=== PATIENT | female | born 1985 | race Caucasian/White ===

== ENCOUNTER 2017-08-20 09:46 | Inpatient (IN) ==
[2017-08-20] MEDS ORDERED: Vancomycin Inj 1,000 MG in Sodium Chlor 0.9% Inj 250 ML IV.SIG STA (10:19)
[2017-08-20] MEDS ORDERED: Piperacil/Tazo 4.5 GM Premix 4.5 GM/100 ML BAG IV.SIG STA (10:19)
--- NOTE | 2017-08-20 10:28 | ED ---
HPI General Chief complaint: Skin/Abscess/Foreign Body Stated complaint: Medical Time Seen by Provider: 08/20/17 10:11 Source: patient and old records reviewed Mode of arrival: ambulatory Limitations: no limitations History of Present Illness HPI narrative: 32-year-old female presents to the emergency department for evaluation of infection to her left upper chest wall as well as increasing pain and infection to her right great toe. Patient has IV drug user. She states she currently uses IV heroin. Patient was here recently and left AGAINST MEDICAL ADVICE on July 27 after being admitted for osteomyelitis of the right great toe and sepsis. She had surgery on the right great toe. Patient has not been seen or evaluated since he left AMA. She reports increasing swelling, pain , erythema to the right great toe. She reports fevers up to 102 in the past few days. She is afebrile at this time. She reports no chronic medical problems and takes no prescribed medications. She rates her pain 10/10. Moderate severity. complaint: other (Cellulitis) Onset (ago): week(s) Location: chest and R foot Severity: moderate Severity scale (1-10): 10 Quality: aching Pain Consistency: constant Relieving factors: none Exacerbating factors: none Context: none Associated symptoms: denies other symptoms Treatments prior to arrival: other (Previous admission, but left AMA) Related Data Home Medications Medication Instructions Recorded Confirmed No Known Home Medications 08/20/17 08/20/17 Allergies Allergy/AdvReac Type Severity Reaction Status Date / Time *MDRO Multi-Drug Resistant AdvReac Unknown NONE Uncoded 08/20/17 10:09 Organism Review of Systems Except as stated in HPI: all other systems reviewed are negative [facility] Social History Social History Substance History: Active Abuse Second Hand Smoke Exposure: Yes Smoking Status: Current every day smoker Tobacco Type: Cigarettes How Often Do You Have a Drink Containing Alcohol: Monthly or less Recent Travel in [facility] within the Last 8 Weeks: No Recent Out of Country Travel within the Last 8 Weeks: No Substance Abuse Detail Crack/Cocaine: Substance Use Status: Active Heroin: Substance Use Status: Active Route Used Substance Abuse: Intravenously Course Initial Documented Vital Signs Temperature 98.1 F 08/20/17 10:01 Pulse Rate 106 H 08/20/17 10:01 Respiratory Rate 18 08/20/17 10:01 Blood Pressure 111/74 08/20/17 10:01 Pulse Oximetry 100 08/20/17 10:01 Last Documented Vital Signs Temperature 98.1 F 08/20/17 10:05 Pulse Rate 78 08/20/17 14:00 Respiratory Rate 17 08/20/17 14:00 Blood Pressure 119/76 08/20/17 10:15 Pulse Oximetry 100 08/20/17 14:00 Medical Decision Making MDM Narrative Medical decision making narrative: 32-year-old female presents to the emergency department for evaluation of infection to her left upper chest wall and worsening infection to her right great toe. She underwent surgery recently for osteomyelitis in the left AMA. IV access established. CBC, CMP, lactic acid, PTT, PT/INR, ESR, CRP, blood cultures 2 are ordered and pending. Patient is given normal saline 30 mL/kg. Urine test is ordered and pending. Chest x-ray, x-ray of the right foot are ordered and pending. Patient is given vancomycin 1 g IV, Zosyn 4.5 g IV. CBC shows WBC of 9.3, neut % 83.6. ESR is pending. CMP shows no acute abnormality. CRP is 7.87. Lactic acid is 0.7. Chest x-ray shows no evidence of acute cardiopulmonary disease. X-ray of the right foot shows osteomyelitis proximal phalanx great toe progressed in the interval. Patient will be admitted for cellulitis of chest wall, osteomyelitis of the right great toe. Differential Diagnosis Differential Diagnosis: Sepsis versus osteomyelitis versus cellulitis versus abscess Medical Records Medical records reviewed: Yes I reviewed the patient's medical records. Lab Data Result diagrams: 08/20/17 12:00 08/20/17 12:00 Lab Results 08/20/17 08/20/17 08/20/17 Range/Units 12:00 12:00 12:00 WBC 9.3 (4.0-11.0) th/mm3 RBC 4.05 (4.00-5.30) mil/mm3 Hgb 11.0 L (11.6-15.3) gm/dL Hct 33.3 L (35.0-46.0) % MCV 82.2 (80.0-100.0) fL MCH 27.2 (27.0-34.0) pg MCHC 33.0 (32.0-36.0) % RDW 14.9 (11.6-17.2) % Plt Count 670 H (150-450) th/mm3 MPV 6.8 L (7.0-11.0) fL Neut % (Auto) 83.6 H (16.0-70.0) % Lymph % (Auto) 11.4 (9.0-44.0) % [place] % (Auto) 4.4 (0.0-8.0) % Eos % (Auto) 0.4 (0.0-4.0) % Baso % (Auto) 0.2 (0.0-2.0) % Neut # (Auto) 7.8 H (1.8-7.7) th/mm3 Lymph # (Auto) 1.1 (1.0-4.8) th/mm3 [place] # (Auto) 0.4 (0.0-0.9) th/mm3 Eos # (Auto) 0.0 (0.0-0.4) th/mm3 Baso # (Auto) 0.0 (0.0-0.2) th/mm3 WBC Differential . Differential Comment Auto diff final ESR (0-20) mm/hr PT 11.1 (9.8-11.6) sec INR 1.1 Ratio APTT 30.8 H (24.3-30.1) sec Sodium 141 (136-145) meq/L Potassium 3.8 (3.5-5.1) meq/L Chloride 105 (98-107) meq/L Carbon Dioxide 26.4 (21.0-32.0) meq/L Anion Gap 10 (5-15) meq/L BUN 10 (7-18) mg/dL Creatinine 0.35 L (0.50-1.00) mg/dL Estimated GFR Greater than 89 (>89) mL/min Random Glucose 82 (74-106) mg/dL Lactic Acid (0.4-2.0) mmol/L Calcium 8.6 (8.5-10.1) mg/dL Total Bilirubin 0.3 (0.2-1.0) mg/dL AST 7 L (15-37) U/L ALT 12 (10-53) U/L Alkaline Phosphatase 93 (45-117) U/L C-Reactive Protein (0.00-0.30) mg/dL Total Protein 7.2 (6.4-8.2) g/dL Albumin 2.7 L (3.4-5.0) g/dL 08/20/17 08/20/17 08/20/17 Range/Units 12:00 12:00 12:00 WBC (4.0-11.0) th/mm3 RBC (4.00-5.30) mil/mm3 Hgb (11.6-15.3) gm/dL Hct (35.0-46.0) % MCV (80.0-100.0) fL MCH (27.0-34.0) pg MCHC (32.0-36.0) % RDW (11.6-17.2) % Plt Count (150-450) th/mm3 MPV (7.0-11.0) fL Neut % (Auto) (16.0-70.0) % Lymph % (Auto) (9.0-44.0) % [place] % (Auto) (0.0-8.0) % Eos % (Auto) (0.0-4.0) % Baso % (Auto) (0.0-2.0) % Neut # (Auto) (1.8-7.7) th/mm3 Lymph # (Auto) (1.0-4.8) th/mm3 [place] # (Auto) (0.0-0.9) th/mm3 Eos # (Auto) (0.0-0.4) th/mm3 Baso # (Auto) (0.0-0.2) th/mm3 WBC Differential Differential Comment ESR 73 H (0-20) mm/hr PT (9.8-11.6) sec INR Ratio APTT (24.3-30.1) sec Sodium (136-145) meq/L Potassium (3.5-5.1) meq/L Chloride (98-107) meq/L Carbon Dioxide (21.0-32.0) meq/L Anion Gap (5-15) meq/L BUN (7-18) mg/dL Creatinine (0.50-1.00) mg/dL Estimated GFR (>89) mL/min Random Glucose (74-106) mg/dL Lactic Acid 0.7 (0.4-2.0) mmol/L Calcium (8.5-10.1) mg/dL Total Bilirubin (0.2-1.0) mg/dL AST (15-37) U/L ALT (10-53) U/L Alkaline Phosphatase (45-117) U/L C-Reactive Protein 7.87 H (0.00-0.30) mg/dL Total Protein (6.4-8.2) g/dL Albumin (3.4-5.0) g/dL Imaging Data Radiologist's impression: ITS Impressions Chest X-Ray 08/20/17 10:19 CONCLUSION: 1. Resolution of mild bilateral airspace disease 2. No evidence of acute cardiopulmonary process. Foot X-Ray 08/20/17 10:23 CONCLUSION: Osteomyelitis proximal phalanx great toe progressed in the interval. Discharge Plan Discharge Disposition Patient Disposition: 30 Still Patient Discharge Details Diagnosis: Acute osteomyelitis of toe, Cellulitis, IVDU (intravenous drug user) Physicians Team ED Provider: Moris Liang ED Midlevel Provider: Erika Gonzáles Primary Care Provider: Primary Care Niki Alejandro Attending Provider: Kenn Chapman Status ED Status: Admitted Patient ED Sepsis Event Note Evaluation Current stage of sepsis: ruled out Reason for ruling out sepsis: no elevated WBC count, lactic not elevated Focused Exam Vital Signs Temp Pulse Resp BP Pulse Ox 08/20/17 14:00 78 17 100 08/20/17 10:30 100 08/20/17 10:15 94 H 17 119/76 08/20/17 10:05 98.1 F 114 H 16 111/74 98 08/20/17 10:01 98.1 F 106 H 18 111/74 100
--- NOTE | 2017-08-20 10:46 | XR ---
EXAM DATE: 08/20/2017 10:41 AM EDT AGE/SEX: 32 years / Female INDICATIONS: Abscess on midline upper chest. CLINICAL DATA: This is the patient's initial encounter. Patient reports that signs and symptoms have been present for 1 day and indicates a pain score of 0/10. MEDICAL/SURGICAL HISTORY: . Smoking. None. COMPARISON: [facility] – [place], CHEST SINGLE AP, 07/24/2017. . FINDINGS: Bilateral midlung airspace disease described previously has resolved. Lungs are well-expanded and clear. Heart and mediastinal structures appear normal. CONCLUSION: 1. Resolution of mild bilateral airspace disease 2. No evidence of acute cardiopulmonary process. Electronically signed by: Tien Díaz MD 08/20/2017 10:44 AM EDT
--- NOTE | 2017-08-20 10:49 | XR ---
EXAM DATE: 08/20/2017 10:46 AM EDT AGE/SEX: 32 years / Female INDICATIONS: Pain in right first digit post surgery on June 17, redness and swelling. CLINICAL DATA: This is the patient's initial encounter. Patient reports that signs and symptoms have been present for 2 months and indicates a pain score of 10/10. MEDICAL/SURGICAL HISTORY: None. . Bone shaving, right first digit. COMPARISON: [facility] [place], FOOT RIGHT COMPLETE ([id number]), 07/24/2017. . FINDINGS: Osteomyelitis involving the proximal phalanx of the great toe progressed in the interval. No other bony destruction is evident. CONCLUSION: Osteomyelitis proximal phalanx great toe progressed in the interval. Electronically signed by: Gordo Coley MD 08/20/2017 10:48 AM EDT
[2017-08-20] MEDS ORDERED: Ketorolac Inj 30 MG/ML (IVP) Vial IV.PUSH ONE (12:14)
[2017-08-20 12:32] LABS: Baso % (Auto) 0.2 % (0.0-2.0); Eos % (Auto) 0.4 % (0.0-4.0); Hematocrit 33.3 % (35.0-46.0); Lymph # (Auto) 1.1 th/mm3 (1.0-4.8); Lymph % (Auto) 11.4 % (9.0-44.0); Mean Corpuscular Hemoglobin 27.2 pg (27.0-34.0); Mean Corpuscular Volume 82.2 fL (80.0-100.0); Mean Platelet Volume 6.8 fL (7.0-11.0); Mono # (Auto) 0.4 th/mm3 (0.0-0.9); Mono % (Auto) 4.4 % (0.0-8.0); Neut # (Auto) 7.8 th/mm3 (1.8-7.7); Neut % (Auto) 83.6 % (16.0-70.0); Platelet Count 670 th/mm3 (150-450); Red Blood Count 4.05 mil/mm3 (4.00-5.30); Red Cell Distribution Width 14.9 % (11.6-17.2); White Blood Count 9.3 th/mm3 (4.0-11.0)
[2017-08-20 12:40] LABS: Activated Partial Thrombo Time 30.8 sec (24.3-30.1); INR 1.1 Ratio; Prothrombin Time 11.1 sec (9.8-11.6)
[2017-08-20 12:52] LABS: Alanine Aminotransferase 12 U/L (10-53); Albumin 2.7 g/dL (3.4-5.0); Anion Gap 10 meq/L (5-15); Aspartate Aminotransferase 7 U/L (15-37); Blood Urea Nitrogen 10 mg/dL (7-18); Calcium 8.6 mg/dL (8.5-10.1); Carbon Dioxide 26.4 meq/L (21.0-32.0); Chloride 105 meq/L (98-107); Glomerular Filtration Rate Greater Than 89 mL/min (>89); Glucose,Random 82 mg/dL (74-106); Potassium 3.8 meq/L (3.5-5.1); Sodium 141 meq/L (136-145)
[2017-08-20 12:54] LABS: Alkaline Phosphatase 93 U/L (45-117); Total Protein 7.2 g/dL (6.4-8.2)
[2017-08-20] MEDS ORDERED: Acetaminophen 325 MG Tablet PO PRN (14:27)
[2017-08-20] MEDS ORDERED: Bisacodyl 10 MG Supp RECTAL PRN (14:27)
[2017-08-20] MEDS ORDERED: Naloxone Inj 0.4 MG/ML Vial IV.PUSH PRN (15:14)
--- NOTE | 2017-08-20 15:27 | P.HP ---
History of Present Illness Primary Care Physician: No Primary Care Physician Chief Complaint: Right great toe pain and multiple skin abscesses History of Present Illness: 32-year-old female with history of IVDU, right great toe osteomyelitis and previously admitted to [place] on July 25, 2017, seen by podiatry and underwent incision and drainage along with debridement of right great toe osteomyelitis July 27, 2017, as well as infectious disease specialist will have patient on vancomycin and cefepime for bacteremia, skin abscesses and osteomyelitis however patient signed AMA then, came to the ED today for evaluation of painful right great toe and multiple abscesses. Patient has not had any follow-up after signing AMA last month. She now complaining of anterior left chest abscess and significant right great toe pain rated over 10 in intensity. Patient reports subjective fever. She continue use of IVDU. - Diagnosis (1) Abscess of skin and subcutaneous tissue (2) Acute osteomyelitis of toe (3) Cellulitis (4) IVDU (intravenous drug user) Inpatient Certification: I certify that the inpatient services were ordered in accordance with Medicare regulations governing the order. This includes certification that hospital inpatient services are reasonable and necessary and in the case of services not specified as inpatient-only under 42 CFR 419.22(n), that they are appropriately provided as inpatient services in accordance to with the 2-midnight benchmark under 43 CFR 412.3(e) Estimated Total Length of Stay (Days): 2 Plans for Post Hospital Care: Not yet determined Review of Systems All other systems reviewed negative except as stated in HPI PMFSH - History History Provided By: Patient - Tobacco History Second Hand Smoke Exposure: Yes Tobacco Use In Past 30 Days: Yes Smoking Status: Current every day smoker Tobacco Type: Cigarettes - Alcohol History How Often Do You Have a Drink Containing Alcohol: Monthly or less - Substance Use History Substance History: Active Abuse - Substance Use Type Crack/Cocaine Status: Active Heroin Status: Active Route Used: Intravenously - Travel History Recent Travel in the [place] Within the Last 8 Weeks: No Recent Travel Out of the Country Within the Last 8 Weeks: No - Immunization History Tetanus Immunization: <5 Years Medications and Allergies Active Medications: Active Medications Acetaminophen (Tylenol) 650 mg PO Q4H PRN PRN Reason: Temp > 100.4 Hydrocodone Bitart/Acetaminophen ([place] 10/325) 1 tab PO Q4H PRN PRN Reason: PAIN SCALE 6 TO 10 Al Hydroxide/Mg Hydroxide (Milk Of Magnesia Liq) 30 ml PO Q12H PRN PRN Reason: Mild Constipation Bisacodyl (Dulcolax Supp) 10 mg RECTAL DAILY PRN PRN Reason: SEVERE CONSITIPATION Lactated Ringer's (Lr 1000 Ml Inj) 1,000 mls @ 70 mls/hr IV.CONT .[id number] AMBIKA Cefepime HCl 2,000 mg/ Sodium (Chloride) 100 mls @ 200 mls/hr IV.SIG Q12H [facility] Pharmacy Profile Note (Vancomycin Consult Pharmacy) 0 mls @ 0 mls/hr OTHER UNSCH AMBIKA Vancomycin HCl 1,250 mg/ (Sodium Chloride) 262.5 mls @ 250 mls/hr IV.SIG Q24H [facility] Lactobacillus Acidophilus (Lactinex) 1 tab PO BID [facility] Lactulose (Lactulose Liq) 30 ml PO DAILY PRN PRN Reason: SEVERE CONSITIPATION Naloxone HCl (Narcan Inj) 0.4 mg IV.PUSH UNSCH PRN PRN Reason: SEE LABEL COMMENTS Ondansetron HCl (Zofran Inj) 4 mg IV.PUSH Q6H PRN PRN Reason: NAUSEA OR VOMITING Oxycodone HCl (Roxicodone) 5 mg PO Q4H PRN PRN Reason: PAIN SCALE 3 TO 5 Senna/Docusate Sodium (Lori-Colace) 1 tab PO BID [facility] Sennosides (Senokot) 17.2 mg PO Q12H PRN PRN Reason: Moderate Constipation Temazepam (Restoril) 15 mg PO HS PRN PRN Reason: INSOMNIA Allergies Allergy/AdvReac Type Severity Reaction Status Date / Time *MDRO Multi-Drug Resistant AdvReac Unknown NONE Uncoded 08/20/17 10:09 Organism Home Medications Medication Instructions Recorded Confirmed Type No Known Home Medications 08/20/17 08/20/17 History Exam Vital signs: Vital Signs 08/20/17 10:01 08/20/17 10:05 08/20/17 10:15 Temperature 98.1 F 98.1 F Pulse Rate 106 H 114 H 94 H Respiratory Rate 18 16 17 Blood Pressure 111/74 111/74 119/76 Pulse Oximetry 100 98 08/20/17 10:30 08/20/17 14:00 Temperature Pulse Rate 78 Respiratory Rate 17 Blood Pressure Pulse Oximetry 100 100 Intake & Output 08/19/17 08/20/17 08/20/17 18:59 06:59 18:59 Weight 49.895 kg Narrative: GENERAL: mild distress SKIN: Warm and dry. Multiple skin abscesses HEAD: Atraumatic. Normocephalic. EYES: Pupils equal and round. No scleral icterus. No injection or drainage. ENT: No nasal bleeding or discharge. Mucous membranes pink and moist. NECK: Trachea midline. No JVD. CARDIOVASCULAR: Regular rate and rhythm. RESPIRATORY: No accessory muscle use. Clear to auscultation. Breath sounds equal bilaterally. GASTROINTESTINAL: Abdomen soft, non-tender, nondistended. Hepatic and splenic margins not palpable. MUSCULOSKELETAL: Extremities without clubbing, cyanosis, or edema. No obvious deformities. Right great toe ulceration with surrounding cellulitis and erythema NEUROLOGICAL: Awake and alert. No obvious cranial nerve deficits. Motor grossly within normal limits. Five out of 5 muscle strength in the arms and legs. Normal speech. PSYCHIATRIC: Appropriate mood and affect; insight and judgment normal. Results - Labs CBC & Chem 7: 08/20/17 12:00 08/20/17 12:00 Labs: Laboratory Results - last 24 hr 08/20/17 08/20/17 08/20/17 12:00 12:00 12:00 WBC 9.3 RBC 4.05 Hgb 11.0 L Hct 33.3 L MCV 82.2 MCH 27.2 MCHC 33.0 RDW 14.9 Plt Count 670 H MPV 6.8 L Neut % (Auto) 83.6 H Lymph % (Auto) 11.4 [place] % (Auto) 4.4 Eos % (Auto) 0.4 Baso % (Auto) 0.2 Neut # (Auto) 7.8 H Lymph # (Auto) 1.1 [place] # (Auto) 0.4 Eos # (Auto) 0.0 Baso # (Auto) 0.0 WBC Differential . Differential Comment Auto diff final ESR PT 11.1 INR 1.1 APTT 30.8 H Sodium 141 Potassium 3.8 Chloride 105 Carbon Dioxide 26.4 Anion Gap 10 BUN 10 Creatinine 0.35 L Estimated GFR Greater than 89 Random Glucose 82 Lactic Acid Calcium 8.6 Total Bilirubin 0.3 AST 7 L ALT 12 Alkaline Phosphatase 93 C-Reactive Protein Total Protein 7.2 Albumin 2.7 L 08/20/17 08/20/17 08/20/17 12:00 12:00 12:00 WBC RBC Hgb Hct MCV MCH MCHC RDW Plt Count MPV Neut % (Auto) Lymph % (Auto) [place] % (Auto) Eos % (Auto) Baso % (Auto) Neut # (Auto) Lymph # (Auto) [place] # (Auto) Eos # (Auto) Baso # (Auto) WBC Differential Differential Comment ESR 73 H PT INR APTT Sodium Potassium Chloride Carbon Dioxide Anion Gap BUN Creatinine Estimated GFR Random Glucose Lactic Acid 0.7 Calcium Total Bilirubin AST ALT Alkaline Phosphatase C-Reactive Protein 7.87 H Total Protein Albumin - Imaging Impressions Chest X-Ray 08/20/17 10:19 CONCLUSION: 1. Resolution of mild bilateral airspace disease 2. No evidence of acute cardiopulmonary process. Foot X-Ray 08/20/17 10:23 CONCLUSION: Osteomyelitis proximal phalanx great toe progressed in the interval. Caprini VTE Risk Assessment Caprini VTE Risk Assessment: No/Low Risk (score <= 1) Caprini Risk Assessment Model: Point Value = 1 Point Value = 2 Point Value = 3 Point Value = 5 Age 41-60 Minor surgery BMI > 25 kg/m2 Swollen legs Varicose veins or History of unexplained or recurrent spontaneous Oral contraceptives or hormone replacement Sepsis (< 1 month) Serious lung disease, including pneumonia (< 1 month) Abnormal pulmonary function Acute myocardial infarction Congestive heart failure (< 1 month) History of inflammatory bowel disease Medical patient at bed rest Age 61-74 Arthroscopic surgery Major open surgery (> 45 min) Laparoscopic surgery (> 45 min) Malignancy Confined to bed (> 72 hours) Immobilizing plaster cast Central venous access Age >= 75 History of VTE Family history of VTE Factor V Leiden Prothrombin [id number] Lupus anticoagulant Anticardiolipin antibodies Elevated serum homocysteine Heparin-induced thrombocytopenia Other congenital or acquired thrombophilia Stroke (< 1 month) Elective arthroplasty Hip, pelvis, or leg fracture Acute spinal cord injury (< 1 month) Prophylaxis Regimen: Total Risk Factor Score Risk Level Prophylaxis Regimen 0-1 Low Early ambulation 2 Moderate Order ONE of the following: *Sequential Compression Device (SCD) *Heparin 5000 units SQ BID 3-4 Higher Order ONE of the following medications: *Heparin 5000 units SQ TID *Enoxaparin/Lovenox 40 mg SQ daily (WT < 150 kg, CrCl > 30 mL/min) *Enoxaparin/Lovenox 30 mg SQ daily (WT < 150 kg, CrCl > 10-29 mL/min) *Enoxaparin/Lovenox 30 mg SQ BID (WT < 150 kg, CrCl > 30 mL/min) AND/OR *Sequential Compression Device (SCD) 5 or more Highest Order ONE of the following medications: *Heparin 5000 units SQ TID (Preferred with Epidurals) *Enoxaparin/Lovenox 40 mg SQ daily (WT < 150 kg, CrCl > 30 mL/min) *Enoxaparin/Lovenox 30 mg SQ daily (WT < 150 kg, CrCl > 10-29 mL/min) *Enoxaparin/Lovenox 30 mg SQ BID (WT < 150 kg, CrCl > 30 mL/min) AND *Sequential Compression Device (SCD) Assessment and Plan - Assessment (1) Abscess of skin and subcutaneous tissue Code(s): L02.91 - Cutaneous abscess, unspecified Status: Acute (2) Acute osteomyelitis of toe Code(s): M86.179 - Other acute osteomyelitis, unspecified ankle and foot Status: Acute (3) Cellulitis Code(s): L03.90 - Cellulitis, unspecified Status: Acute (4) IVDU (intravenous drug user) Code(s): F19.90 - Other psychoactive substance use, unspecified, uncomplicated Status: Acute - Plan 32-year-old female with Right great toe osteomyelitis Status post vancomycin and Zosyn in ED 1, will continue vancomycin and start cefepime IV Consult podiatry for evaluation for possible incision and drainage along with debridement versus amputation Consult infectious disease specialist Skin abscesses Cellulitis Due to MRSA Will treat with vancomycin and cefepime Monitor culture report IVDU Strongly counseled against Consider 2D echo to rule out endocarditis Check HIV Tobacco abuse Tobacco counseling cessation provided Start nicotine patch (2) Acute osteomyelitis of toe Qualifiers: Laterality: right Qualified Code(s): M86.171 - Other acute osteomyelitis, right ankle and foot (3) Cellulitis Qualifiers: Site of cellulitis: trunk Site of cellulitis of trunk: chest wall Qualified Code(s): L03.313 - Cellulitis of chest wall
[2017-08-20] MEDS ORDERED: Vancomycin Consult Pharmacy 1 EACH OTHER SCH (16:00)
[2017-08-20] MEDS: Vancomycin Inj 1,000 MG in Sodium Chlor 0.9% Inj 250 ML IV.SIG SCH (17:46)
--- NOTE | 2017-08-20 18:52 | MB ---
cc: Too Piña DPM, Dennis B DPM DATE: 08/20/2017 REASON FOR CONSULTATION: Right hallux ulcer, osteomyelitis. HISTORY OF PRESENT ILLNESS: This is a 32-year-old female who has a history of right proximal phalanx incision, drainage, debridement that was performed by the undersigned. The patient left AMA. She now has returned to the hospital requesting treatments. She does admit to drug use while she left the hospital. She is not in significant discomfort. PAST MEDICAL HISTORY: Osteomyelitis, cellulitis. The patient has a history of IV drug abuse, smoker. History of crack cocaine. SOCIAL HISTORY: She admits that she is homeless. She has a history of MRSA. ALLERGIES: NO KNOWN DRUG ALLERGIES LISTED MEDICATIONS: She is currently on cefepime and vancomycin. Please see complete med list in chart, also on Zosyn. PHYSICAL EXAMINATION: VITAL SIGNS: Temperature 97.6, pulse rate 89, respiratory rate 20, blood pressure 118/71. She is sating 100% on room air. GENERAL: This is an alert and oriented female seen bedside exhibiting nonlabored respiration. EXTREMITIES: Right lower extremity is examined. There is noted to be a necrotic purulent incision of the dorsal aspect of right hallux IPJ with crepitus and instability. Moderate edema and erythema noted. Pedal pulse is palpable. Sensation intact. LABORATORY DATA: White blood cell 9.3, hemoglobin and hematocrit, 11/33, platelet count 670. ESR 73. Coagulation profile: PT 11.1, INR 1.1. Chem-7: Sodium 141, potassium 3.8, chloride 105, CO2 of 26.4, BUN 10, creatinine 0.35. C-reactive protein 7.87, albumin 2.7. IMAGING STUDIES: Osteomyelitis of the proximal phalanx great toe with positive progression worsening. ASSESSMENT AND PLAN: Right hallux osteomyelitis, poor patient compliance. We attempted to salvage the digit. The patient needed long-term IV antibiotics; however, she left AMA. I do feel at this time she is best served with a hallux amputation to eradicate the bone infection; however, there is a high chance that she will leave the hospital shortly after having the hallux amputation. If not compliant; this will progress to a first metatarsal infection and furthermore to a mid foot infection, furthermore to hindfoot infection, likely resulting in loss of limb if not worse. I educated the patient in great details of further progression if she continues to be noncompliant. She understood. She vowed to be compliant. I am hoping the patient can eat, get hydrated and prepare the soft tissue envelope with 2-3 days of IV antibiotics in anticipation for hallux amputation sometime early in the week. Thank you for this consultation. NANCY Cardenas/ , 06:25 PM , 06:50 PM ERIC
--- NOTE | 2017-08-20 19:38 | MB ---
cc: Jesse Tello MD, Franklyn F MD DATE: 08/20/2017 REQUESTING PHYSICIAN: Dr. Chapman REASON FOR CONSULTATION:: A 32-year-old female with IVDU, history of right great toe osteomyelitis and cellulitis, multiple skin abscesses. HISTORY OF PRESENT ILLNESS: This is a 32-year-old white female who is known to me from recent admission. The patient signed out against medical advice while she was being treated for sepsis and osteomyelitis involving the right great toe. She developed multiple skin abscesses and was having severe pain when she presented to the emergency department. Her cultures grew out MRSA from the blood and the right great toe wound. She was evaluated by podiatry and she had surgical intervention, which consisted of incision and drainage and bone debridement. The patient was notified that she would need long-term IV antibiotics. However, she signed out of the hospital against medical advice. She returned to the emergency department, because she was having increasing pain and she developed swelling and redness at the right chest wall at the upper aspect of the sternum and towards the left clavicle. She states that she was having difficulty raising her left arm rather because of pain. She went back to using IV drugs while she was outside of the hospital in the form of IV heroin and crack cocaine. She is afebrile. Blood cultures were repeated today. The patient was seen in the ED earlier today. Foot x-ray reveals osteomyelitis of the proximal phalanx of the great toe, which has progressed since her last admission. Chest x-ray shows resolution of mild bilateral airspace disease. During last hospitalization, echocardiogram revealed trace mitral valve regurgitation and also trace tricuspid valve regurgitation. There is no mention of valve vegetation. PAST MEDICAL HISTORY: IV drug abuse. ALLERGIES: NO KNOWN DRUG ALLERGIES. MEDICATIONS: 1. Cefepime. 2. Vancomycin. 3. Oxycodone 5 mg p.o. q.4 hours p.r.n. 4. Nicotine patch. SOCIAL HISTORY: Positive tobacco use, occasional alcohol. Positive IV drug use. FAMILY HISTORY: Noncontributory. REVIEW OF SYSTEMS: Significant for pain. Otherwise, all systems are reviewed and are negative. PHYSICAL EXAMINATION: GENERAL: This is a slender female who is in no acute distress but appears chronically ill. She is awake and alert. VITAL SIGNS: Includes temperature of 97.6, BP 118/71, respirations 20, heart rate 89. HEENT: The head is atraumatic. Extraocular movements grossly intact. Pupils reactive to light. No icterus. Oropharynx moist mucosa without lesions. NECK: Supple without adenopathy. LUNGS: Clear. Decreased breath sounds bilaterally. HEART: Regular S1 and S2. No murmurs heard. CHEST: There is erythema and swelling over the upper sternum and left clavicle. ABDOMEN: Bowel sounds present. Soft, no tenderness appreciated. No masses palpable. RECTAL: Not performed. EXTREMITIES: Multiple nodular raised skin lesions of the upper extremities, including the antecubital areas and forearms and the right great toe is swollen and there is mild erythema. There is a small amount of maceration at the dorsal aspect of the great toe where the patient had undergone incision and debridement. SKIN: No diffuse rash. NEUROLOGIC: No gross focal findings. PSYCHIATRIC: Patient is calm and cooperative. LABORATORY DATA: WBC 9.3, platelets 670, hemoglobin 11.0. ESR 73, creatinine 0.35, estimated GFR greater than 89. LFTs normal. IMPRESSION: 1. Multiple skin abscesses. 2. Chest wall abscess/cellulitis. 3. Sepsis. The patient is known to have methicillin resistant staph aureus on recent hospitalization prior to signing out against medical advice and not receiving antibiotics on discharge. 4. Intravenous drug use. 5. Osteomyelitis of the right great toe. RECOMMENDATIONS: 1. Continue vancomycin. 2. Continue cefepime. 3. Follow the new blood cultures. 4. Monitor the chest wound. Consider doing a CT scan of the chest to see if she is not developing abscess versus osteomyelitis. 5. Follow clinical response to treatment and antibiotics to be adjusted depending on new findings and cultures. Thank you for this consultation. The patient will be monitored while she remains in the hospital. MD SHILA Ashraf/ , 06:56 PM , 07:36 PM
[2017-08-20] MEDS: Lactobacillus Acidophilus/L. Spores Tablet PO SCH (20:41)
[2017-08-20] MEDS: Senna/Docusate Sodium 8.6/50 MG Tablet PO SCH (20:41)
[2017-08-21] MEDS: Vancomycin Inj 1,000 MG in Sodium Chlor 0.9% Inj 250 ML IV.SIG SCH ×2 (05:03→17:00)
[2017-08-21] MEDS ORDERED: Vancomycin Inj 1,250 MG in Sodium Chlor 0.9% Inj 250 ML IV.SIG SCH (09:00)
[2017-08-21] MEDS: Lactobacillus Acidophilus/L. Spores Tablet PO SCH ×2 (09:10→22:24)
[2017-08-21] MEDS: Senna/Docusate Sodium 8.6/50 MG Tablet PO SCH ×2 (09:10→22:24)
--- NOTE | 2017-08-21 10:57 | P.PN ---
Subjective Interval history: Follow-up right great toe osteomyelitis/skin abscesses and cellulitis August 21, 2017-patient seen and examined, complains of left anterior chest pain at the site of sKIN: There is an indurated area in the. Afebrile. Case discussed with Dr. Lund, podiatry Physical Exam Vital signs: Vital Signs 08/20/17 14:00 08/20/17 14:27 08/20/17 18:04 Temperature 97.6 F Pulse Rate 78 87 89 Respiratory Rate 17 17 20 Blood Pressure 118/71 Pulse Oximetry 100 96 100 08/20/17 20:00 08/21/17 00:00 08/21/17 04:00 Temperature 98.1 F 98.7 F 98 F Pulse Rate 99 H 106 H 101 H Respiratory Rate 18 18 18 Blood Pressure 123/62 117/69 122/63 Pulse Oximetry 98 99 98 08/21/17 08:00 Temperature 98.2 F Pulse Rate 96 H Respiratory Rate 18 Blood Pressure 122/83 Pulse Oximetry 97 Intake & Output 08/20/17 08/21/17 08/21/17 18:59 06:59 18:59 Intake Total 250 / 250 1060 / 1060 1000 / 1000 Output Total 300 / 300 Balance 250 / 250 760 / 760 1000 / 1000 Weight 44.906 kg 44.6 kg Intake: IV 250 / 250 700 / 700 1000 / 1000 LR 1000 mL Inj 1,000 ML @ 70 1000 / 1000 mls/hr IV.CONT .[id number] [facility] Rx# :[id number] Maxipime Inj 2,000 MG In NS Inj 100 / 100 100 ML @ 200 mls/hr IV.SIG Q12H [facility] Rx#:[id number] Zosyn 4.5 GM Premix 4.5 gm In 100 / 100 100 ml @ 200 mls/hr IV.SIG STAT STA Rx#:[id number] Vancomycin Inj 1,000 MG In NS 250 / 250 500 / 500 Inj 250 ML @ 250 mls/hr IV.SIG Q12H [facility] Rx#:[id number] Oral 360 / 360 Output: Urine 300 / 300 Other: # Voids 1 1 # Bowel Movements 1 Weight On Admission 44.906 kg Narrative: GENERAL: NAD, A&O x 3 SKIN: Warm and dry. Multiple skin abscesses anterior left chest, bilateral upper extremities HEAD: Normocephalic. EYES: No scleral icterus. No injection or drainage. NECK: Supple, trachea midline. No JVD or lymphadenopathy. CARDIOVASCULAR: Tachy,regular rate and rhythm without murmurs, gallops, or rubs. RESPIRATORY: Breath sounds equal bilaterally. No accessory muscle use. GASTROINTESTINAL: Abdomen soft, non-tender, nondistended. MUSCULOSKELETAL: No cyanosis, or edema. BACK: Nontender without obvious deformity. No CVA tenderness. Results - Labs CBC & Chem 7: 08/20/17 12:00 08/20/17 12:00 Laboratory Results - last 24 hr 08/20/17 08/20/17 08/20/17 12:00 12:00 12:00 WBC 9.3 RBC 4.05 Hgb 11.0 L Hct 33.3 L MCV 82.2 MCH 27.2 MCHC 33.0 RDW 14.9 Plt Count 670 H MPV 6.8 L Neut % (Auto) 83.6 H Lymph % (Auto) 11.4 [place] % (Auto) 4.4 Eos % (Auto) 0.4 Baso % (Auto) 0.2 Neut # (Auto) 7.8 H Lymph # (Auto) 1.1 [place] # (Auto) 0.4 Eos # (Auto) 0.0 Baso # (Auto) 0.0 WBC Differential . Differential Comment Auto diff final ESR PT 11.1 INR 1.1 APTT 30.8 H Sodium 141 Potassium 3.8 Chloride 105 Carbon Dioxide 26.4 Anion Gap 10 BUN 10 Creatinine 0.35 L Estimated GFR Greater than 89 Random Glucose 82 Lactic Acid Calcium 8.6 Total Bilirubin 0.3 AST 7 L ALT 12 Alkaline Phosphatase 93 C-Reactive Protein Total Protein 7.2 Albumin 2.7 L HIV 1&2 Ab/P24 Ag 4thGn 08/20/17 08/20/17 08/20/17 12:00 12:00 12:00 WBC RBC Hgb Hct MCV MCH MCHC RDW Plt Count MPV Neut % (Auto) Lymph % (Auto) [place] % (Auto) Eos % (Auto) Baso % (Auto) Neut # (Auto) Lymph # (Auto) [place] # (Auto) Eos # (Auto) Baso # (Auto) WBC Differential Differential Comment ESR 73 H PT INR APTT Sodium Potassium Chloride Carbon Dioxide Anion Gap BUN Creatinine Estimated GFR Random Glucose Lactic Acid 0.7 Calcium Total Bilirubin AST ALT Alkaline Phosphatase C-Reactive Protein 7.87 H Total Protein Albumin HIV 1&2 Ab/P24 Ag 4thGn 08/20/17 19:59 WBC RBC Hgb Hct MCV MCH MCHC RDW Plt Count MPV Neut % (Auto) Lymph % (Auto) [place] % (Auto) Eos % (Auto) Baso % (Auto) Neut # (Auto) Lymph # (Auto) [place] # (Auto) Eos # (Auto) Baso # (Auto) WBC Differential Differential Comment ESR PT INR APTT Sodium Potassium Chloride Carbon Dioxide Anion Gap BUN Creatinine Estimated GFR Random Glucose Lactic Acid Calcium Total Bilirubin AST ALT Alkaline Phosphatase C-Reactive Protein Total Protein Albumin HIV 1&2 Ab/P24 Ag 4thGn Nonreactive Assessment and Plan - Assessment (1) Abscess of skin and subcutaneous tissue Code(s): L02.91 - Cutaneous abscess, unspecified Status: Acute (2) Acute osteomyelitis of toe Code(s): M86.179 - Other acute osteomyelitis, unspecified ankle and foot Status: Acute (3) Cellulitis Code(s): L03.90 - Cellulitis, unspecified Status: Acute (4) IVDU (intravenous drug user) Code(s): F19.90 - Other psychoactive substance use, unspecified, uncomplicated Status: Acute - Plan 32-year-old female with Right great toe osteomyelitis Status post vancomycin and Zosyn in ED 1, continue vancomycin and cefepime IV pending report Case discussed with podiatry and appreciate input for evaluation for possible amputation Consult infectious disease specialist Skin abscesses Anterior left chest abscess Cellulitis Check soft tissue ultrasound, and consult general surgery versus CTS pending report Continue treatment with vancomycin and cefepime ID consultation pending Monitor culture report IVDU Strongly counseled against Consider 2D echo to rule out endocarditis HIV negative Tobacco abuse Tobacco counseling cessation provided Continue nicotine patch (2) Acute osteomyelitis of toe Qualifiers: Laterality: right Qualified Code(s): M86.171 - Other acute osteomyelitis, right ankle and foot (3) Cellulitis Qualifiers: Site of cellulitis: trunk Site of cellulitis of trunk: chest wall Qualified Code(s): L03.313 - Cellulitis of chest wall
--- NOTE | 2017-08-21 11:00 | P.PNPOD ---
Subjective Interval history: No events overnight agreeable to amputation of hallux, having pain at the clavicle area Physical Exam Vital signs: Vital Signs 08/20/17 14:00 08/20/17 14:27 08/20/17 18:04 Temperature 97.6 F Pulse Rate 78 87 89 Respiratory Rate 17 17 20 Blood Pressure 118/71 Pulse Oximetry 100 96 100 08/20/17 20:00 08/21/17 00:00 08/21/17 04:00 Temperature 98.1 F 98.7 F 98 F Pulse Rate 99 H 106 H 101 H Respiratory Rate 18 18 18 Blood Pressure 123/62 117/69 122/63 Pulse Oximetry 98 99 98 08/21/17 08:00 Temperature 98.2 F Pulse Rate 96 H Respiratory Rate 18 Blood Pressure 122/83 Pulse Oximetry 97 Intake & Output 08/20/17 08/21/17 08/21/17 18:59 06:59 18:59 Intake Total 250 / 250 1060 / 1060 1000 / 1000 Output Total 300 / 300 Balance 250 / 250 760 / 760 1000 / 1000 Weight 44.906 kg 44.6 kg Intake: IV 250 / 250 700 / 700 1000 / 1000 LR 1000 mL Inj 1,000 ML @ 70 1000 / 1000 mls/hr IV.CONT .[id number] [facility] Rx# :[id number] Maxipime Inj 2,000 MG In NS Inj 100 / 100 100 ML @ 200 mls/hr IV.SIG Q12H [facility] Rx#:[id number] Zosyn 4.5 GM Premix 4.5 gm In 100 / 100 100 ml @ 200 mls/hr IV.SIG STAT STA Rx#:[id number] Vancomycin Inj 1,000 MG In NS 250 / 250 500 / 500 Inj 250 ML @ 250 mls/hr IV.SIG Q12H [facility] Rx#:[id number] Oral 360 / 360 Output: Urine 300 / 300 Other: # Voids 1 1 # Bowel Movements 1 Weight On Admission 44.906 kg Narrative: Right lower extremity examined, pedal pulses palpable sensation intact pain crepitus and instability of right hallux at the level of IPJ purulent fibrotic open draining wound with exposed probing bone Medications and Allergies Active Medications: Active Medications Acetaminophen (Tylenol) 650 mg PO Q4H PRN PRN Reason: Temp > 100.4 Hydrocodone Bitart/Acetaminophen ([place] 10/325) 1 tab PO Q4H PRN PRN Reason: PAIN SCALE 6 TO 10 Last Admin: 08/21/17 09:09 Dose: 1 tab Al Hydroxide/Mg Hydroxide (Milk Of Magnesia Liq) 30 ml PO Q12H PRN PRN Reason: Mild Constipation Bisacodyl (Dulcolax Supp) 10 mg RECTAL DAILY PRN PRN Reason: SEVERE CONSITIPATION Lactated Ringer's (Lr 1000 Ml Inj) 1,000 mls @ 70 mls/hr IV.CONT .[id number] [facility] Last Admin: 08/21/17 08:32 Dose: 70 mls/hr Cefepime HCl 2,000 mg/ Sodium (Chloride) 100 mls @ 200 mls/hr IV.SIG Q12H [facility] Last Admin: 08/21/17 09:10 Dose: 200 mls/hr Pharmacy Profile Note (Vancomycin Consult Pharmacy) 0 mls @ 0 mls/hr OTHER UNSCH [facility] Vancomycin HCl 1,000 mg/ (Sodium Chloride) 250 mls @ 250 mls/hr IV.SIG Q12H [facility] Last Infusion: 08/21/17 06:00 Dose: Infused Lactobacillus Acidophilus (Lactinex) 1 tab PO BID [facility] Last Admin: 08/21/17 09:10 Dose: 1 tab Lactulose (Lactulose Liq) 30 ml PO DAILY PRN PRN Reason: SEVERE CONSITIPATION Miscellaneous Information ([facility] Ordered Lab Info) 0 each OTHER ONCE ONE Stop: 08/22/17 04:46 Naloxone HCl (Narcan Inj) 0.4 mg IV.PUSH UNSCH PRN PRN Reason: SEE LABEL COMMENTS Nicotine (Habitrol 21 Mg Patch.24 Hr) 1 patch T-DERMAL DAILY [facility] Last Admin: 08/21/17 09:10 Dose: 1 patch Ondansetron HCl (Zofran Inj) 4 mg IV.PUSH Q6H PRN PRN Reason: NAUSEA OR VOMITING Oxycodone HCl (Roxicodone) 5 mg PO Q4H PRN PRN Reason: PAIN SCALE 3 TO 5 Last Admin: 08/20/17 22:28 Dose: 5 mg Senna/Docusate Sodium (Lori-Colace) 1 tab PO BID [facility] Last Admin: 08/21/17 09:10 Dose: 1 tab Sennosides (Senokot) 17.2 mg PO Q12H PRN PRN Reason: Moderate Constipation Temazepam (Restoril) 15 mg PO HS PRN PRN Reason: INSOMNIA Allergies Allergy/AdvReac Type Severity Reaction Status Date / Time *MDRO Multi-Drug Resistant AdvReac Unknown NONE Uncoded 08/20/17 10:09 Organism Home Medications Medication Instructions Recorded Confirmed Type No Known Home Medications 08/20/17 08/20/17 History Results - Labs CBC & Chem 7: 08/20/17 12:00 08/20/17 12:00 Laboratory Results - last 24 hr 08/20/17 08/20/17 08/20/17 12:00 12:00 12:00 WBC 9.3 RBC 4.05 Hgb 11.0 L Hct 33.3 L MCV 82.2 MCH 27.2 MCHC 33.0 RDW 14.9 Plt Count 670 H MPV 6.8 L Neut % (Auto) 83.6 H Lymph % (Auto) 11.4 [place] % (Auto) 4.4 Eos % (Auto) 0.4 Baso % (Auto) 0.2 Neut # (Auto) 7.8 H Lymph # (Auto) 1.1 [place] # (Auto) 0.4 Eos # (Auto) 0.0 Baso # (Auto) 0.0 WBC Differential . Differential Comment Auto diff final ESR PT 11.1 INR 1.1 APTT 30.8 H Sodium 141 Potassium 3.8 Chloride 105 Carbon Dioxide 26.4 Anion Gap 10 BUN 10 Creatinine 0.35 L Estimated GFR Greater than 89 Random Glucose 82 Lactic Acid Calcium 8.6 Total Bilirubin 0.3 AST 7 L ALT 12 Alkaline Phosphatase 93 C-Reactive Protein Total Protein 7.2 Albumin 2.7 L HIV 1&2 Ab/P24 Ag 4thGn 08/20/17 08/20/17 08/20/17 12:00 12:00 12:00 WBC RBC Hgb Hct MCV MCH MCHC RDW Plt Count MPV Neut % (Auto) Lymph % (Auto) [place] % (Auto) Eos % (Auto) Baso % (Auto) Neut # (Auto) Lymph # (Auto) [place] # (Auto) Eos # (Auto) Baso # (Auto) WBC Differential Differential Comment ESR 73 H PT INR APTT Sodium Potassium Chloride Carbon Dioxide Anion Gap BUN Creatinine Estimated GFR Random Glucose Lactic Acid 0.7 Calcium Total Bilirubin AST ALT Alkaline Phosphatase C-Reactive Protein 7.87 H Total Protein Albumin HIV 1&2 Ab/P24 Ag 4thGn 08/20/17 19:59 WBC RBC Hgb Hct MCV MCH MCHC RDW Plt Count MPV Neut % (Auto) Lymph % (Auto) [place] % (Auto) Eos % (Auto) Baso % (Auto) Neut # (Auto) Lymph # (Auto) [place] # (Auto) Eos # (Auto) Baso # (Auto) WBC Differential Differential Comment ESR PT INR APTT Sodium Potassium Chloride Carbon Dioxide Anion Gap BUN Creatinine Estimated GFR Random Glucose Lactic Acid Calcium Total Bilirubin AST ALT Alkaline Phosphatase C-Reactive Protein Total Protein Albumin HIV 1&2 Ab/P24 Ag 4thGn Nonreactive Assessment and Plan - Plan Continue IV antibiotics anticipate surgery early next week hallux amputation. The patient is having pain in her clavicle area I will leave this for medicine to evaluate and treat
--- NOTE | 2017-08-21 16:43 | US ---
EXAM DATE: 08/21/2017 4:16 PM EDT AGE/SEX: 32 years / Female INDICATIONS: Left chest wall abscess. CLINICAL DATA: This is the patient's initial encounter. Patient reports that signs and symptoms have been present for 3 days and indicates a pain score of 9/10. MEDICAL/SURGICAL HISTORY: . IVDU. Right Great Toe Osteomyelitis. None. COMPARISON: [facility] [place], POC ULTRASOUND VASCULAR ACCESS TEAM, 08/20/2017. . FINDINGS: There are phlegmonous changes involving the left chest wall but no discrete abscess is identified. Th e area of abnormality measures 4.7 x 2.4 cm. CONCLUSION: 1. Thickness changes involving the chest wall without evidence of drainable abscess. Electronically signed by: Gil Sanabria MD 08/21/2017 4:41 PM EDT
[2017-08-22] MEDS ORDERED: Pharmacy Ordered Lab Info OTHER ONE (04:45)
[2017-08-22 05:41] LABS: Baso # (Auto) 0.1 th/mm3 (0.0-0.2); Baso % (Auto) 1.1 % (0.0-2.0); Eos # (Auto) 0.2 th/mm3 (0.0-0.4); Eos % (Auto) 1.6 % (0.0-4.0); Hematocrit 30.4 % (35.0-46.0); Hemoglobin 10.1 gm/dL (11.6-15.3); Lymph # (Auto) 1.5 th/mm3 (1.0-4.8); Lymph % (Auto) 10.8 % (9.0-44.0); Mean Corpuscular HGB Conc 33.2 % (32.0-36.0); Mean Corpuscular Hemoglobin 27.1 pg (27.0-34.0); Mean Corpuscular Volume 81.8 fL (80.0-100.0); Mean Platelet Volume 7.1 fL (7.0-11.0); Mono % (Auto) 7.1 % (0.0-8.0); Neut # (Auto) 10.6 th/mm3 (1.8-7.7); Neut % (Auto) 79.4 % (16.0-70.0); Platelet Count 624 th/mm3 (150-450); Red Blood Count 3.72 mil/mm3 (4.00-5.30); Red Cell Distribution Width 15.4 % (11.6-17.2); White Blood Count 13.4 th/mm3 (4.0-11.0)
[2017-08-22] MEDS: Vancomycin Inj 1,000 MG in Sodium Chlor 0.9% Inj 250 ML IV.SIG SCH (05:44)
[2017-08-22 06:17] LABS: Alanine Aminotransferase 7 U/L (10-53); Alkaline Phosphatase 66 U/L (45-117); Anion Gap 12 meq/L (5-15); Aspartate Aminotransferase 16 U/L (15-37); Blood Urea Nitrogen 25 mg/dL (7-18); Calcium 8.6 mg/dL (8.5-10.1); Carbon Dioxide 22.9 meq/L (21.0-32.0); Chloride 107 meq/L (98-107); Glomerular Filtration Rate 16 mL/min (>89); Glucose,Random 87 mg/dL (74-106); Potassium 4.3 meq/L (3.5-5.1); Sodium 142 meq/L (136-145); Total Protein 5.9 g/dL (6.4-8.2)
[2017-08-22] MEDS: Senna/Docusate Sodium 8.6/50 MG Tablet PO SCH ×2 (08:50→21:45)
[2017-08-22] MEDS: Lactobacillus Acidophilus/L. Spores Tablet PO SCH ×2 (08:50→21:44)
--- NOTE | 2017-08-22 10:36 | P.PN ---
Subjective Interval history: Follow-up right great toe osteomyelitis/skin abscesses and cellulitis August 21, 2017-patient seen and examined, complains of left anterior chest pain at the site of sKIN: There is an indurated area in the. Afebrile. Case discussed with Dr. Lund, podiatry August 22, 2017-patient seen and examined, no change, afebrile, no acute event overnight Physical Exam Vital signs: Vital Signs 08/21/17 12:00 08/21/17 16:00 08/21/17 20:00 Temperature 97.9 F 98.6 F 98.1 F Pulse Rate 96 H 88 95 H Respiratory Rate 18 18 16 Blood Pressure 123/82 126/80 126/76 Pulse Oximetry 99 100 100 08/21/17 22:24 08/22/17 00:00 08/22/17 00:05 Temperature 98.3 F Pulse Rate 81 88 Respiratory Rate 18 16 Blood Pressure 106/63 Pulse Oximetry 100 08/22/17 04:00 08/22/17 05:44 08/22/17 08:00 Temperature 98.2 F 98 F Pulse Rate 82 81 Respiratory Rate 16 16 20 Blood Pressure 128/68 123/79 Pulse Oximetry 100 98 08/22/17 08:40 Temperature Pulse Rate 79 Respiratory Rate Blood Pressure Pulse Oximetry Intake & Output 08/21/17 08/22/17 08/22/17 18:59 06:59 18:59 Intake Total 1580 / 1580 1350 / 1350 1100 / 1100 Balance 1580 / 1580 1350 / 1350 1100 / 1100 Weight 44.2 kg Intake: IV 1100 / 1100 1350 / 1350 1100 / 1100 LR 1000 mL Inj 1,000 ML @ 70 1000 / 1000 1000 / 1000 1000 / 1000 mls/hr IV.CONT .[id number] [facility] Rx# :[id number] Maxipime Inj 2,000 MG In NS Inj 100 / 100 100 / 100 100 / 100 100 ML @ 200 mls/hr IV.SIG Q12H [facility] Rx#:[id number] Vancomycin Inj 1,000 MG In NS 250 / 250 Inj 250 ML @ 250 mls/hr IV.SIG Q12H [facility] Rx#:[id number] Oral 480 / 480 Other: # Voids 1 Date of Last Bowel Movement 08/21/17 08/21/17 08/22/17 # Bowel Movements 2 Narrative: GENERAL: NAD, A&O x 3 SKIN: Warm and dry. Multiple skin abscesses anterior left chest, bilateral upper extremities HEAD: Normocephalic. EYES: No scleral icterus. No injection or drainage. NECK: Supple, trachea midline. No JVD or lymphadenopathy. CARDIOVASCULAR: Tachy,regular rate and rhythm without murmurs, gallops, or rubs. RESPIRATORY: Breath sounds equal bilaterally. No accessory muscle use. GASTROINTESTINAL: Abdomen soft, non-tender, nondistended. MUSCULOSKELETAL: No cyanosis, or edema. BACK: Nontender without obvious deformity. No CVA tenderness. Results - Labs CBC & Chem 7: 08/22/17 05:15 08/22/17 05:15 Laboratory Results - last 24 hr 08/22/17 08/22/17 08/22/17 05:15 05:15 05:15 WBC 13.4 H RBC 3.72 L Hgb 10.1 L Hct 30.4 L MCV 81.8 MCH 27.1 MCHC 33.2 RDW 15.4 Plt Count 624 H MPV 7.1 Neut % (Auto) 79.4 H Lymph % (Auto) 10.8 [place] % (Auto) 7.1 Eos % (Auto) 1.6 Baso % (Auto) 1.1 Neut # (Auto) 10.6 H Lymph # (Auto) 1.5 [place] # (Auto) 1.0 H Eos # (Auto) 0.2 Baso # (Auto) 0.1 WBC Differential . Differential Comment Auto diff final Sodium 142 Potassium 4.3 Chloride 107 Carbon Dioxide 22.9 Anion Gap 12 BUN 25 H Creatinine 3.35 H Estimated GFR 16 L Random Glucose 87 Calcium 8.6 Total Bilirubin 0.3 AST 16 ALT 7 L Alkaline Phosphatase 66 Total Protein 5.9 L D Albumin 2.0 L D Vancomycin Trough 43.3 H Microbiology 08/20/17 12:00 Blood - Peripheral Aerobic Blood Culture - Preliminary No growth in 1 day 08/20/17 12:00 Blood - Peripheral Anaerobic Blood Culture - Preliminary No growth in 1 day 08/20/17 12:05 Blood - Peripheral Aerobic Blood Culture - Preliminary No growth in 1 day 08/20/17 12:05 Blood - Peripheral Anaerobic Blood Culture - Preliminary No growth in 1 day - Imaging Impressions Soft Tissue Ultrasound 08/21/17 00:00 CONCLUSION: 1. Thickness changes involving the chest wall without evidence of drainable abscess. Assessment and Plan - Assessment (1) Abscess of skin and subcutaneous tissue Code(s): L02.91 - Cutaneous abscess, unspecified Status: Acute (2) Acute osteomyelitis of toe Code(s): M86.179 - Other acute osteomyelitis, unspecified ankle and foot Status: Acute (3) Cellulitis Code(s): L03.90 - Cellulitis, unspecified Status: Acute (4) IVDU (intravenous drug user) Code(s): F19.90 - Other psychoactive substance use, unspecified, uncomplicated Status: Acute - Plan 32-year-old female with Right great toe osteomyelitis Status post vancomycin and Zosyn in ED 1, continue vancomycin and cefepime IV pending report Case discussed with podiatry 08/21/17 and appreciate input for evaluation for possible amputation infectious disease specialist ff Skin abscesses Anterior left chest abscess Cellulitis Soft tissue ultrasound noted without any evidence of drainable abscess Continue treatment with vancomycin and cefepime ID consultation appreciated Monitor culture report IVDU Strongly counseled against Consider 2D echo to rule out endocarditis HIV negative Tobacco abuse Tobacco counseling cessation provided Continue nicotine patch Acute renal failure Worsening creatinine since admission Increase IV fluid hydration rate Avoid all nephrotoxic drug Nephrology consultation as needed (2) Acute osteomyelitis of toe Qualifiers: Laterality: right Qualified Code(s): M86.171 - Other acute osteomyelitis, right ankle and foot (3) Cellulitis Qualifiers: Site of cellulitis: trunk Site of cellulitis of trunk: chest wall Qualified Code(s): L03.313 - Cellulitis of chest wall
--- NOTE | 2017-08-22 12:08 | P.PNPOD ---
Subjective Interval history: Pain of left upper clavicle and right lower extremity no events overnight Physical Exam Vital signs: Vital Signs 08/21/17 16:00 08/21/17 20:00 08/21/17 22:24 Temperature 98.6 F 98.1 F Pulse Rate 88 95 H Respiratory Rate 18 16 18 Blood Pressure 126/80 126/76 Pulse Oximetry 100 100 08/22/17 00:00 08/22/17 00:05 08/22/17 04:00 Temperature 98.3 F 98.2 F Pulse Rate 81 88 82 Respiratory Rate 16 16 Blood Pressure 106/63 128/68 Pulse Oximetry 100 100 08/22/17 05:44 08/22/17 08:00 08/22/17 08:40 Temperature 98 F Pulse Rate 81 79 Respiratory Rate 16 20 Blood Pressure 123/79 Pulse Oximetry 98 Intake & Output 08/21/17 08/22/17 08/22/17 18:59 06:59 18:59 Intake Total 1580 / 1580 1350 / 1350 1240 / 1240 Balance 1580 / 1580 1350 / 1350 1240 / 1240 Weight 44.2 kg Intake: IV 1100 / 1100 1350 / 1350 1240 / 1240 LR 1000 mL Inj 1,000 ML @ 70 1000 / 1000 1000 / 1000 1140 / 1140 mls/hr IV.CONT .[id number] [facility] Rx# :[id number] Maxipime Inj 2,000 MG In NS Inj 100 / 100 100 / 100 100 / 100 100 ML @ 200 mls/hr IV.SIG Q12H [facility] Rx#:[id number] Vancomycin Inj 1,000 MG In NS 250 / 250 Inj 250 ML @ 250 mls/hr IV.SIG Q12H [facility] Rx#:[id number] Oral 480 / 480 Other: # Voids 1 Date of Last Bowel Movement 08/21/17 08/21/17 08/22/17 # Bowel Movements 2 Narrative: Right lower extremity examined, pedal pulses palpable sensation intact pain crepitus and instability of right hallux at the level of IPJ purulent fibrotic open draining wound with exposed probing bone, unchanged Medications and Allergies Active Medications: Active Medications Acetaminophen (Tylenol) 650 mg PO Q4H PRN PRN Reason: Temp > 100.4 Hydrocodone Bitart/Acetaminophen ([place] 10/325) 1 tab PO Q4H PRN PRN Reason: PAIN SCALE 6 TO 10 Last Admin: 08/22/17 05:44 Dose: 1 tab Al Hydroxide/Mg Hydroxide (Milk Of Magnesia Liq) 30 ml PO Q12H PRN PRN Reason: Mild Constipation Bisacodyl (Dulcolax Supp) 10 mg RECTAL DAILY PRN PRN Reason: SEVERE CONSITIPATION Cefepime HCl 2,000 mg/ Sodium (Chloride) 100 mls @ 200 mls/hr IV.SIG Q12H [facility] Last Infusion: 08/22/17 09:30 Dose: Infused Pharmacy Profile Note (Vancomycin Consult Pharmacy) 0 mls @ 0 mls/hr OTHER UNSCH [facility] Vancomycin HCl 1,000 mg/ (Sodium Chloride) 250 mls @ 250 mls/hr IV.SIG Q12H [facility] Last Infusion: 08/22/17 09:49 Dose: 250 mls/hr Sodium Chloride (Ns Inj) 1,000 mls @ 100 mls/hr IV.CONT .Q10H [facility] Lactobacillus Acidophilus (Lactinex) 1 tab PO BID [facility] Last Admin: 08/22/17 08:50 Dose: 1 tab Lactulose (Lactulose Liq) 30 ml PO DAILY PRN PRN Reason: SEVERE CONSITIPATION Naloxone HCl (Narcan Inj) 0.4 mg IV.PUSH UNSCH PRN PRN Reason: SEE LABEL COMMENTS Nicotine (Habitrol 21 Mg Patch.24 Hr) 1 patch T-DERMAL DAILY [facility] Last Admin: 08/22/17 08:50 Dose: 1 patch Ondansetron HCl (Zofran Inj) 4 mg IV.PUSH Q6H PRN PRN Reason: NAUSEA OR VOMITING Oxycodone HCl (Roxicodone) 5 mg PO Q4H PRN PRN Reason: PAIN SCALE 3 TO 5 Last Admin: 08/22/17 08:51 Dose: 5 mg Senna/Docusate Sodium (Lori-Colace) 1 tab PO BID [facility] Last Admin: 08/22/17 08:50 Dose: 1 tab Sennosides (Senokot) 17.2 mg PO Q12H PRN PRN Reason: Moderate Constipation Temazepam (Restoril) 15 mg PO HS PRN PRN Reason: INSOMNIA Allergies Allergy/AdvReac Type Severity Reaction Status Date / Time *MDRO Multi-Drug Resistant AdvReac Unknown NONE Uncoded 08/20/17 10:09 Organism Home Medications Medication Instructions Recorded Confirmed Type No Known Home Medications 08/20/17 08/20/17 History Results - Labs CBC & Chem 7: 08/22/17 05:15 08/22/17 05:15 Laboratory Results - last 24 hr 08/22/17 08/22/17 08/22/17 05:15 05:15 05:15 WBC 13.4 H RBC 3.72 L Hgb 10.1 L Hct 30.4 L MCV 81.8 MCH 27.1 MCHC 33.2 RDW 15.4 Plt Count 624 H MPV 7.1 Neut % (Auto) 79.4 H Lymph % (Auto) 10.8 [place] % (Auto) 7.1 Eos % (Auto) 1.6 Baso % (Auto) 1.1 Neut # (Auto) 10.6 H Lymph # (Auto) 1.5 [place] # (Auto) 1.0 H Eos # (Auto) 0.2 Baso # (Auto) 0.1 WBC Differential . Differential Comment Auto diff final Sodium 142 Potassium 4.3 Chloride 107 Carbon Dioxide 22.9 Anion Gap 12 BUN 25 H Creatinine 3.35 H Estimated GFR 16 L Random Glucose 87 Calcium 8.6 Total Bilirubin 0.3 AST 16 ALT 7 L Alkaline Phosphatase 66 Total Protein 5.9 L D Albumin 2.0 L D Vancomycin Trough 43.3 H Microbiology 08/20/17 12:00 Blood - Peripheral Aerobic Blood Culture - Preliminary No growth in 2 days 08/20/17 12:00 Blood - Peripheral Anaerobic Blood Culture - Preliminary No growth in 2 days 08/20/17 12:05 Blood - Peripheral Aerobic Blood Culture - Preliminary No growth in 2 days 08/20/17 12:05 Blood - Peripheral Anaerobic Blood Culture - Preliminary No growth in 2 days - Imaging Impressions Soft Tissue Ultrasound 08/21/17 00:00 CONCLUSION: 1. Thickness changes involving the chest wall without evidence of drainable abscess. Assessment and Plan - Assessment (1) Acute osteomyelitis of toe Code(s): M86.179 - Other acute osteomyelitis, unspecified ankle and foot Status: Acute (2) Cellulitis Code(s): L03.90 - Cellulitis, unspecified Status: Acute (3) Abscess of skin and subcutaneous tissue Code(s): L02.91 - Cutaneous abscess, unspecified Status: Acute - Plan Continue IV antibiotics anticipate surgery Wednesday 3 PM for right hallux amputation. I had a long discussion with the patient regarding risks and benefits of the surgery. The patient understood poor compliance will likely lead to more foot surgery possibly loss of limb. The patient understood and consented to surgical intervention to eradicate infection and found to be compliant with postoperative instructions. The patient is homeless. She will likely need to stay in the hospital or transfer to senior living facility in order to heal, minimum 10 days (1) Acute osteomyelitis of toe Qualifiers: Laterality: right Qualified Code(s): M86.171 - Other acute osteomyelitis, right ankle and foot (2) Cellulitis Qualifiers: Site of cellulitis: trunk Site of cellulitis of trunk: chest wall Qualified Code(s): L03.313 - Cellulitis of chest wall
[2017-08-22] MEDS: Sod Chloride 0.9% Inj 1,000 ML IV.CONT SCH ×2 (12:14→22:45)
--- NOTE | 2017-08-22 12:38 | P.DIET ---
Nutritional Evaluation Type of nutrition evaluation: initial Nutrition screening: Weight Loss > 10 lbs Objective - Diagnosis Cellulitis, Osteomyelitis R Great Toe - Objective % IBW: 102 Body Weight Used for Calculations: Actual (44.9kg) Energy Needs - Lower Range (kCal/kg): 40 Energy Needs - Upper Range (kCal/kg): 45 Lower Limit kCal/kg (kCals): 1,796 Upper Limit kCal/kg (kCals): 2,021 Lower Limit Protein Factor (Grams per Kg): 1 Upper Limit Protein Factor (Grams per Kg): 1.2 Lower Protein Needs (Protein): 45 Upper Protein Needs (Protein): 54 Fluid Factor (ml/kg): 35 Estimated Fluid Needs (ml): 1,572 Dietitian Reviewed in Medical Record: Current diet, Curent medications, Intake & Output, Labs, Medical history, Wound/DTI Objective Comments: PMH: IVDU, tobacco abuse Meds include: Lactinex, Vancomycin Labs include: WBC 13.4, BUN 25, Cr 3.35, GFR 16 +2 BM's Assessment Assessment: Pt at nutritional risk r/t dx, reported recent unintentional wt loss. Pt is homeless and an active IVDU/smoker. Pt admitted for cellulitis, osteomyelitis. Reviewed podiatry notes, plan for R great toe amputation 08/23. Pt's nutritional needs as assessed above. Will monitor clinical course, advancement of diet after surgery and po intake. Recommendations: Pt NPO for surgery tomorrow Dietitian to Monitor: Intake & Output, Diet tolerance, Weight change, PO Intake , Diet advancement, Medical course
[2017-08-22 17:27] LABS: Amphetamine Screen,Urine Neg (Neg); Barbiturate Screen,Urine Neg (Neg); Cannabinoid Screen,Urine Neg (Neg); Cocaine Screen,Urine Pos (Neg)
[2017-08-22 17:38] LABS: Opiate Screen,Urine Pos (Neg)
[2017-08-22] MEDS ORDERED: Chlorhexidine Gluconate 2% 1 Pack (2 Cloths) TOPICAL SCH (19:15)
[2017-08-22] MEDS ORDERED: Sodium Chlor 0.9% Inj 500 ML IV.SIG SCH (20:00)
[2017-08-23] MEDS: Temazepam 15 MG Capsule PO PRN (01:56)
[2017-08-23] MEDS: Lactobacillus Acidophilus/L. Spores Tablet PO SCH ×2 (08:26→20:09)
[2017-08-23] MEDS: Senna/Docusate Sodium 8.6/50 MG Tablet PO SCH ×2 (08:28→20:10)
[2017-08-23] MEDS: Sod Chloride 0.9% Inj 1,000 ML IV.CONT SCH ×2 (09:52→20:10)
[2017-08-23 10:46] LABS: Baso % (Auto) 0.3 % (0.0-2.0); Eos # (Auto) 0.2 th/mm3 (0.0-0.4); Eos % (Auto) 1.6 % (0.0-4.0); Hematocrit 27.5 % (35.0-46.0); Hemoglobin 9.1 gm/dL (11.6-15.3); Lymph # (Auto) 1.5 th/mm3 (1.0-4.8); Lymph % (Auto) 14.5 % (9.0-44.0); Mean Corpuscular HGB Conc 33.1 % (32.0-36.0); Mean Corpuscular Hemoglobin 27.3 pg (27.0-34.0); Mean Corpuscular Volume 82.3 fL (80.0-100.0); Mean Platelet Volume 7.1 fL (7.0-11.0); Mono # (Auto) 0.8 th/mm3 (0.0-0.9); Mono % (Auto) 7.5 % (0.0-8.0); Neut # (Auto) 7.8 th/mm3 (1.8-7.7); Neut % (Auto) 76.1 % (16.0-70.0); Platelet Count 530 th/mm3 (150-450); Red Blood Count 3.35 mil/mm3 (4.00-5.30); Red Cell Distribution Width 15.5 % (11.6-17.2); White Blood Count 10.2 th/mm3 (4.0-11.0)
--- NOTE | 2017-08-23 11:07 | P.PNIM ---
Subjective Interval history: Complaint of toe pain. Ready for surgery today. Physical Exam Vital signs: Vital Signs 08/22/17 12:00 08/22/17 12:27 08/22/17 16:00 Temperature 98.3 F 98.6 F Pulse Rate 84 86 80 Respiratory Rate 20 20 Blood Pressure 173/81 H 118/80 Pulse Oximetry 100 100 08/22/17 18:54 08/22/17 19:40 08/22/17 20:00 Temperature 98.4 F Pulse Rate 91 H 87 Respiratory Rate 8 L 16 Blood Pressure 110/64 Pulse Oximetry 98 08/22/17 21:44 08/22/17 23:40 08/23/17 00:00 Temperature 98.2 F Pulse Rate 91 H 90 Respiratory Rate 10 L 20 Blood Pressure 105/67 Pulse Oximetry 98 08/23/17 01:55 08/23/17 04:00 08/23/17 08:00 Temperature 98.0 F 97.7 F Pulse Rate 79 83 Respiratory Rate 10 L 20 20 Blood Pressure 131/67 120/84 Pulse Oximetry 93 L 99 Intake & Output 08/22/17 08/23/17 08/23/17 18:59 06:59 18:59 Intake Total 1720 / 1720 1100 / 1100 1000 / 1000 Output Total 2 / 2 Balance 1720 / 1720 1098 / 1098 1000 / 1000 Weight 43.8 kg Intake: IV 1240 / 1240 1100 / 1100 1000 / 1000 LR 1000 mL Inj 1,000 ML @ 70 1140 / 1140 mls/hr IV.CONT .[id number] [facility] Rx# :[id number] NS Inj 1,000 ML @ 100 mls/hr IV 1000 / 1000 1000 / 1000 .CONT .Q10H [facility] Rx#:[id number] Maxipime Inj 2,000 MG In NS Inj 100 / 100 100 / 100 100 ML @ 200 mls/hr IV.SIG Q12H [facility] Rx#:[id number] Oral 480 / 480 0 / 0 Output: Urine 2 / 2 Other: # Voids 1 Date of Last Bowel Movement 08/22/17 # Bowel Movements 1 0 Narrative: GENERAL: This is a well-nourished, well-developed patient, in no apparent distress. CARDIOVASCULAR: Regular rate and rhythm RESPIRATORY: Clear to auscultation. Breath sounds equal bilaterally. No wheezes , rales, or rhonchi. GASTROINTESTINAL: Abdomen soft, non-tender, nondistended. Normal active bowel sounds MUSCULOSKELETAL: Right great toe still swollen with excoriating skin changes with no active drainage NEURO: Alert & Oriented x4 to person, place, time, situation. Moves all ext x4 Results - Labs CBC & Chem 7: 08/23/17 09:00 08/22/17 05:15 Laboratory Results - last 24 hr 08/22/17 08/23/17 16:55 09:00 WBC 10.2 RBC 3.35 L Hgb 9.1 L Hct 27.5 L MCV 82.3 MCH 27.3 MCHC 33.1 RDW 15.5 Plt Count 530 H MPV 7.1 Neut % (Auto) 76.1 H Lymph % (Auto) 14.5 [place] % (Auto) 7.5 Eos % (Auto) 1.6 Baso % (Auto) 0.3 Neut # (Auto) 7.8 H Lymph # (Auto) 1.5 [place] # (Auto) 0.8 Eos # (Auto) 0.2 Baso # (Auto) 0.0 WBC Differential . Differential Comment Auto diff final Urine Opiates Screen Pos H Ur Barbiturates Screen Neg Ur Amphetamines Screen Neg U Benzodiazepines Scrn Neg Urine Cocaine Screen Pos H U Cannabinoids Screen Neg Microbiology 08/20/17 12:00 Blood - Peripheral Aerobic Blood Culture - Preliminary No growth in 2 days 08/20/17 12:00 Blood - Peripheral Anaerobic Blood Culture - Preliminary No growth in 2 days 08/20/17 12:05 Blood - Peripheral Aerobic Blood Culture - Preliminary No growth in 2 days 08/20/17 12:05 Blood - Peripheral Anaerobic Blood Culture - Preliminary No growth in 2 days Assessment and Plan - Assessment (1) Abscess of skin and subcutaneous tissue Code(s): L02.91 - Cutaneous abscess, unspecified Status: Acute (2) Acute osteomyelitis of toe Code(s): M86.179 - Other acute osteomyelitis, unspecified ankle and foot Status: Acute (3) Cellulitis Code(s): L03.90 - Cellulitis, unspecified Status: Acute (4) IVDU (intravenous drug user) Code(s): F19.90 - Other psychoactive substance use, unspecified, uncomplicated Status: Acute - Plan 32-year-old female with Right great toe osteomyelitis Status post vancomycin and Zosyn in ED 1, continue vancomycin and cefepime IV Case discussed with podiatry 08/21/17 and appreciate input for evaluation for possible amputation infectious disease specialist following For right great toe amputation today and will need wound care and postop care for 10 days post surgery for wound to heal./ Skin abscesses Anterior left chest abscess Cellulitis Soft tissue ultrasound noted without any evidence of drainable abscess Continue treatment with vancomycin and cefepime ID consultation appreciated Monitor culture report IVDU Cessation counseling HIV negative Tobacco abuse Tobacco counseling cessation provided Continue nicotine patch Acute renal failure may be due to vancomycin will discontinue antibiotic Worsening creatinine since admission Increase IV fluid hydration rate Avoid all nephrotoxic drug Nephrology consultation to be placed today Obtain renal ultrasound. DVT prophylaxis hold anticoagulation for surgical intervention today.- (2) Acute osteomyelitis of toe Qualifiers: Laterality: right Qualified Code(s): M86.171 - Other acute osteomyelitis, right ankle and foot (3) Cellulitis Qualifiers: Site of cellulitis: trunk Site of cellulitis of trunk: chest wall Qualified Code(s): L03.313 - Cellulitis of chest wall
[2017-08-23 11:12] LABS: Alanine Aminotransferase 8 U/L (10-53); Anion Gap 12 meq/L (5-15); Aspartate Aminotransferase 11 U/L (15-37); Blood Urea Nitrogen 31 mg/dL (7-18); Calcium 8.1 mg/dL (8.5-10.1); Carbon Dioxide 19.5 meq/L (21.0-32.0); Chloride 113 meq/L (98-107); Glomerular Filtration Rate 13 mL/min (>89); Glucose,Random 96 mg/dL (74-106); Potassium 4.3 meq/L (3.5-5.1); Sodium 144 meq/L (136-145)
[2017-08-23 11:15] LABS: Alkaline Phosphatase 62 U/L (45-117); Vancomycin,Random 33.6 Comment
[2017-08-23] MEDS ORDERED: Phenylephrine/NS 1000 MCG/10ML Syringe IV.PUSH ONE (12:00)
[2017-08-23] MEDS ORDERED: Lidocaine PF 1% Inj 5 ML Syringe INFILTRATN ONE (12:00)
--- NOTE | 2017-08-23 12:38 | P.CONNP ---
History of Present Illness Service: Nephrology Consult date: 08/23/17 Requesting Physician: Brionna Beck Reason for Consult: Acute Renal Failure Primary Care Provider: No Primary Care Physician Family Provider: No Primary Care Physician Chief Complaint: Right great toe pain and multiple skin abscesses History of Present Illness: This is a 32 y/o female who came in for left foot blisters and pain. She is homeless, admits to [facility] that she injects heroin mostly in her left arm. She was admitted in July for osteomyelitis, was on IV vancomycin and cefepime, however signed out AMA. She was readmitted for same issue. Her renal function was normal on the (creatinine 0.35). On the it increased to 3.35, and is 3.98 today. She reports making urine. Since her admission (on 08/20), she was given one gram of Vancomycin on the and again on the . Her vancomycin trough on the was 43. She is NPO for right great toe amputation today, and is on 0.9% NS. We were consulted to assist with management. Review of Systems Cardiovascular: Denies chest pain Respiratory: Denies shortness of breath Gastrointestinal: Denies abdominal pain, Denies vomiting Musculoskeletal: Reports joint swelling, Denies abnormal walking Skin/Breast: Reports skin ulcer Comments: right great toe Neurologic: Denies abnormal hearing, Denies tingling/numbness/burning sensations PMFSH - History History Provided By: Patient - Medical History Medical History: Medical History (Last Updated 08/23/17 @ 12:36 by HARDEEP Alvarez) Osteomyelitis - Tobacco History Second Hand Smoke Exposure: Yes Tobacco Use In Past 30 Days: Yes Smoking Status: Current every day smoker Tobacco Type: Cigarettes - Alcohol History How Often Do You Have a Drink Containing Alcohol: Never - Substance Use History Substance History: Active Abuse - Substance Use Type Crack/Cocaine Status: Active Route Used: Intravenously Heroin Status: Active Route Used: Intravenously - Travel History Recent Travel in the [place] Within the Last 8 Weeks: No Recent Travel Out of the Country Within the Last 8 Weeks: No - Immunization History Tetanus Immunization: <5 Years Medications and Allergies Active Medications: Active Medications Acetaminophen (Tylenol) 650 mg PO Q4H PRN PRN Reason: Temp > 100.4 Hydrocodone Bitart/Acetaminophen ([place] 10/325) 1 tab PO Q4H PRN PRN Reason: PAIN SCALE 6 TO 10 Last Admin: 08/23/17 08:26 Dose: 1 tab Al Hydroxide/Mg Hydroxide (Milk Of Magnesia Liq) 30 ml PO Q12H PRN PRN Reason: Mild Constipation Bisacodyl (Dulcolax Supp) 10 mg RECTAL DAILY PRN PRN Reason: SEVERE CONSITIPATION Chlorhexidine Gluconate (Chlorhexidine 2% Cloth) 3 pack [employer] [facility] Stop: 08/25/17 19:13 Cefepime HCl 2,000 mg/ Sodium (Chloride) 100 mls @ 200 mls/hr IV.SIG Q12H [facility] Last Admin: 08/23/17 08:27 Dose: 200 mls/hr Pharmacy Profile Note (Vancomycin Consult Pharmacy) 0 mls @ 0 mls/hr OTHER UNSCH [facility] Sodium Chloride (Ns Inj) 1,000 mls @ 100 mls/hr IV.CONT .Q10H [facility] Last Admin: 08/23/17 09:52 Dose: 100 mls/hr Sodium Chloride (Ns Inj) 500 mls @ 30 mls/hr IV.SIG .Q10H [facility] Stop: 08/25/17 19:13 Lactated Ringer's (Lr 1000 Ml Inj) 1,000 mls @ 30 mls/hr IV.SIG .Q24H [facility] Stop: 08/25/17 19:13 Lactobacillus Acidophilus (Lactinex) 1 tab PO BID [facility] Last Admin: 08/23/17 08:26 Dose: 1 tab Lactulose (Lactulose Liq) 30 ml PO DAILY PRN PRN Reason: SEVERE CONSITIPATION Naloxone HCl (Narcan Inj) 0.4 mg IV.PUSH UNSCH PRN PRN Reason: SEE LABEL COMMENTS Nicotine (Habitrol 21 Mg Patch.24 Hr) 1 patch T-DERMAL DAILY [facility] Last Admin: 08/23/17 08:27 Dose: 1 patch Ondansetron HCl (Zofran Inj) 4 mg IV.PUSH Q6H PRN PRN Reason: NAUSEA OR VOMITING Last Admin: 08/23/17 08:26 Dose: 4 mg Oxycodone HCl (Roxicodone) 5 mg PO Q4H PRN PRN Reason: PAIN SCALE 3 TO 5 Last Admin: 08/22/17 08:51 Dose: 5 mg Povidone Iodine (Betadine 5% Antisepsis Kit) 1 applicatio EACH [employer] [facility] Stop: 08/25/17 19:13 Senna/Docusate Sodium (Lori-Colace) 1 tab PO BID [facility] Last Admin: 08/23/17 08:28 Dose: Not Given Sennosides (Senokot) 17.2 mg PO Q12H PRN PRN Reason: Moderate Constipation Temazepam (Restoril) 15 mg PO HS PRN PRN Reason: INSOMNIA Last Admin: 08/23/17 01:56 Dose: 15 mg Allergies Allergy/AdvReac Type Severity Reaction Status Date / Time *MDRO Multi-Drug Resistant AdvReac Unknown NONE Uncoded 08/20/17 10:09 Organism Home Medications Medication Instructions Recorded Confirmed Type No Known Home Medications 08/20/17 08/20/17 History Exam Vital signs: Vital Signs 08/22/17 16:00 08/22/17 18:54 08/22/17 19:40 Temperature 98.6 F Pulse Rate 80 91 H Respiratory Rate 20 8 L Blood Pressure 118/80 Pulse Oximetry 100 08/22/17 20:00 08/22/17 21:44 08/22/17 23:40 Temperature 98.4 F Pulse Rate 87 91 H Respiratory Rate 16 10 L Blood Pressure 110/64 Pulse Oximetry 98 08/23/17 00:00 08/23/17 01:55 08/23/17 04:00 Temperature 98.2 F 98.0 F Pulse Rate 90 79 Respiratory Rate 20 10 L 20 Blood Pressure 105/67 131/67 Pulse Oximetry 98 93 L 08/23/17 08:00 Temperature 97.7 F Pulse Rate 83 Respiratory Rate 12 Blood Pressure 120/84 Pulse Oximetry 99 Intake & Output 08/22/17 08/23/17 08/23/17 18:59 06:59 18:59 Intake Total 1720 / 1720 1100 / 1100 1000 / 1000 Output Total 2 / 2 Balance 1720 / 1720 1098 / 1098 1000 / 1000 Weight 43.8 kg Intake: IV 1240 / 1240 1100 / 1100 1000 / 1000 LR 1000 mL Inj 1,000 ML @ 70 1140 / 1140 mls/hr IV.CONT .[id number] [facility] Rx# :[id number] NS Inj 1,000 ML @ 100 mls/hr IV 1000 / 1000 1000 / 1000 .CONT .Q10H [facility] Rx#:[id number] Maxipime Inj 2,000 MG In NS Inj 100 / 100 100 / 100 100 ML @ 200 mls/hr IV.SIG Q12H [facility] Rx#:[id number] Oral 480 / 480 0 / 0 Output: Urine 2 / 2 Other: # Voids 1 Date of Last Bowel Movement 08/22/17 # Bowel Movements 1 0 - Constitutional no acute distress, average body habitus, disheveled Comments: sleeping - Routine HEENT Exam Head: Present: normocephalic Eye: Present: EOMI - Routine Neck Exam Present: supple, full ROM - Routine Chest/Breast/Axilla Exam Chest wall: Present: tenderness - Routine Respiratory Exam Present: CTA bilaterally. Absent: accessory muscle use - Routine Cardiovascular Exam Present: RRR, S1, S2 - Routine Abdominal Exam Present: soft, normoactive bowel sounds. Absent: tenderness, distended - Routine Skin Exam Present: wounds Comments: right great toe, bandage in place - Routine Neurological Exam Present: alert, oriented X3 Results - Lab Results 08/23/17 09:00 08/23/17 09:00 Most recent lab results Calcium 8.1 mg/dL (8.5-10.1) L 08/23/17 09:00 - Image Kidney/bladder ultrasound: pending Assessment and Plan - Assessment (1) Acute renal failure Code(s): N17.9 - Acute kidney failure, unspecified Status: Acute Plan: Normal renal function at baseline. JOSH most likely due to Vancomycin induced nephrotoxicity. It was stopped. Obtain Renal US Obtain UA PO fluids encouraged. Repeat labs daily. Expect improvement. On IVF currently, 0.9% NS. Taper off over next day to two if intake is adequate. Avoid other nephrotoxic agents. (2) Acute osteomyelitis of toe Code(s): M86.179 - Other acute osteomyelitis, unspecified ankle and foot Status: Acute Plan: Podiatry following To have R great toe amputation today Antibiotics include cefepime (3) IVDU (intravenous drug user) Code(s): F19.90 - Other psychoactive substance use, unspecified, uncomplicated Status: Acute Plan: Advised cessation. Minimize narcotic exposure. - Plan Code Status: Full (2) Acute osteomyelitis of toe Qualifiers: Laterality: right Qualified Code(s): M86.171 - Other acute osteomyelitis, right ankle and foot
[2017-08-23] MEDS ORDERED: Bupivacaine PF 0.25% Inj 30 ML Vial ONE (13:45)
--- NOTE | 2017-08-23 17:19 | P.BOP ---
- Preoperative Diagnosis (1) Acute osteomyelitis of toe - Postoperative Diagnosis (1) Acute osteomyelitis of toe Date of procedure: 08/23/17 Procedure: Right hallux, great toe amputation Anesthesia: GETA, local Surgeon: Too Aguilera DPM Estimated blood loss (mL): 10 (mL) Tourniquet time (min): 25 (250mmhg right calf) IV fluids (mL): 500 (mL crystalloid) Pathology: other (Right hallux for path, amp margin Cx for C and S) Condition: stable Disposition: floor
[2017-08-23] MEDS ORDERED: *Meperidine Inj 25 MG/ML Vial PERIprocedural Use ONLY ONE (17:25)
[2017-08-23] MEDS ORDERED: fentaNYL Citrate Inj 100 MCG/2 ML Ampul ONE (17:27)
--- NOTE | 2017-08-23 17:34 | MP ---
cc: Too Piña DPM DATE OF OPERATION: 08/23/2017 PREOPERATIVE DIAGNOSIS: Right hallux osteomyelitis with ulcer. POSTOPERATIVE DIAGNOSIS: Right hallux osteomyelitis with ulcer. PROCEDURE PERFORMED: Right hallux amputation. ANESTHESIA: General, local 20 mL of 0.25% Marcaine plain. ESTIMATED BLOOD LOSS: Less than 10 mL. TOURNIQUET TIME: 25 minutes at a setting at 250 mmHg about the patient's right calf. PATHOLOGY: Right hallux for pathological analysis, amputation, margin culture swab for C and S. DISPOSITION: Return to floor. Continue IV antibiotics. Monitor kidney function. JUSTIFICATION OF PROCEDURE: A 32-year-old female. We have attempted digit salvage with debridement. The patient left AMA. The patient has worsening osteomyelitis, crepitus and now a significant deterioration of the hallux. We devised a plan to move forward of hallux amputation. The patient was educated on risks and benefits including but not limited to need for more surgery, possible spread of infection to the first metatarsal, to the foot, to the ankle, to the distal leg if she continues to be not compliant. No guarantees given or implied regarding the outcome. PROCEDURE IN DETAIL: Under mild sedation, the patient was brought into the operating room, placed on the operating table in supine position. Following the induction of general anesthesia, local anesthesia was obtained about the proximal foot providing distal anesthesia to the hallux. The patient's right foot was then scrubbed, prepped and draped in the usual aseptic fashion. The foot was elevated and exsanguinated and the previously placed mid-calf tourniquet inflated to 250 mmHg. The digit was inspected. There was noted to be crepitus, stability, purulence, fluctuance and exposed bone of the proximal phalanx. A fishmouth type incision was made where there appeared to be clean skin at the proximal aspect of the hallux. Sharp disarticulation of the digit took place. There was noted to be a hard first MPJ cortical margin without any signs of abscess or inflammation or infection at this area. Deep culture was taken. It was flushed with copious amounts of normal saline. Bovie and ligation took place of neurovascular structures. Deep dermis and capsule was closed utilizing Vicryl. Skin was closed utilizing nylon. Upon releasing the tourniquet, there was a prompt hyperemic response to digits 2, 3, 4 and 5, no excessive bleeding. A bulky bandage was applied. The patient was transferred from OR to PACU with all vital signs stable. She is to heel transfer weight-bear only. The patient is homeless. It is probably in the best interest of the patient to stay in the hospital at least until the wound heals or at least find a senior care facility to prevent dehiscence and hopefully prevent spread of osteomyelitis to the first metatarsal head. NANCY Cardenas/LEXUS , 05:18 PM , 05:32 PM
--- NOTE | 2017-08-23 17:35 | ECG ---
Date Performed: 08/22/2017 Time Performed: 18:20:18 PTAGE: 32 years EKG: Sinus rhythm NORMAL ECG PREVIOUS TRACING : 08/13/2016 04.38 Since the previous tracing, no significant change noted DOCTOR: Neal Bernal Interpretating Date/Time 08/23/2017 17:34:49
[2017-08-23] MEDS ORDERED: *morphine SULFATE 10 MG/ML PERIprocedure ONLY ONE (17:42)
--- NOTE | 2017-08-23 22:41 | US ---
EXAM DATE: 08/23/2017 10:27 PM EDT AGE/SEX: 32 years / Female INDICATIONS: Increased lab values. CLINICAL DATA: This is the patient's initial encounter. Patient reports that signs and symptoms have been present for 1 day and indicates a pain score of 10/10. MEDICAL/SURGICAL HISTORY: . Osteomyelitis. IV drug user. . [place] [facility] [place] 09/11/2015. . MEASUREMENTS: Right Kidney:__12.9 x 5.3 x 6.2 cm Left Kidney:__12.7 x 4.8 x 6.5 cm FINDINGS: Right Kidney: Normal echotexture and cortical thickness. No mass or hydronephrosis. Left Kidney: Normal echotexture and cortical thickness. No mass or hydronephrosis. Bladder: Mildly distended; smooth margins. Other: None. CONCLUSION: 1. Negative renal sonogram. Electronically signed by: Jaswinder Mckeon MD 08/23/2017 10:39 PM EDT
[2017-08-24] MEDS: Temazepam 15 MG Capsule PO PRN ×2 (00:36→22:40)
[2017-08-24] MEDS: Sod Chloride 0.9% Inj 1,000 ML IV.CONT SCH ×2 (04:25→13:11)
[2017-08-24] MEDS: Lactobacillus Acidophilus/L. Spores Tablet PO SCH ×2 (08:40→22:26)
[2017-08-24] MEDS: Senna/Docusate Sodium 8.6/50 MG Tablet PO SCH ×2 (08:40→22:30)
[2017-08-24 08:50] LABS: Calcium 8.1 mg/dL (8.5-10.1); Carbon Dioxide 19.6 meq/L (21.0-32.0); Potassium 5.4 meq/L (3.5-5.1)
[2017-08-24] MEDS ORDERED: Sodium Polystyrene Sulfonate/Sorbitol Liq 15 GM/60 ML UDC PO ONE (10:13)
[2017-08-24] MEDS ORDERED: DEXTROSE IV.SIG ONE ×2 (10:13→11:00)
[2017-08-24] MEDS ORDERED: SODIUM BICARB IV.SIG ONE (10:13)
[2017-08-24] MEDS ORDERED: NACL 0.45% IV.SIG ONE ×2 (10:13→11:00)
--- NOTE | 2017-08-24 10:17 | P.PNIM ---
Subjective Interval history: States that she is still in a lot of pain and wants to change her pain medication. Physical Exam Vital signs: Vital Signs 08/23/17 12:00 08/23/17 15:50 08/23/17 17:22 Temperature 98.1 F 98.5 F Pulse Rate 81 78 86 Respiratory Rate 20 20 Blood Pressure 113/75 106/68 Pulse Oximetry 98 99 08/23/17 17:30 08/23/17 17:45 08/23/17 18:00 Temperature Pulse Rate 80 75 75 Respiratory Rate 18 17 17 Blood Pressure 114/76 104/71 108/77 Pulse Oximetry 99 98 99 08/23/17 18:15 08/23/17 20:00 08/23/17 20:04 Temperature 98.6 F 97.8 F Pulse Rate 78 85 89 Respiratory Rate 16 18 Blood Pressure 107/73 121/65 Pulse Oximetry 99 97 08/24/17 00:00 08/24/17 04:00 08/24/17 04:03 Temperature 97.5 F L 97.5 F L Pulse Rate 72 69 67 Respiratory Rate 20 20 Blood Pressure 123/59 L 96/66 L Pulse Oximetry 97 94 L Intake & Output 08/23/17 08/24/17 08/24/17 18:59 06:59 18:59 Intake Total 1500 / 1500 2297 / 2297 Output Total 1400 / 1400 Balance 1490 / 1490 897 / 897 Weight 47.9 kg Intake: IV 1000 / 1000 1876 / 187 NS Inj 1,000 ML @ 100 mls/hr IV 1000 / 1000 1876 187 .CONT .Q10H [facility] Rx#:[id number] Oral 0 / 0 420 / 420 Anesthesia Amount 500 / 500 Output: Urine 1400 / 1400 Estimated Blood Loss Other: # Voids 1 # Bowel Movements 0 2 Narrative: GENERAL: This is a well-nourished, well-developed patient, in no apparent distress, tearful. CARDIOVASCULAR: Regular rate and rhythm RESPIRATORY: Clear to auscultation. Breath sounds equal bilaterally. No wheezes , rales, or rhonchi. GASTROINTESTINAL: Abdomen soft, non-tender, nondistended. Normal active bowel sounds MUSCULOSKELETAL: Bandage on right foot clean dry and intact wrapped in Nael bandage NEURO: Alert & Oriented x4 to person, place, time, situation. Moves all ext x4 Results - Labs CBC & Chem 7: 08/23/17 09:00 08/24/17 07:17 Laboratory Results - last 24 hr 08/23/17 08/23/17 08/24/17 09:00 09:00 07:17 WBC 10.2 RBC 3.35 L Hgb 9.1 L Hct 27.5 L MCV 82.3 MCH 27.3 MCHC 33.1 RDW 15.5 Plt Count 530 H MPV 7.1 Neut % (Auto) 76.1 H Lymph % (Auto) 14.5 [place] % (Auto) 7.5 Eos % (Auto) 1.6 Baso % (Auto) 0.3 Neut # (Auto) 7.8 H Lymph # (Auto) 1.5 [place] # (Auto) 0.8 Eos # (Auto) 0.2 Baso # (Auto) 0.0 WBC Differential . Differential Comment Auto diff final Sodium 144 141 Potassium 4.3 5.4 H D Chloride 113 H 112 H Carbon Dioxide 19.5 L 19.6 L Anion Gap 12 9 BUN 31 H 33 H Creatinine 3.98 H 3.36 H Estimated GFR 13 L 16 L Random Glucose 96 75 Calcium 8.1 L 8.1 L Total Bilirubin 0.2 AST 11 L ALT 8 L Alkaline Phosphatase 62 Total Protein 6.0 L Albumin 2.0 L Random Vancomycin 33.6 Microbiology 08/23/17 16:55 Other Fungal Smear - Final No fungal elements seen 08/23/17 16:55 Wound - Foot Gram Stain - Final 08/20/17 12:00 Blood - Peripheral Aerobic Blood Culture - Preliminary No growth in 3 days 08/20/17 12:00 Blood - Peripheral Anaerobic Blood Culture - Preliminary No growth in 3 days 08/20/17 12:05 Blood - Peripheral Aerobic Blood Culture - Preliminary No growth in 3 days 08/20/17 12:05 Blood - Peripheral Anaerobic Blood Culture - Preliminary No growth in 3 days - Imaging Impressions Abdomen/Bladder Ultrasound 08/23/17 00:00 CONCLUSION: 1. Negative renal sonogram. - Procedures 08/23 right great toe hallux amputation with Dr. Too Piña Assessment and Plan - Assessment (1) Acute osteomyelitis of toe Code(s): M86.179 - Other acute osteomyelitis, unspecified ankle and foot Status: Acute (2) Abscess of skin and subcutaneous tissue Code(s): L02.91 - Cutaneous abscess, unspecified Status: Acute (3) Cellulitis Code(s): L03.90 - Cellulitis, unspecified Status: Acute (4) IVDU (intravenous drug user) Code(s): F19.90 - Other psychoactive substance use, unspecified, uncomplicated Status: Acute - Plan 32-year-old female with Right great toe osteomyelitis Status post vancomycin and Zosyn in ED 1, continue cefepime IV, vancomycin has been discontinued due to acute renal failure Status post operative day #1 right great toe amputation and will need wound care and postop care for 10 days post surgery for wound to heal. Change pain medication to Percocet as needed for pain from [place]. Add low-dose gabapentin. Skin abscesses Anterior left chest abscess Cellulitis Soft tissue ultrasound noted without any evidence of drainable abscess Continue treatment with cefepime ID consultation appreciated Monitor culture report IVDU Cessation counseling HIV negative Tobacco abuse Tobacco counseling cessation provided Continue nicotine patch Acute renal failure may be due to vancomycin will discontinue antibiotic Worsening creatinine since admission however now is improving. Increase IV fluid hydration rate Avoid all nephrotoxic drug Nephrology consultation to be placed Obtain renal ultrasound which was negative., IV vancomycin was discontinued. hyperkalemia -Kayexalate DVT prophylaxis aspirin (1) Acute osteomyelitis of toe Qualifiers: Laterality: right Qualified Code(s): M86.171 - Other acute osteomyelitis, right ankle and foot (2) Abscess of skin and subcutaneous tissue Qualifiers: Site of cutaneous abscess: extremity Site of cutaneous abscess of extremity: foot Laterality: right Qualified Code(s): L02.611 - Cutaneous abscess of right foot (3) Cellulitis Qualifiers: Site of cellulitis: trunk Site of cellulitis of trunk: chest wall Qualified Code(s): L03.313 - Cellulitis of chest wall
[2017-08-24] MEDS ORDERED: SODIUM BICARBONATE IV.SIG ONE (11:00)
--- NOTE | 2017-08-24 11:28 | P.PNNP ---
Subjective Interval history: Had surgery yesterday. Her renal function is slightly better. Still with pain. Non oliguric. <Carmen Auguste - Last Filed: 08/24/17 11:25> Physical Exam Vital signs: Vital Signs 08/23/17 12:00 08/23/17 15:50 08/23/17 17:22 Temperature 98.1 F 98.5 F Pulse Rate 81 78 86 Respiratory Rate 20 20 Blood Pressure 113/75 106/68 Pulse Oximetry 98 99 08/23/17 17:30 08/23/17 17:45 08/23/17 18:00 Temperature Pulse Rate 80 75 75 Respiratory Rate 18 17 17 Blood Pressure 114/76 104/71 108/77 Pulse Oximetry 99 98 99 08/23/17 18:15 08/23/17 20:00 08/23/17 20:04 Temperature 98.6 F 97.8 F Pulse Rate 78 85 89 Respiratory Rate 16 18 Blood Pressure 107/73 121/65 Pulse Oximetry 99 97 08/24/17 00:00 08/24/17 04:00 08/24/17 04:03 Temperature 97.5 F L 97.5 F L Pulse Rate 72 69 67 Respiratory Rate 20 20 Blood Pressure 123/59 L 96/66 L Pulse Oximetry 97 94 L 08/24/17 08:00 Temperature 97.9 F Pulse Rate 78 Respiratory Rate 20 Blood Pressure 113/74 Pulse Oximetry 99 Intake & Output 08/23/17 08/24/17 08/24/17 18:59 06:59 18:59 Intake Total 1500 / 1500 2297 / 2297 Output Total 10 10 1400 / 1400 Balance 1490 / 1490 897 / 897 Weight 47.9 kg Intake: IV 1000 / 1000 1876 / 1877 NS Inj 1,000 ML @ 100 mls/hr IV 1000 / 1000 1876 / 187 .CONT .Q10H [facility] Rx#:[id number] Oral 0 / 0 420 / 420 Anesthesia Amount 500 / 500 Output: Urine 1400 / 1400 Estimated Blood Loss 10 / 10 Other: # Voids 1 # Bowel Movements 0 2 - Constitutional no acute distress - Routine HEENT Exam Head: Present: normocephalic Eye: Present: EOMI ENT: Present: mucous membranes moist - Routine Neck Exam Present: supple, full ROM - Routine Respiratory Exam Present: CTA bilaterally. Absent: accessory muscle use - Routine Cardiovascular Exam Present: RRR, S1, S2 - Routine Abdominal Exam Present: soft, normoactive bowel sounds - Routine Extremities Exam Present: pulses intact, normal capillary refill - Routine Skin Exam Present: warm Comments: s/p right hallux amputation - Routine Neurological Exam Present: alert, oriented X3 - Detailed Neurological Exam: Coma Scale Eye Opening: Spontaneous Verbal Response: Oriented Motor Response: [place] commands [place] Coma Scale Total: 15 <Carmen Auguste - Last Filed: 08/24/17 11:25> Vital signs: Vital Signs 08/23/17 20:00 08/23/17 20:04 08/24/17 00:00 Temperature 97.8 F 97.5 F L Pulse Rate 85 89 72 Respiratory Rate 18 20 Blood Pressure 121/65 123/59 L Pulse Oximetry 97 97 08/24/17 04:00 08/24/17 04:03 08/24/17 08:00 Temperature 97.5 F L 97.9 F Pulse Rate 69 67 78 Respiratory Rate 20 20 Blood Pressure 96/66 L 113/74 Pulse Oximetry 94 L 99 08/24/17 12:00 08/24/17 16:00 Temperature 97.7 F 97.9 F Pulse Rate 97 H 85 Respiratory Rate 21 20 Blood Pressure 118/72 112/69 Pulse Oximetry 99 100 Intake & Output 08/24/17 08/24/17 08/25/17 06:59 18:59 06:59 Intake Total 2297 / 2297 840 / 840 Output Total 1400 / 1400 700 / 700 Balance 897 / 897 140 / 140 Weight 47.9 kg Intake: IV 1877 / 1877 NS Inj 1,000 ML @ 100 mls/hr IV 1877 / 1877 .CONT .Q10H [facility] Rx#:[id number] Oral 420 / 420 840 / 840 Output: Urine 1400 / 1400 300 / 300 Urine/Stool Mix 400 / 400 Other: Date of Last Bowel Movement 08/24/17 # Bowel Movements 2 <Jaspreet Coon - Last Filed: 08/24/17 19:29> Assessment and Plan - Assessment (1) Acute renal failure Code(s): N17.9 - Acute kidney failure, unspecified Status: Acute Plan: Normal renal function at baseline. JOSH most likely due to Vancomycin induced nephrotoxicity. Renal function is slightly better, expect continued improvement. Continue to trend vanc levels. Renal US negative Pending UA, have asked the RN to collect IVF changed to bicarb gtt (D51/2 with 50 meq at 75 cc/hr) PO fluids encouraged. Repeat labs daily. Expect improvement. Avoid other nephrotoxic agents. (2) Acute osteomyelitis of toe Code(s): M86.179 - Other acute osteomyelitis, unspecified ankle and foot Status: Acute Qualifiers: Laterality: right Qualified Code(s): M86.171 - Other acute osteomyelitis, right ankle and foot Plan: Podiatry following s/p R great toe amputation 08/23 Antibiotics include cefepime (3) IVDU (intravenous drug user) Code(s): F19.90 - Other psychoactive substance use, unspecified, uncomplicated Status: Acute Plan: Advised cessation. Minimize narcotic exposure. <Carmen Auguste - Last Filed: 08/24/17 11:25> - Assessment (1) Acute renal failure Code(s): N17.9 - Acute kidney failure, unspecified Status: Acute (2) Acute osteomyelitis of toe Code(s): M86.179 - Other acute osteomyelitis, unspecified ankle and foot Status: Acute Qualifiers: Laterality: right Qualified Code(s): M86.171 - Other acute osteomyelitis, right ankle and foot (3) IVDU (intravenous drug user) Code(s): F19.90 - Other psychoactive substance use, unspecified, uncomplicated Status: Acute - Attending Attestation patient was seen and examined. Agree with above assessment and plan. <Jaspreet Coon - Last Filed: 08/24/17 19:29>
[2017-08-24] MEDS: Gabapentin 100 MG Capsule PO SCH ×2 (13:09→22:27)
[2017-08-24] MEDS: oxyCODONE/Acetaminophen 10/325 Tablet PO PRN ×3 (13:09→22:24)
--- NOTE | 2017-08-24 16:54 | P.PNID ---
Subjective Remarks: 32-year-old female with IVDU, history of right great toe osteomyelitis and cellulitis, multiple skin abscesses. cultures grew out MRSA from the blood and the right great toe wound. She was evaluated by podiatry and she had surgical intervention, which consisted of incision and drainage and bone debridement. The patient was notified that she would need long-term IV antibiotics. However, she signed out of the hospital against medical advice. She returned to the emergency department, because she was having increasing pain and she developed swelling and redness at the right chest wall at the upper aspect of the sternum and towards the left clavicle. She states that she was having difficulty raising her left arm rather because of pain. She went back to using IV drugs while she was outside of the hospital in the form of IV heroin and crack cocaine. C/O pain. Afebrile. Blood cultures has no growth. Allergies/Adverse Reactions: Allergies *MDRO Multi-Drug Resistant Organism Adverse Reaction (Unknown, Uncoded 08/20/17 10:09) NONE MRSA PCR screen POSITIVE-07/03/16 Objective Vital Signs 08/23/17 17:22 08/23/17 17:30 08/23/17 17:45 Temperature 98.5 F Pulse Rate 86 80 75 Respiratory Rate 20 18 17 Blood Pressure 106/68 114/76 104/71 Pulse Oximetry 99 99 98 08/23/17 18:00 08/23/17 18:15 08/23/17 20:00 Temperature 98.6 F 97.8 F Pulse Rate 75 78 85 Respiratory Rate 17 16 18 Blood Pressure 108/77 107/73 121/65 Pulse Oximetry 99 99 97 08/23/17 20:04 08/24/17 00:00 08/24/17 04:00 Temperature 97.5 F L 97.5 F L Pulse Rate 89 72 69 Respiratory Rate 20 20 Blood Pressure 123/59 L 96/66 L Pulse Oximetry 97 94 L 08/24/17 04:03 08/24/17 08:00 08/24/17 12:00 Temperature 97.9 F 97.7 F Pulse Rate 67 78 97 H Respiratory Rate 20 21 Blood Pressure 113/74 118/72 Pulse Oximetry 99 99 Intake & Output 08/23/17 08/24/17 08/24/17 18:59 06:59 18:59 Intake Total 1500 / 1500 2297 / 2297 Output Total 10 10 1400 / 1400 Balance 1490 / 1490 897 / 897 Weight 47.9 kg Intake: IV 1000 / 1000 1876 / 1876 NS Inj 1,000 ML @ 100 mls/hr IV 1000 / 1000 1876 / 1876 .CONT .Q10H [facility] Rx#:[id number] Oral 0 420 / 420 Anesthesia Amount 500 / 500 Output: Urine 1400 / 1400 Estimated Blood Loss Other: # Voids 1 # Bowel Movements 0 2 08/23/17 16:55 Wound - Foot Gram Stain - Final 08/23/17 16:55 Wound - Foot Wound Culture - Preliminary 08/20/17 12:00 Blood - Peripheral Aerobic Blood Culture - Preliminary No growth in 4 days 08/20/17 12:00 Blood - Peripheral Anaerobic Blood Culture - Preliminary No growth in 4 days 08/20/17 12:05 Blood - Peripheral Aerobic Blood Culture - Preliminary No growth in 4 days 08/20/17 12:05 Blood - Peripheral Anaerobic Blood Culture - Preliminary No growth in 4 days 08/23/17 16:55 Other Fungal Smear - Final No fungal elements seen 08/23/17 16:55 Other Fungal Culture - Pending 08/23/17 16:55 Other Acid Fast Bacilli Smear - Pending 08/23/17 16:55 Other Mycobacterial Culture - Pending Lab - Hematology Results 08/23/17 09:00 WBC 10.2 RBC 3.35 L Hgb 9.1 L Hct 27.5 L MCV 82.3 MCH 27.3 MCHC 33.1 RDW 15.5 Plt Count 530 H MPV 7.1 Neut % (Auto) 76.1 H Lymph % (Auto) 14.5 [place] % (Auto) 7.5 Eos % (Auto) 1.6 Baso % (Auto) 0.3 Neut # (Auto) 7.8 H Lymph # (Auto) 1.5 [place] # (Auto) 0.8 Eos # (Auto) 0.2 Baso # (Auto) 0.0 WBC Differential . Differential Comment Auto diff final Lab - Chemistry Results 08/23/17 08/24/17 09:00 07:17 Sodium 144 141 Potassium 4.3 5.4 H D Chloride 113 H 112 H Carbon Dioxide 19.5 L 19.6 L Anion Gap 12 9 BUN 31 H 33 H Creatinine 3.98 H 3.36 H Estimated GFR 13 L 16 L Random Glucose 96 75 Calcium 8.1 L 8.1 L Total Bilirubin 0.2 AST 11 L ALT 8 L Alkaline Phosphatase 62 Total Protein 6.0 L Albumin 2.0 L Imaging: ITS Impressions Chest X-Ray 08/20/17 10:19 CONCLUSION: 1. Resolution of mild bilateral airspace disease 2. No evidence of acute cardiopulmonary process. Foot X-Ray 08/20/17 10:23 CONCLUSION: Osteomyelitis proximal phalanx great toe progressed in the interval. Soft Tissue Ultrasound 08/21/17 00:00 CONCLUSION: 1. Thickness changes involving the chest wall without evidence of drainable abscess. Abdomen/Bladder Ultrasound 08/23/17 00:00 CONCLUSION: 1. Negative renal sonogram. Physical Exam: GENERAL: No acute distress. HEENT: The head is atraumatic. Extraocular movements grossly intact. Pupils reactive to light. No icterus. Oropharynx moist mucosa without lesions. NECK: Supple without adenopathy. LUNGS: Clear. Decreased breath sounds bilaterally. HEART: Regular S1 and S2. No murmurs heard. CHEST: Mild erythema and swelling over the upper sternum and left clavicle. ABDOMEN: Bowel sounds present. Soft, no tenderness appreciated. No masses palpable. EXTREMITIES: Multiple nodular raised skin lesions of the upper extremities, including the antecubital areas and forearms and the right great toe is swollen and there is mild erythema. SKIN: No diffuse rash. NEUROLOGIC: No gross focal findings. PSYCHIATRIC: Calm and cooperative. Assessment and Plan - Plan IMPRESSION: 1. Multiple skin abscesses. 2. Chest wall abscess/cellulitis. 3. Sepsis. The patient is known to have methicillin resistant staph aureus on recent hospitalization prior to signing out against medical advice and not receiving antibiotics on discharge. 4. Intravenous drug use. 5. Osteomyelitis of the right great toe. Now post amputation. RECOMMENDATIONS: 1. Continue vancomycin. 2. Continue cefepime. 3. Follow the new blood cultures. 4. Monitor the chest wound. 5. Follow clinical response to treatment and antibiotics to be adjusted depending on new findings and cultures. She will likely need 4 -6weeks of antibiotics.
[2017-08-24 17:42] LABS: Bilirubin,Urine Negative (Negative); Clarity,Urine Clear (Clear); Color,Urine Straw (Yellw/Straw); Glucose,Urine (UA) Negative (Negative); Leukocyte Esterase,Urine Negative (Negative); Nitrite,Urine Negative (Negative); Specific Gravity,Urine 1.009 (1.002-1.035); Squamous Epithelial Cell,Urine 1 /hpf (0-5)
[2017-08-25] MEDS: oxyCODONE/Acetaminophen 10/325 Tablet PO PRN ×5 (02:51→21:41)
[2017-08-25] MEDS: Sod Chloride 0.9% Inj 1,000 ML IV.CONT SCH (02:52)
[2017-08-25 07:30] LABS: Calcium 8.7 mg/dL (8.5-10.1); Carbon Dioxide 22.4 meq/L (21.0-32.0); Potassium 4.7 meq/L (3.5-5.1)
[2017-08-25 07:33] LABS: Vancomycin,Random 14.3 Comment
[2017-08-25] MEDS: Senna/Docusate Sodium 8.6/50 MG Tablet PO SCH ×2 (08:13→21:42)
[2017-08-25] MEDS: Aspirin 325 MG Tablet PO SCH (08:18)
[2017-08-25] MEDS: Lactobacillus Acidophilus/L. Spores Tablet PO SCH ×2 (08:18→21:41)
[2017-08-25] MEDS: Gabapentin 100 MG Capsule PO SCH ×2 (08:19→21:41)
--- NOTE | 2017-08-25 08:57 | P.PNPOD ---
Subjective Interval history: pain of right foot and chest. Physical Exam Vital signs: Vital Signs 08/24/17 12:00 08/24/17 16:00 08/24/17 20:00 Temperature 97.7 F 97.9 F 98.7 F Pulse Rate 97 H 85 97 H Respiratory Rate 21 20 18 Blood Pressure 118/72 112/69 112/56 L Pulse Oximetry 99 100 97 08/25/17 00:00 08/25/17 02:59 08/25/17 03:20 Temperature 97.9 F Pulse Rate 92 H Respiratory Rate 15 18 18 Blood Pressure 98/72 L Pulse Oximetry 99 08/25/17 04:00 Temperature 98 F Pulse Rate 83 Respiratory Rate 16 Blood Pressure 115/69 Pulse Oximetry 98 Intake & Output 08/24/17 08/25/17 08/25/17 18:59 06:59 18:59 Intake Total 1940 / 1940 420 / 420 Output Total 700 / 700 1000 / 1000 Balance 1240 / 1240 -580 / -580 Weight 49.5 kg Intake: IV 1100 / 1100 NS Inj 1,000 ML @ 100 mls/hr IV 1000 / 1000 .CONT .Q10H [facility] Rx#:[id number] Maxipime Inj 2,000 MG In NS Inj 100 / 100 100 ML @ 200 mls/hr IV.SIG Q24H [facility] Rx#:[id number] Oral 840 / 840 420 / 420 Output: Urine 300 / 300 1000 / 1000 Urine/Stool Mix 400 / 400 Other: Date of Last Bowel Movement 08/24/17 08/24/17 Narrative: Right hallux amputation site with minimal drainage tender, no necrosis, no signs of infection. 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 [facility] Stop: 08/25/17 19:13 Gabapentin (Neurontin) 100 mg PO BID [facility] Last Admin: 08/25/17 08:19 Dose: 100 mg Pharmacy Profile Note (Vancomycin Consult Pharmacy) 0 mls @ 0 mls/hr OTHER UNSCH [facility] Sodium Chloride (Ns Inj) 1,000 mls @ 100 mls/hr IV.CONT .Q10H [facility] Last Admin: 08/25/17 02:52 Dose: 100 mls/hr Sodium Chloride (Ns Inj) 500 mls @ 30 mls/hr IV.SIG .Q10H [facility] Stop: 08/25/17 19:13 Cefepime HCl 2,000 mg/ Sodium (Chloride) 100 mls @ 200 mls/hr IV.SIG Q24H [facility] Last Admin: 08/25/17 08:19 Dose: 200 mls/hr Vancomycin HCl 1,000 mg/ (Sodium Chloride) 250 mls @ 250 mls/hr IV.SIG Q24H [facility] Lactobacillus Acidophilus (Lactinex) 1 tab PO BID [facility] Last Admin: 08/25/17 08:18 Dose: 1 tab Lactulose (Lactulose Liq) 30 ml PO DAILY PRN PRN Reason: SEVERE CONSITIPATION Miscellaneous Information ([facility] [place] [facility] Ordered Lab Info) 0 each OTHER ONCE ONE Stop: 08/27/17 09:46 Naloxone HCl (Narcan Inj) 0.4 mg IV.PUSH UNSCH PRN PRN Reason: SEE LABEL COMMENTS Nicotine (Habitrol 21 Mg Patch.24 Hr) 1 patch T-DERMAL DAILY [facility] Last Admin: 08/25/17 08:18 Dose: 1 patch Ondansetron HCl (Zofran Inj) 4 mg IV.PUSH Q6H PRN PRN Reason: NAUSEA OR VOMITING Last Admin: 08/24/17 13:07 Dose: 4 mg Oxycodone/Acetaminophen (Percocet 5/325 Mg) 1 tab PO Q4H PRN PRN Reason: PAIN SCALE 3 TO 5 Oxycodone/Acetaminophen (Percocet 10/325 Mg) 1 tab PO Q4H PRN PRN Reason: PAIN SCALE 6 TO 10 Last Admin: 08/25/17 07:17 Dose: 1 tab Povidone Iodine (Betadine 5% Antisepsis Kit) 1 applicatio 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 [facility] Stop: 08/25/17 19:13 Senna/Docusate Sodium (Lori-Colace) 1 tab PO BID [facility] Last Admin: 08/25/17 08:13 Dose: Not Given Sennosides (Senokot) 17.2 mg PO Q12H PRN PRN Reason: Moderate Constipation Temazepam (Restoril) 15 mg PO HS PRN PRN Reason: INSOMNIA Last Admin: 08/24/17 22:40 Dose: 15 mg Allergies Allergy/AdvReac Type Severity Reaction Status Date / Time *MDRO Multi-Drug Resistant AdvReac Unknown NONE Uncoded 08/20/17 10:09 Organism Home Medications Medication Instructions Recorded Confirmed Type No Known Home Medications 08/20/17 08/20/17 History Results - Labs CBC & Chem 7: 08/23/17 09:00 08/25/17 05:35 Laboratory Results - last 24 hr 08/24/17 08/25/17 16:55 05:35 Sodium 144 Potassium 4.7 Chloride 112 H Carbon Dioxide 22.4 Anion Gap 10 BUN 33 H Creatinine 2.53 H Estimated GFR 22 L Random Glucose 54 L Calcium 8.7 Urine Color Straw Urine Clarity Clear Urine pH 5.0 Ur Specific [place] 1.009 Urine Protein Negative Urine Glucose (UA) Negative Urine Ketones Negative Urine Occult Blood Small H Urine Nitrate Negative Urine Bilirubin Negative Urine Urobilinogen Less than 2 Ur Leukocyte Esterase Negative Urine RBC 1 Urine WBC 3 Ur Squamous Epith Cells 1 Micro UA Comment Culture not ind Urine Culture Comments Culture not ind Random Vancomycin 14.3 Microbiology 08/23/17 16:55 Wound - Foot Gram Stain - Final 08/23/17 16:55 Wound - Foot Wound Culture - Preliminary 08/20/17 12:00 Blood - Peripheral Aerobic Blood Culture - Preliminary No growth in 4 days 08/20/17 12:00 Blood - Peripheral Anaerobic Blood Culture - Preliminary No growth in 4 days 08/20/17 12:05 Blood - Peripheral Aerobic Blood Culture - Preliminary No growth in 4 days 08/20/17 12:05 Blood - Peripheral Anaerobic Blood Culture - Preliminary No growth in 4 days 08/23/17 16:55 Other Fungal Smear - Final No fungal elements seen - Procedures 08/23 right great toe hallux amputation with Dr. Too Piña Assessment and Plan - Assessment (1) Acute osteomyelitis of toe Code(s): M86.179 - Other acute osteomyelitis, unspecified ankle and foot Status: Acute (2) Cellulitis Code(s): L03.90 - Cellulitis, unspecified Status: Acute (3) Abscess of skin and subcutaneous tissue Code(s): L02.91 - Cutaneous abscess, unspecified Status: Acute - Plan Bandage changed Betadine swab to wound Adaptic nursing to change bandage daily will wound check in 2-3 days. (1) Acute osteomyelitis of toe Qualifiers: Laterality: right Qualified Code(s): M86.171 - Other acute osteomyelitis, right ankle and foot (2) Cellulitis Qualifiers: Site of cellulitis: trunk Site of cellulitis of trunk: chest wall Qualified Code(s): L03.313 - Cellulitis of chest wall (3) Abscess of skin and subcutaneous tissue Qualifiers: Site of cutaneous abscess: extremity Site of cutaneous abscess of extremity: foot Laterality: right Qualified Code(s): L02.611 - Cutaneous abscess of right foot
[2017-08-25] MEDS ORDERED: Vancomycin Inj 1,000 MG in Sodium Chlor 0.9% Inj 250 ML IV.SIG ONE (10:00)
--- NOTE | 2017-08-25 10:45 | P.PNIM ---
Subjective Interval history: Patient tearful when she saw bandage change in the amputation of her toe. Reports Percocet does work better than the [place] for pain. Physical Exam Vital signs: Vital Signs 08/24/17 12:00 08/24/17 16:00 08/24/17 20:00 Temperature 97.7 F 97.9 F 98.7 F Pulse Rate 97 H 85 97 H Respiratory Rate 21 20 18 Blood Pressure 118/72 112/69 112/56 L Pulse Oximetry 99 100 97 08/25/17 00:00 08/25/17 02:59 08/25/17 03:20 Temperature 97.9 F Pulse Rate 92 H Respiratory Rate 15 18 18 Blood Pressure 98/72 L Pulse Oximetry 99 08/25/17 04:00 Temperature 98 F Pulse Rate 83 Respiratory Rate 16 Blood Pressure 115/69 Pulse Oximetry 98 Intake & Output 08/24/17 08/25/17 08/25/17 18:59 06:59 18:59 Intake Total 1940 / 1940 420 / 420 Output Total 700 / 700 1000 / 1000 Balance 1240 / 1240 -580 / -580 Weight 49.5 kg Intake: IV 1100 / 1100 NS Inj 1,000 ML @ 100 mls/hr IV 1000 / 1000 .CONT .Q10H [facility] Rx#:[id number] Maxipime Inj 2,000 MG In NS Inj 100 / 100 100 ML @ 200 mls/hr IV.SIG Q24H [facility] Rx#:[id number] Oral 840 / 840 420 / 420 Output: Urine 300 / 300 1000 / 1000 Urine/Stool Mix 400 / 400 Other: Date of Last Bowel Movement 08/24/17 08/24/17 Narrative: GENERAL: This is a well-nourished, well-developed patient, in no apparent distress, tearful. CARDIOVASCULAR: Regular rate and rhythm RESPIRATORY: Clear to auscultation. Breath sounds equal bilaterally. No wheezes , rales, or rhonchi. GASTROINTESTINAL: Abdomen soft, non-tender, nondistended. Normal active bowel sounds MUSCULOSKELETAL: Bandage on right foot clean dry and intact wrapped in Nael bandage, after bandage unwrapped and saw a right amputation site of the great toe wound and stitches in place with no erythema or drainage. Healing well. NEURO: Alert & Oriented x4 to person, place, time, situation. Moves all ext x4 Results - Labs CBC & Chem 7: 08/23/17 09:00 08/25/17 05:35 Laboratory Results - last 24 hr 08/24/17 08/25/17 16:55 05:35 Sodium 144 Potassium 4.7 Chloride 112 H Carbon Dioxide 22.4 Anion Gap 10 BUN 33 H Creatinine 2.53 H Estimated GFR 22 L Random Glucose 54 L Calcium 8.7 Urine Color Straw Urine Clarity Clear Urine pH 5.0 Ur Specific [place] 1.009 Urine Protein Negative Urine Glucose (UA) Negative Urine Ketones Negative Urine Occult Blood Small H Urine Nitrate Negative Urine Bilirubin Negative Urine Urobilinogen Less than 2 Ur Leukocyte Esterase Negative Urine RBC 1 Urine WBC 3 Ur Squamous Epith Cells 1 Micro UA Comment Culture not ind Urine Culture Comments Culture not ind Random Vancomycin 14.3 Microbiology 08/23/17 16:55 Wound - Foot Gram Stain - Final 08/23/17 16:55 Wound - Foot Wound Culture - Preliminary 08/20/17 12:00 Blood - Peripheral Aerobic Blood Culture - Preliminary No growth in 4 days 08/20/17 12:00 Blood - Peripheral Anaerobic Blood Culture - Preliminary No growth in 4 days 08/20/17 12:05 Blood - Peripheral Aerobic Blood Culture - Preliminary No growth in 4 days 08/20/17 12:05 Blood - Peripheral Anaerobic Blood Culture - Preliminary No growth in 4 days 08/23/17 16:55 Other Fungal Smear - Final No fungal elements seen - Procedures 08/23 right great toe hallux amputation with Dr. Too Piña Assessment and Plan - Assessment (1) Acute osteomyelitis of toe Code(s): M86.179 - Other acute osteomyelitis, unspecified ankle and foot Status: Acute (2) Abscess of skin and subcutaneous tissue Code(s): L02.91 - Cutaneous abscess, unspecified Status: Acute (3) Cellulitis Code(s): L03.90 - Cellulitis, unspecified Status: Acute (4) IVDU (intravenous drug user) Code(s): F19.90 - Other psychoactive substance use, unspecified, uncomplicated Status: Acute - Plan 32-year-old female with Right great toe osteomyelitis Status post vancomycin and Zosyn in ED 1, continue cefepime IV, vancomycin has been discontinued due to acute renal failure Status post operative day #12 right great toe amputation and will need wound care and postop care for 10 days post surgery for wound to heal. Change pain medication to Percocet as needed for pain from [place]. Add low-dose gabapentin. Discussed with Dr. Piña. Skin abscesses Anterior left chest abscess Cellulitis Soft tissue ultrasound noted without any evidence of drainable abscess Continue treatment with cefepime will need at least 4-6 weeks. ID consultation appreciated per Dr. Tello. Monitor culture report IVDU Cessation counseling HIV negative Tobacco abuse Tobacco counseling cessation provided Continue nicotine patch Acute renal failure may be due to vancomycin will discontinue antibiotic Worsening creatinine since admission however now is improving. Avoid all nephrotoxic drug Nephrology consultation to be placed Obtain renal ultrasound which was negative., IV vancomycin was discontinued. hyperkalemia -Kayexalate, resolved. DVT prophylaxis aspirin (1) Acute osteomyelitis of toe Qualifiers: Laterality: right Qualified Code(s): M86.171 - Other acute osteomyelitis, right ankle and foot (2) Abscess of skin and subcutaneous tissue Qualifiers: Site of cutaneous abscess: extremity Site of cutaneous abscess of extremity: foot Laterality: right Qualified Code(s): L02.611 - Cutaneous abscess of right foot (3) Cellulitis Qualifiers: Site of cellulitis: trunk Site of cellulitis of trunk: chest wall Qualified Code(s): L03.313 - Cellulitis of chest wall
--- NOTE | 2017-08-25 12:00 | P.PNNP ---
Subjective Interval history: More alert today. Renal function is better. No new concerns. <Carmen Auguste - Last Filed: 08/25/17 11:49> Physical Exam Vital signs: Vital Signs 08/24/17 12:00 08/24/17 16:00 08/24/17 20:00 Temperature 97.7 F 97.9 F 98.7 F Pulse Rate 97 H 85 97 H Respiratory Rate 21 20 18 Blood Pressure 118/72 112/69 112/56 L Pulse Oximetry 99 100 97 08/25/17 00:00 08/25/17 02:59 08/25/17 03:20 Temperature 97.9 F Pulse Rate 92 H Respiratory Rate 15 18 18 Blood Pressure 98/72 L Pulse Oximetry 99 08/25/17 04:00 08/25/17 08:00 Temperature 98 F 97.8 F Pulse Rate 83 83 Respiratory Rate 16 18 Blood Pressure 115/69 115/75 Pulse Oximetry 98 98 Intake & Output 08/24/17 08/25/17 08/25/17 18:59 06:59 18:59 Intake Total 1940 / 1940 420 / 420 Output Total 700 / 700 1000 / 1000 Balance 1240 / 1240 -580 / -580 Weight 49.5 kg Intake: IV 1100 / 1100 NS Inj 1,000 ML @ 100 mls/hr IV 1000 / 1000 .CONT .Q10H [facility] Rx#:[id number] Maxipime Inj 2,000 MG In NS Inj 100 / 100 100 ML @ 200 mls/hr IV.SIG Q24H [facility] Rx#:[id number] Oral 840 / 840 420 / 420 Output: Urine 300 / 300 1000 / 1000 Urine/Stool Mix 400 / 400 Other: Date of Last Bowel Movement 08/24/17 08/24/17 - Constitutional no acute distress, average body habitus - Routine HEENT Exam Head: Present: normocephalic - Routine Neck Exam Present: supple, full ROM - Routine Respiratory Exam Present: CTA bilaterally. Absent: accessory muscle use - Routine Cardiovascular Exam Present: RRR, S1, S2 - Routine Abdominal Exam Present: soft, normoactive bowel sounds - Routine Extremities Exam Absent: edema Comments: s/p right first digit toe amputation. Dressing in place. - Routine Skin Exam Present: warm - Routine Neurological Exam Present: alert, oriented X3 - Detailed Neurological Exam: Coma Scale Eye Opening: Spontaneous Verbal Response: Oriented Motor Response: Obey commands Sherry Coma Scale Total: 15 - Routine Psychiatric Exam Present: normal affect, normal thought process <Carmen Auguste - Last Filed: 08/25/17 11:49> Vital signs: Vital Signs 08/24/17 20:00 08/25/17 00:00 08/25/17 02:59 Temperature 98.7 F 97.9 F Pulse Rate 97 H 92 H Respiratory Rate 18 Blood Pressure 112/56 L 98/72 L Pulse Oximetry 97 99 08/25/17 03:20 08/25/17 04:00 08/25/17 08:00 Temperature 98 F 97.8 F Pulse Rate 83 83 Respiratory Rate 18 Blood Pressure 115/69 115/75 Pulse Oximetry 98 98 08/25/17 12:00 08/25/17 16:00 Temperature 98.3 F 98.4 F Pulse Rate 81 94 H Respiratory Rate 18 Blood Pressure 110/68 114/68 Pulse Oximetry 98 99 Intake & Output 08/25/17 08/25/17 08/26/17 06:59 18:59 06:59 Intake Total 420 / 420 1080 / 1080 Output Total 1000 / 1000 1000 / 1000 Balance -580 / -580 80 / 80 Weight 49.5 kg Intake: Oral 420 / 420 1080 / 1080 Output: Urine 1000 / 1000 1000 / 1000 Other: Date of Last Bowel Movement 08/24/17 08/24/17 <Jaspreet Coon - Last Filed: 08/25/17 19:41> Assessment and Plan - Assessment (1) Acute renal failure Code(s): N17.9 - Acute kidney failure, unspecified Status: Acute Plan: Normal renal function at baseline. JOSH most likely due to Vancomycin induced nephrotoxicity. It was stopped. Renal function is improving, we expect continued improvement. UA was unremarkable, she is non oliguric. Stop IVF, PO fluids encouraged. Unclear why bicarb gtt was never started/given. Repeat labs daily. Expect improvement. Avoid other nephrotoxic agents. (2) Acute osteomyelitis of toe Code(s): M86.179 - Other acute osteomyelitis, unspecified ankle and foot Status: Acute Qualifiers: Laterality: right Qualified Code(s): M86.171 - Other acute osteomyelitis, right ankle and foot Plan: Podiatry following. ID to be consulted s/p R great toe amputation 08/23 Antibiotics include cefepime,, avoid vancomycin. (3) IVDU (intravenous drug user) Code(s): F19.90 - Other psychoactive substance use, unspecified, uncomplicated Status: Acute Plan: Advised cessation. Minimize narcotic exposure. - Plan We will sign off, and see the patient as needed. Please call us if any questions or concerns. <Carmen Auguste - Last Filed: 08/25/17 11:49> - Assessment (1) Acute renal failure Code(s): N17.9 - Acute kidney failure, unspecified Status: Acute (2) Acute osteomyelitis of toe Code(s): M86.179 - Other acute osteomyelitis, unspecified ankle and foot Status: Acute Qualifiers: Laterality: right Qualified Code(s): M86.171 - Other acute osteomyelitis, right ankle and foot (3) IVDU (intravenous drug user) Code(s): F19.90 - Other psychoactive substance use, unspecified, uncomplicated Status: Acute - Attending Attestation patient was seen and examined. Agree with above assessment and plan. <Jaspreet Coon - Last Filed: 08/25/17 19:41>
[2017-08-25] MEDS ORDERED: SODIUM CHLOR 0.9% IV.SIG SCH (15:00)
[2017-08-25] MEDS ORDERED: DAPTOMYCIN IV.SIG SCH (15:00)
[2017-08-25] MEDS: SODIUM CHLOR 0.9% IV.SIG SCH (17:29)
[2017-08-25] MEDS: DAPTOMYCIN IV.SIG SCH (17:29)
[2017-08-25] MEDS: Temazepam 15 MG Capsule PO PRN (21:41)
[2017-08-26] MEDS: oxyCODONE/Acetaminophen 10/325 Tablet PO PRN ×5 (02:22→19:49)
[2017-08-26 08:20] LABS: Calcium 8.6 mg/dL (8.5-10.1); Carbon Dioxide 24.2 meq/L (21.0-32.0); Potassium 4.7 meq/L (3.5-5.1)
[2017-08-26] MEDS: Lactobacillus Acidophilus/L. Spores Tablet PO SCH ×2 (08:27→21:39)
[2017-08-26] MEDS: Aspirin 325 MG Tablet PO SCH (08:28)
[2017-08-26] MEDS: Senna/Docusate Sodium 8.6/50 MG Tablet PO SCH ×2 (08:28→22:26)
[2017-08-26] MEDS: Gabapentin 100 MG Capsule PO SCH ×2 (08:28→21:40)
--- NOTE | 2017-08-26 10:52 | P.PNIM ---
Subjective Interval history: Reports that his friends family with shot last night and his father did not make it. Needs to leave the hospital to attend the and see how her friend is doing. Physical Exam Vital signs: Vital Signs 08/25/17 12:00 08/25/17 16:00 08/25/17 20:00 Temperature 98.3 F 98.4 F 98.8 F Pulse Rate 81 94 H 92 H Respiratory Rate 18 18 18 Blood Pressure 110/68 114/68 107/65 Pulse Oximetry 98 99 98 08/26/17 00:00 08/26/17 04:00 08/26/17 08:00 Temperature 98.4 F 98.1 F 97.8 F Pulse Rate 78 78 81 Respiratory Rate 18 18 Blood Pressure 126/85 130/81 110/53 L Pulse Oximetry 99 98 99 Intake & Output 08/25/17 08/26/17 08/26/17 18:59 06:59 18:59 Intake Total 1280 / 1280 240 / 240 100 / 100 Output Total 1000 / 1000 1949 Balance 280 / 280 -1710 / -1710 100 / 100 Weight 53.9 kg Intake: IV 200 / 200 100 / 100 Maxipime Inj 2,000 MG In NS Inj 100 / 100 100 / 100 100 ML @ 200 mls/hr IV.SIG Q24H [facility] Rx#:[id number] Cubicin Inj 300 MG In NS Inj 100 / 100 100 ML @ 200 mls/hr IV.SIG Q48H [facility] Rx#:[id number] Oral 1080 / 1080 240 / 240 Output: Urine 1000 / 1000 1949 Other: Date of Last Bowel Movement 08/24/17 08/24/17 # Bowel Movements 0 Narrative: GENERAL: This is a well-nourished, well-developed patient, in no apparent distress, tearful. CARDIOVASCULAR: Regular rate and rhythm RESPIRATORY: Clear to auscultation. Breath sounds equal bilaterally. No wheezes , rales, or rhonchi. GASTROINTESTINAL: Abdomen soft, non-tender, nondistended. Normal active bowel sounds MUSCULOSKELETAL: Bandage on right foot clean dry and intact wrapped in Nael bandage, NEURO: Alert & Oriented x4 to person, place, time, situation. Moves all ext x4 Results - Labs CBC & Chem 7: 08/23/17 09:00 08/26/17 06:54 Laboratory Results - last 24 hr 08/26/17 06:54 Sodium 142 Potassium 4.7 Chloride 109 H Carbon Dioxide 24.2 Anion Gap 9 BUN 31 H Creatinine 1.79 H Estimated GFR 33 L Random Glucose 72 L Calcium 8.6 Random Vancomycin 18.0 Microbiology 08/23/17 16:55 Other Acid Fast Bacilli Smear - Final No acid fast bacilli seen 08/23/17 16:55 Wound - Foot Gram Stain - Final 08/23/17 16:55 Wound - Foot Wound Culture - Final S. aureus MRSA 08/20/17 12:00 Blood - Peripheral Aerobic Blood Culture - Final No growth in 5 days 08/20/17 12:00 Blood - Peripheral Anaerobic Blood Culture - Final No growth in 5 days 08/20/17 12:05 Blood - Peripheral Aerobic Blood Culture - Final No growth in 5 days 08/20/17 12:05 Blood - Peripheral Anaerobic Blood Culture - Final No growth in 5 days - Procedures 08/23 right great toe hallux amputation with Dr. Too Piña Assessment and Plan - Assessment (1) Acute osteomyelitis of toe Code(s): M86.179 - Other acute osteomyelitis, unspecified ankle and foot Status: Acute (2) Abscess of skin and subcutaneous tissue Code(s): L02.91 - Cutaneous abscess, unspecified Status: Acute (3) Cellulitis Code(s): L03.90 - Cellulitis, unspecified Status: Acute (4) IVDU (intravenous drug user) Code(s): F19.90 - Other psychoactive substance use, unspecified, uncomplicated Status: Acute - Plan 32-year-old female with Right great toe osteomyelitis Status post vancomycin and Zosyn in ED 1, continue cefepime IV, vancomycin has been discontinued due to acute renal failure and started on IV Cubicin due to MRSA Status post operative day #3 right great toe amputation and will need wound care and postop care for 10 days post surgery for wound to heal. Change pain medication to Percocet as needed for pain from [place]. Add low-dose gabapentin. Discussed with Dr. Piña. Discussed with patient the risks of leaving AGAINST MEDICAL ADVICE and having worsening of surgical wound and infection that could lead to . She voiced understanding and states that she likely will need to leave the hospital to attend her friend's family's . Skin abscesses Anterior left chest abscess Cellulitis Soft tissue ultrasound noted without any evidence of drainable abscess Continue treatment with Cubicin and cefepime will need at least 4-6 weeks. ID consultation appreciated per Dr. Tello. Monitor culture report IVDU Cessation counseling HIV negative Tobacco abuse Tobacco counseling cessation provided Continue nicotine patch Acute renal failure may be due to vancomycin will discontinue antibiotic Worsening creatinine since admission however now is improving. Avoid all nephrotoxic drug Nephrology consultation to be placed Obtain renal ultrasound which was negative., IV vancomycin was discontinued. hyperkalemia -Kayexalate, resolved. DVT prophylaxis aspirin (1) Acute osteomyelitis of toe Qualifiers: Laterality: right Qualified Code(s): M86.171 - Other acute osteomyelitis, right ankle and foot (2) Abscess of skin and subcutaneous tissue Qualifiers: Site of cutaneous abscess: extremity Site of cutaneous abscess of extremity: foot Laterality: right Qualified Code(s): L02.611 - Cutaneous abscess of right foot (3) Cellulitis Qualifiers: Site of cellulitis: trunk Site of cellulitis of trunk: chest wall Qualified Code(s): L03.313 - Cellulitis of chest wall
--- NOTE | 2017-08-26 13:02 | P.PNID ---
Subjective Remarks: Patient reports loss of a friends dad who was murdered yesterday. Tearful. Patient has less pain in the chest. Afebrile. Renal function decline noted. Denies SOB. Notes coughing up green sputum with black specs. 32-year-old female with IVDU, history of right great toe osteomyelitis and cellulitis, multiple skin abscesses. cultures grew out MRSA from the blood and the right great toe wound. She was evaluated by podiatry and she had surgical intervention, which consisted of incision and drainage and bone debridement. The patient was notified that she would need long-term IV antibiotics. However, she signed out of the hospital against medical advice. She returned to the emergency department, because she was having increasing pain and she developed swelling and redness at the right chest wall at the upper aspect of the sternum and towards the left clavicle. She states that she was having difficulty raising her left arm rather because of pain. She went back to using IV drugs while she was outside of the hospital in the form of IV heroin and crack cocaine. Antibiotics: Daptomycin. Cefepime. Allergies/Adverse Reactions: Allergies No Known Allergies Allergy (Unverified 08/26/17 09:48) Objective Vital Signs 08/25/17 16:00 08/25/17 20:00 08/26/17 00:00 Temperature 98.4 F 98.8 F 98.4 F Pulse Rate 94 H 92 H 78 Respiratory Rate 18 18 18 Blood Pressure 114/68 107/65 126/85 Pulse Oximetry 99 98 99 08/26/17 04:00 08/26/17 08:00 Temperature 98.1 F 97.8 F Pulse Rate 78 81 Respiratory Rate 18 18 Blood Pressure 130/81 110/53 L Pulse Oximetry 98 99 Intake & Output 08/25/17 08/26/17 08/26/17 18:59 06:59 18:59 Intake Total 1280 / 1280 240 / 240 100 / 100 Output Total 1000 / 1000 1950 / 1950 Balance 280 / 280 -1710 / -1710 100 / 100 Weight 53.9 kg Intake: IV 200 / 200 100 / 100 Maxipime Inj 2,000 MG In NS Inj 100 / 100 100 / 100 100 ML @ 200 mls/hr IV.SIG Q24H [facility] Rx#:[id number] Cubicin Inj 300 MG In NS Inj 100 / 100 100 ML @ 200 mls/hr IV.SIG Q48H [facility] Rx#:[id number] Oral 1080 / 1080 240 / 240 Output: Urine 1000 / 1000 1950 / 1950 Other: Date of Last Bowel Movement 08/24/17 08/24/17 # Bowel Movements 0 08/23/17 16:55 Other Acid Fast Bacilli Smear - Final No acid fast bacilli seen 08/23/17 16:55 Other Mycobacterial Culture - Pending 08/23/17 16:55 Wound - Foot Gram Stain - Final 08/23/17 16:55 Wound - Foot Wound Culture - Final S. aureus MRSA 08/20/17 12:00 Blood - Peripheral Aerobic Blood Culture - Final No growth in 5 days 08/20/17 12:00 Blood - Peripheral Anaerobic Blood Culture - Final No growth in 5 days 08/20/17 12:05 Blood - Peripheral Aerobic Blood Culture - Final No growth in 5 days 08/20/17 12:05 Blood - Peripheral Anaerobic Blood Culture - Final No growth in 5 days 08/23/17 16:55 Other Fungal Smear - Final No fungal elements seen 08/23/17 16:55 Other Fungal Culture - Pending Lab - Chemistry Results 08/25/17 08/26/17 05:35 06:54 Sodium 144 142 Potassium 4.7 4.7 Chloride 112 H 109 H Carbon Dioxide 22.4 24.2 Anion Gap 10 9 BUN 33 H 31 H Creatinine 2.53 H 1.79 H Estimated GFR 22 L 33 L Random Glucose 54 L 72 L Calcium 8.7 8.6 Imaging: ITS Impressions Chest X-Ray 08/20/17 10:19 CONCLUSION: 1. Resolution of mild bilateral airspace disease 2. No evidence of acute cardiopulmonary process. Foot X-Ray 08/20/17 10:23 CONCLUSION: Osteomyelitis proximal phalanx great toe progressed in the interval. Soft Tissue Ultrasound 08/21/17 00:00 CONCLUSION: 1. Thickness changes involving the chest wall without evidence of drainable abscess. Abdomen/Bladder Ultrasound 08/23/17 00:00 CONCLUSION: 1. Negative renal sonogram. Physical Exam: GENERAL: No acute distress. HEENT: The head is atraumatic. Extraocular movements grossly intact. Pupils reactive to light. No icterus. Oropharynx moist mucosa without lesions. NECK: Supple without adenopathy. LUNGS: Decreased breath sounds bilaterally. HEART: Regular S1 and S2. No murmurs heard. CHEST: Mild erythema, decreased swelling over the upper sternum and left clavicle. ABDOMEN: Bowel sounds present. Soft, no tenderness appreciated. EXTREMITIES: Multiple nodular raised skin lesions of the upper extremities, including the antecubital areas and forearms and the right great toe is swollen and there is mild erythema. SKIN: No diffuse rash. NEUROLOGIC: No gross focal findings. PSYCHIATRIC: Calm and cooperative. Assessment and Plan - Plan IMPRESSION: 1. Multiple skin abscesses. 2. Chest wall abscess/cellulitis. 3. Sepsis. The patient is known to have methicillin resistant staph aureus on recent hospitalization prior to signing out against medical advice and not receiving antibiotics on discharge. 4. Intravenous drug use. 5. Osteomyelitis of the right great toe. Now post amputation. RECOMMENDATIONS: 1. Continue Daptomycin. 2. Continue cefepime. 3. Obtain sputum culture. 4. Monitor the chest wound. 5. Follow clinical response to treatment and antibiotics to be adjusted depending on new findings and cultures. Plan 4 -6 weeks of antibiotics. Patient expresses desire to leave the hospital to attend friends dad's . Due to her severe illness, I told her it is not in her best interest to do so and that her IV antibiotic treatment should not be interrupted.
[2017-08-26] MEDS ORDERED: Vancomycin Inj 1,000 MG in Sodium Chlor 0.9% Inj 250 ML IV.SIG ONE (16:00)
[2017-08-26] MEDS: Temazepam 15 MG Capsule PO PRN (21:39)
[2017-08-27] MEDS: oxyCODONE/Acetaminophen 10/325 Tablet PO PRN ×3 (06:20→17:31)
[2017-08-27] MEDS: Senna/Docusate Sodium 8.6/50 MG Tablet PO SCH (08:31)
[2017-08-27] MEDS: Lactobacillus Acidophilus/L. Spores Tablet PO SCH (08:31)
[2017-08-27] MEDS: Aspirin 325 MG Tablet PO SCH (08:32)
[2017-08-27] MEDS: Gabapentin 100 MG Capsule PO SCH (08:32)
[2017-08-27 09:03] LABS: Calcium 8.8 mg/dL (8.5-10.1); Carbon Dioxide 25.1 meq/L (21.0-32.0); Potassium 4.8 meq/L (3.5-5.1)
[2017-08-27] MEDS ORDERED: Pharmacy Ordered Lab Info OTHER ONE (09:45)
--- NOTE | 2017-08-27 12:26 | P.DIET ---
Nutritional Evaluation Type of nutrition evaluation: follow-up Nutrition screening: Weight Loss > 10 lbs Objective - Diagnosis Cellulitis, Osteomyelitis R Great Toe - Objective % IBW: 118 (IBW=97#) Body Weight Used for Calculations: Actual (52.2kg) Energy Needs - Lower Range (kCal/kg): 28 Energy Needs - Upper Range (kCal/kg): 32 Lower Limit kCal/kg (kCals): 1,462 Upper Limit kCal/kg (kCals): 1,670 Lower Limit Protein Factor (Grams per Kg): 1.2 Upper Limit Protein Factor (Grams per Kg): 1.4 Lower Protein Needs (Protein): 63 Upper Protein Needs (Protein): 73 Fluid Factor (ml/kg): 32 Estimated Fluid Needs (ml): 1,670 Dietitian Reviewed in Medical Record: Current diet, Curent medications, Intake & Output, Labs, Medical history Diet Order: Regular Oral Diet Intake Amount: Excellent 90%+ Objective Comments: Meds: Lactinex Labs: BUN 28, test designer 1.26, eGFR 49 LBM 08/24 08/23 R Hallux Amputation Assessment Assessment: Pt remains on a Regular diet and is eating well. She is s/p R hallux amputation on 08/23. She is to stay inpatient for 10days after sx for antibiotics and healing. Will provide pt w/ Enlive QD for additional nutrition and wound healing. Dietitian following. Recommendations: 1. Enlive QD. Dietitian to Monitor: Lab values, Supplement acceptance, Intake & Output, Diet tolerance, Weight change, PO Intake, Wound/skin status, Medical course
--- NOTE | 2017-08-27 13:39 | P.PNIM ---
Subjective Interval history: Patient complained of more left upper chest clavicle and neck and shoulder pain. Feels her infection may be getting worse from the chest wall. No fevers or chills. Physical Exam Vital signs: Vital Signs 08/26/17 20:00 08/27/17 00:00 08/27/17 04:00 Temperature 97.3 F L 97.9 F 98.7 F Pulse Rate 81 84 74 Respiratory Rate 18 18 18 Blood Pressure 128/82 116/76 113/74 Pulse Oximetry 100 100 97 08/27/17 08:00 08/27/17 12:00 Temperature 97.7 F 97.6 F Pulse Rate 71 81 Respiratory Rate 18 18 Blood Pressure 148/78 H 109/65 Pulse Oximetry 100 96 Intake & Output 08/26/17 08/27/17 08/27/17 18:59 06:59 18:59 Intake Total 350 / 350 1050 / 1050 100 / 100 Output Total 2550 / 2550 Balance 350 / 350 -1500 / -1500 100 / 100 Weight 52.2 kg Intake: IV 350 / 350 100 / 100 Maxipime Inj 2,000 MG In NS Inj 100 / 100 100 / 100 100 ML @ 200 mls/hr IV.SIG Q24H [facility] Rx#:[id number] Vancomycin Inj 1,000 MG In NS 250 / 250 Inj 250 ML @ 250 mls/hr IV.SIG ONCE ONE Rx#:[id number] Oral 1050 / 1050 Output: Urine 2550 / 2550 Other: Date of Last Bowel Movement 08/24/17 08/24/17 # Bowel Movements 0 Narrative: GENERAL: This is a well-nourished, well-developed patient, in no apparent distress, tearful. CARDIOVASCULAR: Regular rate and rhythm RESPIRATORY: Clear to auscultation. Breath sounds equal bilaterally. No wheezes , rales, or rhonchi. GASTROINTESTINAL: Abdomen soft, non-tender, nondistended. Normal active bowel sounds MUSCULOSKELETAL: Bandage on right foot clean dry and intact wrapped in Nael bandage, NEURO: Alert & Oriented x4 to person, place, time, situation. Moves all ext x4 Chest wall: Tenderness on palpation of left clavicle and left upper chest and neck area. Tenderness on palpation of the shoulder and the AC joint area with patient having difficulty lifting past 90 without significant pain. Results - Labs CBC & Chem 7: 08/23/17 09:00 08/27/17 07:18 Laboratory Results - last 24 hr 08/27/17 07:18 Sodium 142 Potassium 4.8 Chloride 108 H Carbon Dioxide 25.1 Anion Gap 9 BUN 28 H Creatinine 1.26 H Estimated GFR 49 L Random Glucose 72 L Calcium 8.8 Random Vancomycin 12.0 - Procedures 08/23 right great toe hallux amputation with Dr. Too Piña Assessment and Plan - Assessment (1) Acute osteomyelitis of toe Code(s): M86.179 - Other acute osteomyelitis, unspecified ankle and foot Status: Acute (2) Abscess of skin and subcutaneous tissue Code(s): L02.91 - Cutaneous abscess, unspecified Status: Acute (3) Cellulitis Code(s): L03.90 - Cellulitis, unspecified Status: Acute (4) IVDU (intravenous drug user) Code(s): F19.90 - Other psychoactive substance use, unspecified, uncomplicated Status: Acute - Plan 32-year-old female with Right great toe osteomyelitis Status post vancomycin and Zosyn in ED 1, continue cefepime IV, vancomycin has been discontinued due to acute renal failure and started on IV Cubicin due to MRSA Status post operative day #3 right great toe amputation and will need wound care and postop care for 10 days post surgery for wound to heal. Change pain medication to Percocet as needed for pain from [place]. Add low-dose gabapentin. Discussed with Dr. Piña. Discussed with patient the risks of leaving AGAINST MEDICAL ADVICE and having worsening of surgical wound and infection that could lead to . She voiced understanding and states that she likely will need to leave the hospital to attend her friend's family's . Skin abscesses Anterior left chest abscess Cellulitis Soft tissue ultrasound noted without any evidence of drainable abscess in the past Due to patient's complaint of increasing pain, will obtain a CT of the neck soft tissue and chest along with left MRI of the shoulder to rule out any underlying early abscess or septic joint findings. Continue treatment with Cubicin and cefepime will need at least 4-6 weeks. ID consultation appreciated per Dr. Tello. Monitor culture report IVDU Cessation counseling HIV negative Tobacco abuse Tobacco counseling cessation provided Continue nicotine patch Acute renal failure may be due to vancomycin will discontinue antibiotic Worsening creatinine since admission however now is improving. Avoid all nephrotoxic drug Nephrology consultation to be placed Obtain renal ultrasound which was negative., IV vancomycin was discontinued. hyperkalemia -Kayexalate, resolved. DVT prophylaxis aspirin (1) Acute osteomyelitis of toe Qualifiers: Laterality: right Qualified Code(s): M86.171 - Other acute osteomyelitis, right ankle and foot (2) Abscess of skin and subcutaneous tissue Qualifiers: Site of cutaneous abscess: extremity Site of cutaneous abscess of extremity: foot Laterality: right Qualified Code(s): L02.611 - Cutaneous abscess of right foot (3) Cellulitis Qualifiers: Site of cellulitis: trunk Site of cellulitis of trunk: chest wall Qualified Code(s): L03.313 - Cellulitis of chest wall
[2017-08-27] MEDS: DAPTOMYCIN IV.SIG SCH (16:55)
[2017-08-27] MEDS: SODIUM CHLOR 0.9% IV.SIG SCH (16:55)
--- NOTE | 2017-08-27 18:14 | CT ---
EXAM DATE: 08/27/2017 6:02 PM EDT AGE/SEX: 32 years / Female INDICATIONS: Neck pain for two days. CLINICAL DATA: This is the patient's initial encounter. Patient reports that signs and symptoms have been present for 2 days and indicates a pain score of 7/10. MEDICAL/SURGICAL HISTORY: None. None. RADIATION DOSE: 22.67 CTDI (mGy) COMPARISON: [facility] [place], CT THORAX W CONTRAST, 07/26/2017. [facility], CLAVICLE LEFT, 07/25/2017. [facility], CHEST 1V SINGLE AP, 08/20/2017. . TECHNIQUE: Helical acquisition was performed using a multirow detector CT scanner during the adminis tration of 70 ml Omnipaque 350 (iohexol) nonionic water-soluble contrast as a single exam dose. Usi ng automated exposure control and adjustment of the mA and/or kV according to patient size, radiation dose was kept as low as reasonably achievable to obtain optimal diagnostic quality images. DICOM fo rmat image data is available electronically for review and comparison. FINDINGS: Nasopharynx: The nasopharyngeal airway has a normal configuration. No mucosal thickening or mass is seen. Oropharynx: The intrinsic muscles of the tongue are symmetric. The tonsillar pillars are intact. T he prevertebral soft tissues are not thickened. Larynx: The supraglottic, glottic, and infraglottic structures are intact. Parapharyngeal: The parapharyngeal space is intact. Salivary Glands: The parotid and submandibular glands are intact. Lymph Nodes: No enlarged or necrotic-appearing nodes. Thyroid: Homogeneous enhancement without evidence of nodule. Bones: There is a healed fracture of the medial left third rib at the costovertebral junction with b ridging callus. Abnormal appearance to the left manubrium with fragmented appearance suggesting multi ple fractures or permeative destruction. There is no bridging callus. There is moderate heterogeneous density soft tissue swelling anterior to the left manubrium extending into the left pectoralis muscl e. Soft tissue swelling measures up to 2 cm in thickness. Other: Right pleural effusion extending to the mid chest measuring 1.67. CONCLUSION: 1. Changed appearance to the fracture of the left manubrium when compared to 07/26/2017; there is inc reased fragmentation and increased soft tissue thickening anteriorly. No bridging callus seen. There is also some fluid density between the bony fragments suggesting either fluid or abscess. 2. Old healed fracture medial left third rib. 3. No focal abnormalities in the soft tissues of the neck. Electronically signed by: Jaswinder Mckeon MD 08/27/2017 6:13 PM EDT
--- NOTE | 2017-08-27 19:28 | P.PNPOD ---
Subjective Interval history: Patient seen bedside. States she has been trying to ambulate on the right foot , she feels throbbing at times but is happy to see that she is able to put pressure on it. Physical Exam Vital signs: Vital Signs 08/26/17 20:00 08/27/17 00:00 08/27/17 04:00 Temperature 97.3 F L 97.9 F 98.7 F Pulse Rate 81 84 74 Respiratory Rate 18 18 Blood Pressure 128/82 116/76 113/74 Pulse Oximetry 100 100 97 08/27/17 08:00 08/27/17 12:00 08/27/17 16:00 Temperature 97.7 F 97.6 F 97.9 F Pulse Rate 71 81 72 Respiratory Rate 18 Blood Pressure 148/78 H 109/65 131/89 Pulse Oximetry 100 96 99 Intake & Output 08/27/17 08/27/17 08/28/17 06:59 18:59 06:59 Intake Total 1050 / 1050 920 / 920 Output Total 2550 / 2550 Balance -1500 / -1500 920 / 920 Weight 52.2 kg Intake: IV 200 / 200 Maxipime Inj 2,000 MG In NS Inj 100 / 100 100 ML @ 200 mls/hr IV.SIG Q24H [facility] Rx#:[id number] Cubicin Inj 300 MG In NS Inj 100 / 100 100 ML @ 200 mls/hr IV.SIG Q48H [facility] Rx#:[id number] Oral 1050 / 1050 720 / 720 Output: Urine 2550 / 2550 Other: # Voids 4 Date of Last Bowel Movement 08/24/17 # Bowel Movements 0 Narrative: Incision to right first metatarsal with skin well coapted and sutures intact. No surrounding erythema noted. No drainage upon compression. DP PT palpable. Capillary refill time to amputation site in digits 2 through 5 intact. Medications and Allergies Active Medications: Active Medications Acetaminophen (Tylenol) 650 mg PO Q4H PRN PRN Reason: Temp > 100.4 Al Hydroxide/Mg Hydroxide (Milk Of Magnesia Liq) 30 ml PO Q12H PRN PRN Reason: Mild Constipation Aspirin (Aspirin) 325 mg PO DAILY [facility] Last Admin: 08/27/17 08:32 Dose: 325 mg Bisacodyl (Dulcolax Supp) 10 mg RECTAL DAILY PRN PRN Reason: SEVERE CONSITIPATION Gabapentin (Neurontin) 100 mg PO BID [facility] Last Admin: 08/27/17 08:32 Dose: 100 mg Cefepime HCl 2,000 mg/ Sodium (Chloride) 100 mls @ 200 mls/hr IV.SIG Q24H [facility] Last Infusion: 08/27/17 09:02 Dose: Infused Daptomycin 300 mg/ Sodium (Chloride) 100 mls @ 200 mls/hr IV.SIG Q48H [facility] Last Infusion: 08/27/17 17:25 Dose: Infused Lactobacillus Acidophilus (Lactinex) 1 tab PO BID [facility] Last Admin: 08/27/17 08:31 Dose: 1 tab Lactulose (Lactulose Liq) 30 ml PO DAILY PRN PRN Reason: SEVERE CONSITIPATION Naloxone HCl (Narcan Inj) 0.4 mg IV.PUSH UNSCH PRN PRN Reason: SEE LABEL COMMENTS Nicotine (Habitrol 21 Mg Patch.24 Hr) 1 patch T-DERMAL DAILY [facility] Last Admin: 08/27/17 08:32 Dose: 1 patch Ondansetron HCl (Zofran Inj) 4 mg IV.PUSH Q6H PRN PRN Reason: NAUSEA OR VOMITING Last Admin: 08/24/17 13:07 Dose: 4 mg Oxycodone/Acetaminophen (Percocet 5/325 Mg) 1 tab PO Q4H PRN PRN Reason: PAIN SCALE 3 TO 5 Oxycodone/Acetaminophen (Percocet 10/325 Mg) 1 tab PO Q4H PRN PRN Reason: PAIN SCALE 6 TO 10 Last Admin: 08/27/17 17:31 Dose: 1 tab Senna/Docusate Sodium (Lori-Colace) 1 tab PO BID [facility] Last Admin: 08/27/17 08:31 Dose: Not Given Sennosides (Senokot) 17.2 mg PO Q12H PRN PRN Reason: Moderate Constipation Temazepam (Restoril) 15 mg PO HS PRN PRN Reason: INSOMNIA Last Admin: 08/26/17 21:39 Dose: 15 mg Allergies Allergy/AdvReac Type Severity Reaction Status Date / Time No Known Allergies Allergy Unverified 08/26/17 09:48 Home Medications Medication Instructions Recorded Confirmed Type No Known Home Medications 08/20/17 08/20/17 History Results - Labs CBC & Chem 7: 08/23/17 09:00 08/27/17 07:18 Laboratory Results - last 24 hr 08/27/17 07:18 Sodium 142 Potassium 4.8 Chloride 108 H Carbon Dioxide 25.1 Anion Gap 9 BUN 28 H Creatinine 1.26 H Estimated GFR 49 L Random Glucose 72 L Calcium 8.8 Random Vancomycin 12.0 - Imaging Impressions Soft Tissue Neck CT 08/27/17 00:00 CONCLUSION: 1. Changed appearance to the fracture of the left manubrium when compared to ; there is increased fragmentation and increased soft tissue thickening anteriorly. No bridging callus seen. There is also some fluid density between the bony fragments suggesting either fluid or abscess. 2. Old healed fracture medial left third rib. 3. No focal abnormalities in the soft tissues of the neck. - Procedures 08/23 right great toe hallux amputation with Dr. Too Piña Assessment and Plan - Assessment (1) Acute osteomyelitis of toe Code(s): M86.179 - Other acute osteomyelitis, unspecified ankle and foot Status: Acute (2) Cellulitis Code(s): L03.90 - Cellulitis, unspecified Status: Acute (3) Abscess of skin and subcutaneous tissue Code(s): L02.91 - Cutaneous abscess, unspecified Status: Acute - Plan 32-year-old female status post right hallux amputation with Dr. Piña Patient examined evaluated with all questions answered Dressing applied to right foot consisting of Xeroform, 4 x 4's, Yannick and Nael Limited weightbearing in postop shoe to right foot Will follow the patient's in-house as she is to be in house for IV antibiotics (1) Acute osteomyelitis of toe Qualifiers: Laterality: right Qualified Code(s): M86.171 - Other acute osteomyelitis, right ankle and foot (2) Cellulitis Qualifiers: Site of cellulitis: trunk Site of cellulitis of trunk: chest wall Qualified Code(s): L03.313 - Cellulitis of chest wall (3) Abscess of skin and subcutaneous tissue Qualifiers: Site of cutaneous abscess: extremity Site of cutaneous abscess of extremity: foot Laterality: right Qualified Code(s): L02.611 - Cutaneous abscess of right foot
--- NOTE | 2017-08-28 10:34 | P.DS ---
Date of admission: 08/20/17 14:03 Primary care physician: No Primary Care Physician Brief History from admission: 32-year-old female with history of IVDU, right great toe osteomyelitis and previously admitted to [place] on July 25, 2017, seen by podiatry and underwent incision and drainage along with debridement of right great toe osteomyelitis July 27, 2017, as well as infectious disease specialist will have patient on vancomycin and cefepime for bacteremia, skin abscesses and osteomyelitis however patient signed AMA then, came to the ED today for evaluation of painful right great toe and multiple abscesses. Patient has not had any follow-up after signing AMA last month. She now complaining of anterior left chest abscess and significant right great toe pain rated over 10 in intensity. Patient reports subjective fever. She continue use of IVDU. DS: Diagnosis - Discharge Diagnosis (1) Acute osteomyelitis of toe Status: Acute Diagnosis: Principal (2) Abscess of skin and subcutaneous tissue Status: Acute Diagnosis: Principal (3) Cellulitis Status: Acute Diagnosis: Principal (4) IVDU (intravenous drug user) Status: Chronic Diagnosis: Secondary DS: Summary Hospital Course: Patient left AGAINST MEDICAL ADVICE overnight These are the events leading up to patient leaving AGAINST MEDICAL ADVICE These are the medical issues addressed during this hospitalization: Right great toe osteomyelitis Status post vancomycin and Zosyn in ED 1, continue cefepime IV, vancomycin has been discontinued due to acute renal failure and started on IV Cubicin due to MRSA Status post operative day #3 right great toe amputation and will need wound care and postop care for 10 days post surgery for wound to heal. Change pain medication to Percocet as needed for pain from [place]. Add low-dose gabapentin. Discussed with Dr. Aguilera. Discussed with patient the risks of leaving AGAINST MEDICAL ADVICE and having worsening of surgical wound and infection that could lead to . She voiced understanding and states that she likely will need to leave the hospital to attend her friend's family's . Skin abscesses Anterior left chest abscess Cellulitis Soft tissue ultrasound noted without any evidence of drainable abscess in the past Due to patient's complaint of increasing pain, will obtain a CT of the neck soft tissue and chest along with left MRI of the shoulder to rule out any underlying early abscess or septic joint findings. Continue treatment with Cubicin and cefepime will need at least 4-6 weeks. ID consultation appreciated per Dr. Dontfraid. Monitor culture report IVDU Cessation counseling HIV negative Tobacco abuse Tobacco counseling cessation provided Continue nicotine patch Acute renal failure may be due to vancomycin will discontinue antibiotic Worsening creatinine since admission however now is improving. Avoid all nephrotoxic drug Nephrology consultation to be placed Obtain renal ultrasound which was negative., IV vancomycin was discontinued. hyperkalemia -Kayexalate, resolved. DVT prophylaxis aspirin - Time Spent with Patient Total time spent providing and/or coordinating discharge services: Less than 30 minutes - Quality: VTE Deep Vein Thrombosis/Pulmonary Embolism Present on Admission: No Exam Vital signs: Vital Signs 08/27/17 12:00 08/27/17 16:00 Temperature 97.6 F 97.9 F Pulse Rate 81 72 Respiratory Rate 18 18 Blood Pressure 109/65 131/89 Pulse Oximetry 96 99 Intake & Output 08/27/17 08/28/17 08/28/17 18:59 06:59 18:59 Intake Total 920 / 920 Balance 920 / 920 Intake: IV 200 / 200 Maxipime Inj 2,000 MG In NS Inj 100 / 100 100 ML @ 200 mls/hr IV.SIG Q24H [facility] Rx#:[id number] Cubicin Inj 300 MG In NS Inj 100 / 100 100 ML @ 200 mls/hr IV.SIG Q48H [facility] Rx#:[id number] Oral 720 / 720 Other: # Voids 4 Date of Last Bowel Movement 08/24/17 Results Procedures completed during hospitalization: 08/23 right great toe hallux amputation with Dr. Too Aguilera Completed studies during hospitalization: Pending at discharge 08/23/17 07:21 Surgical [PTH] Routine - Impressions ITS Impressions Chest X-Ray 08/20/17 10:19 CONCLUSION: 1. Resolution of mild bilateral airspace disease 2. No evidence of acute cardiopulmonary process. Foot X-Ray 08/20/17 10:23 CONCLUSION: Osteomyelitis proximal phalanx great toe progressed in the interval. Soft Tissue Ultrasound 08/21/17 00:00 CONCLUSION: 1. Thickness changes involving the chest wall without evidence of drainable abscess. Abdomen/Bladder Ultrasound 08/23/17 00:00 CONCLUSION: 1. Negative renal sonogram. Soft Tissue Neck CT 08/27/17 00:00 CONCLUSION: 1. Changed appearance to the fracture of the left manubrium when compared to ; there is increased fragmentation and increased soft tissue thickening anteriorly. No bridging callus seen. There is also some fluid density between the bony fragments suggesting either fluid or abscess. 2. Old healed fracture medial left third rib. 3. No focal abnormalities in the soft tissues of the neck. Discharge Plan - Discharge Disposition Patient Disposition: Left Against Medical Advice - Discharge Order Discharge Orders: AMA Discharge (Routine); Ordered 08/28/17 Ordered By: Marnie Chang - Physicians Team Primary Care Provider: Primary Care Niki Alejandro Attending Provider: Brionna Beck Other Providers: Jesse Tello MD ; Too Aguilera DPM ; Jaspreet Coon MD
== END 2017-08-27 20:10 | disposition left against medical advice (07) ==
LOC: NEPD 09:46 → NEDA 14:03 → N04 17:07
PROVIDERS: ADMIT Family Medicine; ATTEND Family Medicine

== ENCOUNTER 2018-04-04 17:13 | Inpatient (IN) ==
--- NOTE | 2018-04-04 21:39 | ED ---
HPI General Chief complaint: Chest Pain Stated complaint: Chest Pain/SOB Time Seen by Provider: 04/04/18 21:26 Source: patient Mode of arrival: ambulatory Limitations: no limitations History of Present Illness HPI narrative: Patient is a 32-year-old female who presents to the emergency room with complaints of pain all over her body. Patient reports that one week ago, she fell. Reports that she hit the right side of her head and landed on her shoulder. Reports "I don't know why I fell, I just fell." Reports that she woke up in a pool of blood. She did not seek medical attention but has been having pains all over her body. Reports that she has been having kidney pain which radiates to her chest. Her left side of her chest is throbbing and she is feeling short of breath. Reports that she has not been able to move her right shoulder since her fall one week ago due to the pain. She has not taken any medication to help with her symptoms. Patient denies having any medical problems, reports that she is not using an IV drugs. She smokes marijuana occasionally to help with her pains. Related Data Home Medications Medication Instructions Recorded Confirmed albuterol sulfate 2 puff INHALATION Q4-6H PRN 01/21/18 04/04/18 Allergies Allergy/AdvReac Type Severity Reaction Status Date / Time No Known Allergies Allergy Verified 01/21/18 11:21 Review of Systems ROS: all other systems reviewed are negative [facility] Medical History Medical History Amputated great toe of right foot (Acute) Asthma (Acute) Osteomyelitis (Acute) Surgical History Surgical History Status post wrist surgery (Acute) Social History Social History Substance History: No History of Abuse Second Hand Smoke Exposure: Yes Smoking Status: Current every day smoker Tobacco Type: Cigarettes How Often Do You Have a Drink Containing Alcohol: 2 to 3 times a week Recent Travel in [facility] within the Last 8 Weeks: No Recent Out of Country Travel within the Last 8 Weeks: No Immunization History Tetanus Immunization: <5 Years Exam Narrative Exam Narrative: GENERAL: moderate distress SKIN: Focused skin assessment warm/dry. HEAD: Atraumatic. Normocephalic. EYES: Pupils equal and round. No scleral icterus. No injection or drainage. ENT: No nasal bleeding or discharge. Mucous membranes pink and moist. NECK: Trachea midline. No JVD. CARDIOVASCULAR: Regular rate and rhythm. No murmur appreciated. Patient with point tenderness under her right axilla RESPIRATORY: No accessory muscle use. Clear to auscultation. Breath sounds equal bilaterally. GASTROINTESTINAL: Abdomen soft, non-tender, nondistended. Hepatic and splenic margins not palpable. MUSCULOSKELETAL: No obvious deformities. No clubbing. No cyanosis. No edema. Patient with no obvious deformities, she is unable to range of motion her right shoulder. Pulses are intact, no neurovascular compromise. NEUROLOGICAL: Awake and alert. No obvious cranial nerve deficits. Motor grossly within normal limits. Normal speech. PSYCHIATRIC: Agitated and anxious mood and affect; insight and judgment normal. Course Initial Documented Vital Signs Temperature 99.5 F 04/04/18 17:45 Pulse Rate 118 H 04/04/18 17:45 Respiratory Rate 17 04/04/18 17:45 Blood Pressure 117/78 04/04/18 17:45 Pulse Oximetry 97 04/04/18 17:45 Last Documented Vital Signs Temperature 99.5 F 04/04/18 17:45 Pulse Rate 118 H 04/04/18 17:45 Respiratory Rate 17 04/04/18 17:45 Blood Pressure 117/78 04/04/18 17:45 Pulse Oximetry 97 04/04/18 17:45 Critical Care Time Critical Care Time: Yes Total Critical Care Time: 30 Attestation: Aggregate critical care time was 30 minutes. Time to perform other separately billable procedures was not included in the critical care time. My time did not include minutes spent treating any other patients simultaneously or on activities that did not directly contribute to the patient's treatment. The services I provided to this patient were to treat and/or prevent clinically significant deterioration that could result in: , decompensation, deterioration I provided critical care services requiring my management, as noted below: Chart data review, documentation time, medication orders and management, vital sign assessments/reviewing monitor data, ordering and reviewing lab tests, ordering and interpreting/reviewing x-rays and diagnostic studies, care of the patient and discussion of the patient with the admitting physicians. Medical Decision Making MDM Narrative Medical decision making narrative: During the course of the patients emergency department visit, the patients history, examination, and differential diagnosis were reviewed with the patient. The patient was placed on a panel monitor with oximetry and frequent blood pressure monitoring. The patient had an IV access obtained and blood work sent for analysis. The patient was initially provided with IVF. Trauma scans were ordered. WBC 15.6, hemoglobin 12.5, hematocrit 36.2, platelets 474 sodium 133, potassium 3.4, chloride 93, bun 10, cr 0.56, glucose 108 ct of head: no acute intracranial abnormalities ct of neck: no acute findings cta: neg for PE, abnormal complex presumed fluid collection in the paravertebral region of the lower thoraci spine centered around a severe compression deformity at the lower thoracic spine, prob T8. There is a loculated right sided pleural effusion - cannot exclude infection. Would recommend MRI of the thoracic spine to assess for discitis or osteomyelities Patient has multiple abscesses to her extremities, patient denies any IV drug abuse though she does have track [place]. She will require admission to the hospital for treatment of osteomyelitis/discitis. She was given vanco and zosyn. Medical Screen Exam Complete: Yes Emergency Medical Condition: Yes Lab Data Result diagrams: 04/04/18 21:55 04/04/18 21:55 POC Results POC Urine Results Negative Lab Results 04/04/18 04/04/18 04/04/18 Range/Units 21:55 21:55 21:55 WBC 15.6 H (4.0-11.0) th/mm3 RBC 4.22 (4.00-5.30) mil/mm3 Hgb 12.5 (11.6-15.3) gm/dL Hct 36.2 (35.0-46.0) % MCV 85.8 (80.0-100.0) fL MCH 29.6 (27.0-34.0) pg MCHC 34.5 (32.0-36.0) % RDW 14.2 (11.6-17.2) % Plt Count 474 H (150-450) th/mm3 MPV 7.6 (7.0-11.0) fL Neut % (Auto) 81.2 H (16.0-70.0) % Lymph % (Auto) 9.4 (9.0-44.0) % [place] % (Auto) 8.3 H (0.0-8.0) % Eos % (Auto) 0.6 (0.0-4.0) % Baso % (Auto) 0.5 (0.0-2.0) % Neut # (Auto) 12.6 H (1.8-7.7) th/mm3 Lymph # (Auto) 1.5 (1.0-4.8) th/mm3 [place] # (Auto) 1.3 H (0.0-0.9) th/mm3 Eos # (Auto) 0.1 (0.0-0.4) th/mm3 Baso # (Auto) 0.1 (0.0-0.2) th/mm3 WBC Differential . Differential Comment Auto diff final PT 10.8 (9.8-11.6) sec INR 1.1 Ratio APTT 38.4 H (23.4-31.7) sec Sodium 133 L (136-145) meq/L Potassium 3.4 L (3.5-5.1) meq/L Chloride 93 L (98-107) meq/L Carbon Dioxide 31.3 (21.0-32.0) meq/L Anion Gap 9 (5-15) meq/L BUN 10 (7-18) mg/dL Creatinine 0.56 (0.50-1.00) mg/dL Estimated GFR Greater than 89 (>89) mL/min Random Glucose 108 H (74-106) mg/dL Calcium 8.7 (8.5-10.1) mg/dL Troponin I (0.02-0.05) ng/mL Beta HCG, Quant Less than 1 (0-5) mIU/mL Urine Color (Yellw/Straw) Urine Clarity (Clear) Urine pH (5.0-8.5) Ur Specific [place] (1.002-1.035) Urine Protein (Neg-Trace) mg/dL Urine Glucose (UA) (Negative) mg/dL Urine Ketones (Negative) mg/dL Urine Occult Blood (Negative) Urine Nitrate (Negative) Urine Bilirubin (Negative) Urine Urobilinogen (Less than 2) mg/dL Ur Leukocyte Esterase (Negative) Urine RBC (0-3) /hpf Urine WBC (0-5) /hpf Ur Squamous Epith Cells (0-5) /hpf Hyaline Casts (0-3) /lpf Urine Mucus (Occasional) /lpf Micro UA Comment Ur Microscopic Review Urine Culture Comments Urine Opiates Screen (Neg) Ur Barbiturates Screen (Neg) Ur Amphetamines Screen (Neg) U Benzodiazepines Scrn (Neg) Urine Cocaine Screen (Neg) U Cannabinoids Screen (Neg) 04/04/18 04/04/18 04/04/18 Range/Units 21:55 22:40 22:40 WBC (4.0-11.0) th/mm3 RBC (4.00-5.30) mil/mm3 Hgb (11.6-15.3) gm/dL Hct (35.0-46.0) % MCV (80.0-100.0) fL MCH (27.0-34.0) pg MCHC (32.0-36.0) % RDW (11.6-17.2) % Plt Count (150-450) th/mm3 MPV (7.0-11.0) fL Neut % (Auto) (16.0-70.0) % Lymph % (Auto) (9.0-44.0) % [place] % (Auto) (0.0-8.0) % Eos % (Auto) (0.0-4.0) % Baso % (Auto) (0.0-2.0) % Neut # (Auto) (1.8-7.7) th/mm3 Lymph # (Auto) (1.0-4.8) th/mm3 [place] # (Auto) (0.0-0.9) th/mm3 Eos # (Auto) (0.0-0.4) th/mm3 Baso # (Auto) (0.0-0.2) th/mm3 WBC Differential Differential Comment PT (9.8-11.6) sec INR Ratio APTT (23.4-31.7) sec Sodium (136-145) meq/L Potassium (3.5-5.1) meq/L Chloride (98-107) meq/L Carbon Dioxide (21.0-32.0) meq/L Anion Gap (5-15) meq/L BUN (7-18) mg/dL Creatinine (0.50-1.00) mg/dL Estimated GFR (>89) mL/min Random Glucose (74-106) mg/dL Calcium (8.5-10.1) mg/dL Troponin I Less than 0.02 L (0.02-0.05) ng/mL Beta HCG, Quant (0-5) mIU/mL Urine Color Yellow (Yellw/Straw) Urine Clarity Hazy H (Clear) Urine pH 6.0 (5.0-8.5) Ur Specific [place] 1.018 (1.002-1.035) Urine Protein Negative (Neg-Trace) mg/dL Urine Glucose (UA) Negative (Negative) mg/dL Urine Ketones 20 (Negative) mg/dL Urine Occult Blood Negative (Negative) Urine Nitrate Negative (Negative) Urine Bilirubin Negative (Negative) Urine Urobilinogen 2.0 H (Less than 2) mg/dL Ur Leukocyte Esterase Negative (Negative) Urine RBC 1 (0-3) /hpf Urine WBC 3 (0-5) /hpf Ur Squamous Epith Cells 7 (0-5) /hpf Hyaline Casts 1 (0-3) /lpf Urine Mucus Few H (Occasional) /lpf Micro UA Comment Culture not ind Ur Microscopic Review Not Reportable Urine Culture Comments Culture not ind Urine Opiates Screen Pos H (Neg) Ur Barbiturates Screen Neg (Neg) Ur Amphetamines Screen Pos H (Neg) U Benzodiazepines Scrn Neg (Neg) Urine Cocaine Screen Pos H (Neg) U Cannabinoids Screen Pos H (Neg) Imaging Data Radiologist's impression: Shoulder X-Ray 04/04/18 21:31 CONCLUSION: Distal right clavicle fracture Abdomen/Pelvis CT 04/04/18 21:32 CONCLUSION: 1. Severe compression fracture at T7 with prominent prevertebral hemorrhage which would be discussed on CT pulmonary angiogram. Fracture also T9. 2. Small amount of pelvic free fluid. Cervical Spine CT 04/04/18 21:32 CONCLUSION: 1. No acute findings on cervical spine CT. Chest CTA 04/04/18 21:32 CONCLUSION: 1. Negative for pulmonary embolus. 2. Abnormal complex presumed fluid collection in the paravertebral region of the lower thoracic spine centered around a severe compression deformity at the lower thoracic spine, probably T8. There is also a loculated right pleural effusion. Cannot exclude infection. Would recommend MRI of the thoracic spine to assess for discitis or osteomyelitis. 3. Small free-flowing left effusion. Subsegmental basilar airspace disease, right greater than left. 4. Prior left manubrial fracture with partial nonunion. Chest X-Ray 04/04/18 21:32 CONCLUSION: Right basilar infiltrate. Head CT 04/04/18 21:32 CONCLUSION: 1. No acute intracranial abnormalities. . . Discharge Plan Discharge Disposition Patient Disposition: ED Admit(ED Internal Use Only) Discharge Condition Condition: Fair Discharge Details Diagnosis: Osteomyelitis, Fracture of clavicle Physicians Team ED Provider: Ariana Sumner Rxs /Orders / Referrals /Forms Prescriptions: No Action albuterol sulfate 90 mcg/actuation Hfa Aerosol Inhaler 2 puff INHALATION Q4-6H PRN (Reason: Shortness Of Breath) RF: 0 Discharge Instructions Patient Printed Instructions: Chest Pain (ED) Status ED Status: Pending Admission
[2018-04-04] MEDS ORDERED: Sod Chloride 0.9% Inj 1,000 ML IV.CONT SCH (21:45)
[2018-04-04] MEDS ORDERED: Sod Chloride 0.9% Inj 1,000 ML IV.SIG SCH (22:00)
[2018-04-04 22:43] LABS: Baso # (Auto) 0.1 th/mm3 (0.0-0.2); Baso % (Auto) 0.5 % (0.0-2.0); Eos # (Auto) 0.1 th/mm3 (0.0-0.4); Eos % (Auto) 0.6 % (0.0-4.0); Hematocrit 36.2 % (35.0-46.0); Hemoglobin 12.5 gm/dL (11.6-15.3); Lymph # (Auto) 1.5 th/mm3 (1.0-4.8); Lymph % (Auto) 9.4 % (9.0-44.0); Mean Corpuscular HGB Conc 34.5 % (32.0-36.0); Mean Corpuscular Hemoglobin 29.6 pg (27.0-34.0); Mean Corpuscular Volume 85.8 fL (80.0-100.0); Mean Platelet Volume 7.6 fL (7.0-11.0); Mono # (Auto) 1.3 th/mm3 (0.0-0.9); Mono % (Auto) 8.3 % (0.0-8.0); Neut # (Auto) 12.6 th/mm3 (1.8-7.7); Neut % (Auto) 81.2 % (16.0-70.0); Platelet Count 474 th/mm3 (150-450); Red Blood Count 4.22 mil/mm3 (4.00-5.30); Red Cell Distribution Width 14.2 % (11.6-17.2); White Blood Count 15.6 th/mm3 (4.0-11.0)
--- NOTE | 2018-04-04 22:53 | CT ---
EXAM DATE: 04/04/2018 10:46 PM EST AGE/SEX: 32 years / Female INDICATIONS: Trauma; fall. CLINICAL DATA: This is the patient's initial encounter. Patient reports that signs and symptoms have been present for 1 day and indicates a pain score of 7/10. MEDICAL/SURGICAL HISTORY: None. None. RADIATION DOSE: 19.36 CTDI (mGy) COMPARISON: No prior exams available for comparison. TECHNIQUE: Contiguous axial images were obtained using helical multirow detector technique. The vol umetric data was post-processed with multiplanar reconstruction in oblique axial, sagittal, and coron al planes. Using automated exposure control and adjustment of the mA and/or kV according to patient s ize, radiation dose was kept as low as reasonably achievable to obtain optimal diagnostic quality susan ges. DICOM format image data is available electronically for review and comparison. FINDINGS: There is no acute fracture or spondylolisthesis. No prevertebral soft tissue swelling. No significant canal or foraminal stenosis. CONCLUSION: 1. No acute findings on cervical spine CT. Electronically signed by: Surinder Goldstein MD Board Certified Radiologist 04/04/2018 10:52 PM EST
[2018-04-04 22:55] LABS: Activated Partial Thrombo Time 38.4 sec (23.4-31.7); INR 1.1 Ratio; Prothrombin Time 10.8 sec (9.8-11.6)
--- NOTE | 2018-04-04 22:55 | CT ---
EXAM DATE: 04/04/2018 10:44 PM EST AGE/SEX: 32 years / Female INDICATIONS: Trauma; fall. CLINICAL DATA: This is the patient's initial encounter. Patient reports that signs and symptoms have been present for 1 day and indicates a pain score of 7/10. MEDICAL/SURGICAL HISTORY: None. None. RADIATION DOSE: 56.35 CTDI (mGy) [place] [facility] [place]. . TECHNIQUE: CT of the head without contrast. Using automated exposure control and adjustment of the mA and/or kV according to patient size, radiation dose was kept as low as reasonably achievable to ob tain optimal diagnostic quality images. DICOM format image data is available electronically for revi ew and comparison. FINDINGS: Cerebrum: The ventricles are normal for age. No evidence of midline shift, mass lesion, hemorrhage or acute infarction. No extraaxial fluid collections are seen. Posterior Fossa: The cerebellum and brainstem are intact. The 4th ventricle is midline. The cerebe llopontine angle is unremarkable. Extracranial: The visualized portion of the orbits is intact. Skull: The calvaria is intact. No evidence of skull fracture. CONCLUSION: 1. No acute intracranial abnormalities. . . Electronically signed by: Surinder Goldstein MD Board Certified Radiologist 04/04/2018 10:54 PM EST
[2018-04-04 22:57] LABS: Anion Gap 9 meq/L (5-15); Blood Urea Nitrogen 10 mg/dL (7-18); Calcium 8.7 mg/dL (8.5-10.1); Carbon Dioxide 31.3 meq/L (21.0-32.0); Chloride 93 meq/L (98-107); Glomerular Filtration Rate Greater Than 89 mL/min (>89); Glucose,Random 108 mg/dL (74-106); Potassium 3.4 meq/L (3.5-5.1); Sodium 133 meq/L (136-145)
--- NOTE | 2018-04-04 23:04 | CT ---
EXAM DATE: 04/04/2018 10:53 PM EST AGE/SEX: 32 years / Female INDICATIONS: Trauma; fall. CLINICAL DATA: This is the patient's initial encounter. Patient reports that signs and symptoms have been present for 1 day and indicates a pain score of 7/10. MEDICAL/SURGICAL HISTORY: None. None. ORAL CONTRAST: No oral contrast ingested. RADIATION DOSE: 10.12 CTDI (mGy) COMPARISON: [facility] [place], [place] ABDOMEN & PELVIS W CONTRAST, 09/11/2015. . TECHNIQUE: Multiple contiguous axial images were obtained through the abdomen and pelvis following b olus infusion of 98 ml Omnipaque 350 (iohexol) nonionic water-soluble contrast as a cumulative dose for multiple exams. No oral contrast ingested. Using automated exposure control and adjustment of t he mA and/or kV according to patient size, radiation dose was kept as low as reasonably achievable to obtain optimal diagnostic quality images. DICOM format image data is available electronically for r eview and comparison. FINDINGS: Lower Lungs: Small right pleural effusion. Right basilar density. Liver: The liver has a homogeneous density without space-occupying lesion. There is no dilation of th e biliary tree. Spleen: Homogeneous density without enlargement. Pancreas: Unremarkable without mass or calcification. Kidneys: Normal in size and shape. No evidence of mass or hydronephrosis. Adrenal Glands: Unremarkable. Aorta: The aorta and proximal iliac vessels are grossly unremarkable without aneurysmal dilation. Bowel/Mesentery: The bowel loops are grossly unremarkable. Copious amount stool in the large bowel. Small amount of pelvic free fluid. Abdominal Wall: Intact. Retroperitoneum: No evidence of adenopathy in the retrocrural, para-aortic, or deep pelvic regions. Bladder: Contours are smooth. Reproductive Organs: No abnormal masses or calcifications seen. Small amount of pelvic free fluid. Inguinal: The inguinal region is unremarkable without evidence of adenopathy. Bony Structures: Severe compression fracture of T7 and mild superior endplate fracture of T9 vertebr al bodies. Prominent prevertebral hemorrhage seen anterior to T7. This displaces the descending thora cic aorta and mediastinum anteriorly. CONCLUSION: 1. Severe compression fracture at T7 with prominent prevertebral hemorrhage which would be discussed on CT pulmonary angiogram. Fracture also T9. 2. Small amount of pelvic free fluid. Electronically signed by: Kenn Cole MD Board Certified Radiologist 04/04/2018 11:02 PM EST
--- NOTE | 2018-04-04 23:09 | CT ---
EXAM DATE: 04/04/2018 10:49 PM EST AGE/SEX: 32 years / Female INDICATIONS: Trauma; fall. CLINICAL DATA: This is the patient's initial encounter. Patient reports that signs and symptoms have been present for 1 day and indicates a pain score of 7/10. MEDICAL/SURGICAL HISTORY: None. None. RADIATION DOSE: 8.60 CTDI (mGy) [place] [facility] [place]AST[place] 04/04/2018. . TECHNIQUE: Volumetric scanning was performed using a multi-row detector CT scanner during bolus infu pritesh of 98 ml Omnipaque 350 (iohexol) nonionic water-soluble contrast as a cumulative dose for multi ple exams. The data was post processed with a variety of visualization algorithms including full volu me maximum intensity projection and sliding thin slab reformation. Using automated exposure control and adjustment of the mA and/or kV according to patient size, radiation dose was kept as low as reaso nably achievable to obtain optimal diagnostic quality images. DICOM format image data is available e lectronically for review and comparison. FINDINGS: Comparison is CTA chest from July 2017. Compression fractures in the lower thoracic spine, probably T 8 and T10 are stable, severe at T8 and moderate at T10 without significant retropulsion. There is a 6.4 cm diameter fluid collection centered around the compression deformity at T8. Small lo cules of air anteriorly are believed to be within the esophagus. Cannot exclude a paravertebral absce ss. There is also loculated fluid in the right pleural space and a minimal free-flowing small left pl eural effusion. Cannot exclude empyema. No filling defects are seen in the pulmonary arteries to suggest pulmonary embolic disease. Mildly en larged prevascular lymph nodes are noted. There is also fracture of the left manubrium with partial n onunion and some surrounding soft tissue. CONCLUSION: 1. Negative for pulmonary embolus. 2. Abnormal complex presumed fluid collection in the paravertebral region of the lower thoracic spin e centered around a severe compression deformity at the lower thoracic spine, probably T8. There is a lso a loculated right pleural effusion. Cannot exclude infection. Would recommend MRI of the thoracic spine to assess for discitis or osteomyelitis. 3. Small free-flowing left effusion. Subsegmental basilar airspace disease, right greater than left. 4. Prior left manubrial fracture with partial nonunion. Electronically signed by: Surinder Goldstein MD Board Certified Radiologist 04/04/2018 11:08 PM EST
[2018-04-04] MEDS ORDERED: Piperacil/Tazo 3.375 GM Premix 3.375 GM/50 ML PIGGYBACK IV.SIG ONE (23:17)
[2018-04-04] MEDS ORDERED: Vancomycin Inj 1,000 MG in Sodium Chlor 0.9% Inj 250 ML IV.SIG ONE (23:17)
--- NOTE | 2018-04-04 23:17 | XR ---
EXAM DATE: 04/04/2018 11:13 PM EST AGE/SEX: 32 years / Female INDICATIONS: Shortness of breath. CLINICAL DATA: This is the patient's initial encounter. Patient reports that signs and symptoms have been present for 1 day and indicates a pain score of 5/10. MEDICAL/SURGICAL HISTORY: None. None. [place] [facility] [place]. . FINDINGS: A single AP view of the chest demonstrates right basilar infiltrate. Heart normal in size. The cardio mediastinal contours are unremarkable. Osseous structures are intact. CONCLUSION: Right basilar infiltrate. Electronically signed by: Kenn Cole MD Board Certified Radiologist 04/04/2018 11:16 PM EST
--- NOTE | 2018-04-04 23:18 | XR ---
EXAM DATE: 04/04/2018 11:10 PM EST AGE/SEX: 32 years / Female INDICATIONS: Right shoulder pain, patient states she fell. CLINICAL DATA: This is the patient's initial encounter. Patient reports that signs and symptoms have been present for 1 week and indicates a pain score of 5/10. MEDICAL/SURGICAL HISTORY: None. None. COMPARISON: No prior exams available for comparison. FINDINGS: Views of the right shoulder demonstrates nondisplaced distal clavicle fracture. Humeral head intact. No dislocation.. No radiopaque foreign bodies seen. CONCLUSION: Distal right clavicle fracture Electronically signed by: Kenn Cole MD Board Certified Radiologist 04/04/2018 11:16 PM EST
[2018-04-04] MEDS ORDERED: Morphine Inj 4 MG/ML Vial IV.PUSH ONE (23:20)
[2018-04-04 23:21] LABS: Bilirubin,Urine Negative (Negative); Clarity,Urine Hazy (Clear); Color,Urine Yellow (Yellw/Straw); Glucose,Urine (UA) Negative (Negative); Hyaline Casts,Urine 1 /lpf (0-3); Leukocyte Esterase,Urine Negative (Negative); Mucus,Urine Few /lpf (Occasional); Nitrite,Urine Negative (Negative); Specific Gravity,Urine 1.018 (1.002-1.035); Squamous Epithelial Cell,Urine 7 /hpf (0-5)
[2018-04-04 23:26] LABS: Amphetamine Screen,Urine Pos (Neg); Barbiturate Screen,Urine Neg (Neg); Cannabinoid Screen,Urine Pos (Neg); Cocaine Screen,Urine Pos (Neg)
[2018-04-04 23:36] LABS: Opiate Screen,Urine Pos (Neg)
[2018-04-05] MEDS ORDERED: Bisacodyl 10 MG Supp RECTAL PRN (00:10)
[2018-04-05] MEDS ORDERED: Vancomycin Consult Pharmacy OTHER PRN ×2 (00:15→00:25)
[2018-04-05] MEDS: Acetaminophen 325 MG Tablet PO PRN ×3 (03:52→20:14)
[2018-04-05] MEDS: Piperacil/Tazo 3.375 GM Premix 3.375 GM/50 ML PIGGYBACK IV.SIG SCH ×4 (05:12→23:12)
--- NOTE | 2018-04-05 09:43 | P.CONNS ---
History of Present Illness Service: ED Primary Care Provider: No Primary Care Physician Chief Complaint: back pain History of Present Illness: 32yoF IVD user who fell last week and has back pain with right chest pain. Imaging shows a T7 / T9 compression with fluid near the lung. She is due for an MRI, remains neurologically intact except has sharp pain of the right shoulder, which also appears to be involved in the fall. [facility] - History History Provided By: Patient - Medical History Medical History: Medical History (Last Reviewed 04/04/18 @ 21:38 by Ariana Sumner) Amputated great toe of right foot Asthma Osteomyelitis - Surgical History Surgical History: Surgical History (Last Reviewed 04/04/18 @ 21:38 by Ariana Sumner) Status post wrist surgery - Tobacco History Second Hand Smoke Exposure: Yes Tobacco Use In Past 30 Days: Yes Smoking Status: Current every day smoker Tobacco Type: Cigarettes - Alcohol History How Often Do You Have a Drink Containing Alcohol: 2 to 3 times a week - Substance Use History Substance History: No History of Abuse - Travel History Recent Travel in the [place] Within the Last 8 Weeks: No Recent Travel Out of the Country Within the Last 8 Weeks: No - Immunization History Tetanus Immunization: <5 Years Medications and Allergies Active Medications: Active Medications Acetaminophen (Tylenol) 650 mg PO Q4H PRN PRN Reason: Temp > 100.4 Last Admin: 04/05/18 03:52 Dose: 650 mg Al Hydroxide/Mg Hydroxide (Milk Of Magnesia Liq) 30 ml PO Q12H PRN PRN Reason: Mild Constipation Bisacodyl (Dulcolax Supp) 10 mg RECTAL DAILY PRN PRN Reason: SEVERE CONSITIPATION Piperacillin/Tazobactam/Dextrose (Zosyn 3.375 Gm Premix) 3.375 gm in 50 mls @ 100 mls/hr IV.SIG Q6H [facility] Last Infusion: 04/05/18 05:38 Dose: Infused Vancomycin HCl 1,000 mg/ (Sodium Chloride) 250 mls @ 250 mls/hr IV.SIG Q12H [facility] Lactulose (Lactulose Liq) 30 ml PO DAILY PRN PRN Reason: SEVERE CONSITIPATION Miscellaneous Information ([facility] Ordered Lab Info) 0 each OTHER ONCE ONE Stop: 04/06/18 11:46 Ondansetron HCl (Zofran Inj) 4 mg IV.PUSH Q6H PRN PRN Reason: NAUSEA OR VOMITING Pharmacy Profile Note (Vancomycin Consult Pharmacy) 1 each OTHER UNSCH PRN PRN Reason: Pharmacy to dose Senna/Docusate Sodium (Lori-Colace) 1 tab PO BID [facility] Sennosides (Senokot) 17.2 mg PO Q12H PRN PRN Reason: Moderate Constipation Sodium Chloride (Ns Flush) 2 ml IV.FLUSH PRN PRN PRN Reason: FLUSH AFTER USING IV ACCESS Sodium Chloride (Ns Flush) 2 ml IV.FLUSH BID [facility] Sodium Chloride (Ns Flush) 2 ml IV.FLUSH PRN PRN PRN Reason: FLUSH AFTER USING IV ACCESS Allergies Allergy/AdvReac Type Severity Reaction Status Date / Time No Known Allergies Allergy Verified 01/21/18 11:21 Home Medications Medication Instructions Recorded Confirmed Type albuterol sulfate 2 puff INHALATION Q4-6H PRN 01/21/18 04/04/18 History Exam Vital signs: Vital Signs 04/04/18 17:45 04/05/18 00:02 04/05/18 00:03 Temperature 99.5 F Pulse Rate 118 H 106 H Respiratory Rate 17 16 16 Blood Pressure 117/78 122/67 Pulse Oximetry 97 97 04/05/18 03:44 04/05/18 04:25 04/05/18 05:43 Temperature 100.8 F H 99.1 F Pulse Rate 113 H 107 H Respiratory Rate 16 16 16 Blood Pressure 115/69 Pulse Oximetry 95 95 Intake & Output 04/04/18 04/05/18 04/05/18 18:59 06:59 18:59 Intake Total 2350 / 2350 Balance 2350 / 2350 Weight 58.967 kg Intake: IV 2350 / 2350 NS Inj 1,000 ML @ 1000 mls/hr 1000 / 1000 IV.CONT .Q1H [facility] Rx#:[id number] Zosyn 3.375 GM Premix 3.375 gm 100 / 100 In 50 ml @ 100 mls/hr IV.SIG Q6H [facility] Rx#:[id number] NS Inj 1,000 ML @ 1000 mls/hr 1000 / 1000 IV.SIG BOLUS [facility] Rx#:[id number] Vancomycin Inj 1,000 MG In NS 250 / 250 Inj 250 ML @ 250 mls/hr IV.SIG ONCE ONE Rx#:[id number] Other: # Voids 1 Narrative: A&O x 3 CN II-XII intact Motor 5/5 UE/LE except right shoulder limited due to pain C/o mid thoracic pain lying in bed Reflexes symmetric physiologic. Results - Laboratory Findings CBC and BMP: 04/04/18 21:55 04/04/18 21:55 Abnormal lab findings: Abnormal Labs 04/04/18 04/04/18 04/04/18 21:55 21:55 21:55 WBC 15.6 H Plt Count 474 H Neut % (Auto) 81.2 H Hanson % (Auto) 8.3 H Neut # (Auto) 12.6 H Hanson # (Auto) 1.3 H APTT 38.4 H Sodium 133 L Potassium 3.4 L Chloride 93 L Random Glucose 108 H Troponin I Urine Clarity Urine Urobilinogen Urine Mucus Urine Opiates Screen Ur Amphetamines Screen Urine Cocaine Screen U Cannabinoids Screen 04/04/18 04/04/18 04/04/18 21:55 22:40 22:40 WBC Plt Count Neut % (Auto) Hanson % (Auto) Neut # (Auto) Hanson # (Auto) APTT Sodium Potassium Chloride Random Glucose Troponin I Less than 0.02 L Urine Clarity Hazy H Urine Urobilinogen 2.0 H Urine Mucus Few H Urine Opiates Screen Pos H Ur Amphetamines Screen Pos H Urine Cocaine Screen Pos H U Cannabinoids Screen Pos H Assessment and Plan - Plan 32yoF with T7/T9 compression fractures, presumed osteo/discitis. MRI T-spine with contrast, as you have ordered. Please expedite (routine scans may take all day). Will follow.
[2018-04-05] MEDS: Vancomycin Inj 1,000 MG in Sodium Chlor 0.9% Inj 250 ML IV.SIG SCH ×2 (16:00→23:34)
[2018-04-05] MEDS: Morphine Sulfate Inj 2 MG/ML Vial IV.PUSH PRN ×2 (18:42→22:21)
--- NOTE | 2018-04-05 20:10 | ECG ---
Date Performed: 04/04/2018 Time Performed: 21:41:38 PTAGE: 32 years EKG: SINUS TACHYCARDIA MINIMAL ST DEPRESSION ABNORMAL RHYTHM ECG PREVIOUS TRACING : 08/22/2017 18.20 Since the previous tracing, no significant change noted DOCTOR: Alexandro Malone Interpretating Date/Time 04/05/2018 20:09:29
[2018-04-05] MEDS ORDERED: Influenza (Quadrivalent) Vaccine 0.5 ML Syringe IM ONE (21:00)
[2018-04-05] MEDS: Senna/Docusate Sodium 8.6/50 MG Tablet PO SCH ×2 (21:09→22:21)
--- NOTE | 2018-04-05 21:19 | P.HPIM ---
History of Present Illness Primary Care Physician: No Primary Care Physician Chief Complaint: weakness History of Present Illness: 32 yo f presented to the ED after a fall and pain all over her body. Patient states she had been drinking and fell and hit the Right side of her head and shoulder, and awoke in a pool of blood from a laceration to her Right eyebrow. She states that she has severe pain in her right shoulder and chest from the fall and is barely able to breath due to the pain and can not move easily, she also has a hot painful nodule on her left biceps area. 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 She had low grade fever in the Ed, but denies nv, diarrhea, or neck pain. Patient had CTA of chest in the ED which revealed a fluid collection around a severe compression deformity of the lower thoracic spine T8, and a loculated R sided pleural effusion and she is admitted for concern of acute discitis, thoracic osteomyelitis. PMH asthma PSXHX wrist laceration repair, 1st toe amputation right foot SOC HX IVDA dilaudid and heroin, was a THC smoker but quit, smokes cigarrettes daily 1/2 ppd,denies etoh FAM hx - no premature dm, mi, cad, pos hx ca Inpatient Certification Inpatient Certification: I certify that the inpatient services were ordered in accordance with Medicare regulations governing the order. This includes certification that hospital inpatient services are reasonable and necessary and in the case of services not specified as inpatient-only under 42 CFR 419.22(n), that they are appropriately provided as inpatient services in accordance to with the 2-midnight benchmark under 43 CFR 412.3(e) Estimated Total Length of Stay (Days): 2 Plans for Post Hospital Care: Home Review of Systems Review of Systems: all other systems reviewed are negative [facility] Medical History Medical History Amputated great toe of right foot (Acute) Asthma (Acute) Osteomyelitis (Acute) Surgical History Surgical History Status post wrist surgery (Acute) Social History Social History Substance History: Active Abuse and Past History Second Hand Smoke Exposure: Yes Smoking Status: Current every day smoker Tobacco Type: Cigarettes How Often Do You Have a Drink Containing Alcohol: 2 to 3 times a week Recent Travel in [facility] within the Last 8 Weeks: No Recent Out of Country Travel within the Last 8 Weeks: No Substance Abuse Detail Amphetamines: Substance Use Status: Active Route Used Substance Abuse: Intravenously Substance Abuse Comment: also opioids, marijuana, etoh Immunization History Tetanus Immunization: Never Vaccinated Hx Influenza Vaccine This Season: No Medications and Allergies Allergies Allergy/AdvReac Type Severity Reaction Status Date / Time No Known Allergies Allergy Verified 01/21/18 11:21 Home Medications Medication Instructions Recorded Confirmed Type albuterol sulfate 2 puff INHALATION Q4-6H PRN 01/21/18 04/04/18 History Active Medications: Active Medications Acetaminophen (Tylenol) 650 mg PO Q4H PRN PRN Reason: Temp > 100.4 Last Admin: 04/05/18 20:14 Dose: 650 mg Al Hydroxide/Mg Hydroxide (Milk Of Magnesia Liq) 30 ml PO Q12H PRN PRN Reason: Mild Constipation Albuterol (Ventolin Hfa Inh) 2 puff INH Q4H PRN PRN Reason: SHORTNESS OF BREATH Bisacodyl (Dulcolax Supp) 10 mg RECTAL DAILY PRN PRN Reason: SEVERE CONSITIPATION Piperacillin/Tazobactam/Dextrose (Zosyn 3.375 Gm Premix) 3.375 gm in 50 mls @ 100 mls/hr IV.SIG Q6H [facility] Last Infusion: 04/05/18 18:40 Dose: Infused Vancomycin HCl 1,000 mg/ (Sodium Chloride) 250 mls @ 250 mls/hr IV.SIG Q12H [facility] Last Infusion: 04/05/18 17:00 Dose: Infused Lactulose (Lactulose Liq) 30 ml PO DAILY PRN PRN Reason: SEVERE CONSITIPATION Miscellaneous Information ([facility] Ordered Lab Info) 0 each OTHER ONCE ONE Stop: 04/06/18 11:46 Morphine Sulfate (Morphine Inj) 2 mg IV.PUSH Q3H PRN PRN Reason: pain 5-10 Last Admin: 04/05/18 18:42 Dose: 2 mg Ondansetron HCl (Zofran Inj) 4 mg IV.PUSH Q6H PRN PRN Reason: NAUSEA OR VOMITING Pharmacy Profile Note (Vancomycin Consult Pharmacy) 1 each OTHER UNSCH PRN PRN Reason: Pharmacy to dose Senna/Docusate Sodium (Lori-Colace) 1 tab PO BID [facility] Sennosides (Senokot) 17.2 mg PO Q12H PRN PRN Reason: Moderate Constipation Sodium Chloride (Ns Flush) 2 ml IV.FLUSH PRN PRN PRN Reason: FLUSH AFTER USING IV ACCESS Sodium Chloride (Ns Flush) 2 ml IV.FLUSH BID [facility] Sodium Chloride (Ns Flush) 2 ml IV.FLUSH PRN PRN PRN Reason: FLUSH AFTER USING IV ACCESS Physical Exam Vital signs: Vital Signs 04/05/18 00:02 04/05/18 00:03 04/05/18 03:44 Temperature 100.8 F H Pulse Rate 106 H 113 H Respiratory Rate 16 16 16 Blood Pressure 122/67 115/69 Pulse Oximetry 97 95 04/05/18 04:25 04/05/18 05:43 04/05/18 08:00 Temperature 99.1 F 98.7 F Pulse Rate 107 H 102 H Respiratory Rate 16 16 23 Blood Pressure 115/66 Pulse Oximetry 95 98 04/05/18 12:00 04/05/18 15:45 04/05/18 16:00 Temperature 98.8 F 100.3 F H 98.1 F Pulse Rate 115 H 118 H 102 H Respiratory Rate 21 20 18 Blood Pressure 122/68 113/66 114/60 Pulse Oximetry 99 95 97 04/05/18 19:25 Temperature 98.4 F Pulse Rate 100 H Respiratory Rate 17 Blood Pressure 108/59 L Pulse Oximetry 99 Intake & Output 04/05/18 04/05/18 04/06/18 06:59 18:59 06:59 Intake Total 2350 / 2350 590 / 590 Balance 2350 / 2350 590 / 590 Weight 57.6 kg Intake: IV 2350 / 2350 350 / 350 NS Inj 1,000 ML @ 1000 mls/hr 1000 / 1000 IV.CONT .Q1H [facility] Rx#:[id number] Zosyn 3.375 GM Premix 3.375 gm 100 / 100 100 / 100 In 50 ml @ 100 mls/hr IV.SIG Q6H [facility] Rx#:[id number] NS Inj 1,000 ML @ 1000 mls/hr 1000 / 1000 IV.SIG BOLUS [facility] Rx#:[id number] Vancomycin Inj 1,000 MG In NS 250 / 250 250 / 250 Inj 250 ML @ 250 mls/hr IV.SIG Q12H [facility] Rx#:[id number] Oral 240 / 240 Other: # Voids 1 Weight On Admission 58.967 kg Narrative: GEN well-developed well-nourished ill appearing and disheveled 32yo w f awake alert oriented to person time and place, pleasant in no acute distress, restless and appear in discomfort HEENT normocephalic atraumatic, Pupils equal reactive, sclerae anicteric, extraocular motion intact, mucosa isdry. posterior pharynx no exudate NECK supple no JVD trachea midline thyroid smooth not enlarged, right clavicle tender edematous and echymosis ANT CHEST WALL w tenderness to palpation right w pain to movment and ecchymosis HEART S1-S2 regular without murmur gallops or clicks tachycardic LUNGS clear to auscultation without wheeze rales or rhonchi left, right w coarse rhonchi base , full symmetric expansion BACK exam is unable to eval spine due to pain w movment, she doesnt appear to have cva tenderness ABDOMEN soft nondistended positive bowel sounds no guarding rebound rigidity LYMPH NODES no cervical, axillary or inguinal adenopathy noted EXTREMITIES no clubbing cyanosis or significant edema, peripheral pulses palpable +2 NEUROLOGIC cranial nerves II through XII appear grossly intact, she is not moving right upper ext due to pain and lower ext minimal she says due to pain, she has sensation and normal tone nad no clonus SKIN warm dry with fair turgor, large erythematous nodule left anterior biceps and scattered other smaller nodules w track oglesby Results Labs CBC & Chem 7: 04/04/18 21:55 04/04/18 21:55 Imaging Impressions Shoulder X-Ray 04/04/18 21:31 CONCLUSION: Distal right clavicle fracture Abdomen/Pelvis CT 04/04/18 21:32 CONCLUSION: 1. Severe compression fracture at T7 with prominent prevertebral hemorrhage which would be discussed on CT pulmonary angiogram. Fracture also T9. 2. Small amount of pelvic free fluid. Cervical Spine CT 04/04/18 21:32 CONCLUSION: 1. No acute findings on cervical spine CT. Chest CTA 04/04/18 21:32 CONCLUSION: 1. Negative for pulmonary embolus. 2. Abnormal complex presumed fluid collection in the paravertebral region of the lower thoracic spine centered around a severe compression deformity at the lower thoracic spine, probably T8. There is also a loculated right pleural effusion. Cannot exclude infection. Would recommend MRI of the thoracic spine to assess for discitis or osteomyelitis. 3. Small free-flowing left effusion. Subsegmental basilar airspace disease, right greater than left. 4. Prior left manubrial fracture with partial nonunion. Chest X-Ray 04/04/18 21:32 CONCLUSION: Right basilar infiltrate. Head CT 04/04/18 21:32 CONCLUSION: 1. No acute intracranial abnormalities. . . Caprini VTE Risk Assessment Caprini VTE Risk Assessment: Moderate/High Risk (score >= 2) Caprini Risk Assessment Model: Point Value = 1 Point Value = 2 Point Value = 3 Point Value = 5 Age 41-60 Minor surgery BMI > 25 kg/m2 Swollen legs Varicose veins or History of unexplained or recurrent spontaneous Oral contraceptives or hormone replacement Sepsis (< 1 month) Serious lung disease, including pneumonia (< 1 month) Abnormal pulmonary function Acute myocardial infarction Congestive heart failure (< 1 month) History of inflammatory bowel disease Medical patient at bed rest Age 61-74 Arthroscopic surgery Major open surgery (> 45 min) Laparoscopic surgery (> 45 min) Malignancy Confined to bed (> 72 hours) Immobilizing plaster cast Central venous access Age >= 75 History of VTE Family history of VTE Factor V Leiden Prothrombin [id number] Lupus anticoagulant Anticardiolipin antibodies Elevated serum homocysteine Heparin-induced thrombocytopenia Other congenital or acquired thrombophilia Stroke (< 1 month) Elective arthroplasty Hip, pelvis, or leg fracture Acute spinal cord injury (< 1 month) Prophylaxis Regimen: Total Risk Factor Score Risk Level Prophylaxis Regimen 0-1 Low Early ambulation 2 Moderate Order ONE of the following: *Sequential Compression Device (SCD) *Heparin 5000 units SQ BID 3-4 Higher Order ONE of the following medications: *Heparin 5000 units SQ TID *Enoxaparin/Lovenox 40 mg SQ daily (WT < 150 kg, CrCl > 30 mL/min) *Enoxaparin/Lovenox 30 mg SQ daily (WT < 150 kg, CrCl > 10-29 mL/min) *Enoxaparin/Lovenox 30 mg SQ BID (WT < 150 kg, CrCl > 30 mL/min) AND/OR *Sequential Compression Device (SCD) 5 or more Highest Order ONE of the following medications: *Heparin 5000 units SQ TID (Preferred with Epidurals) *Enoxaparin/Lovenox 40 mg SQ daily (WT < 150 kg, CrCl > 30 mL/min) *Enoxaparin/Lovenox 30 mg SQ daily (WT < 150 kg, CrCl > 10-29 mL/min) *Enoxaparin/Lovenox 30 mg SQ BID (WT < 150 kg, CrCl > 30 mL/min) AND *Sequential Compression Device (SCD) Assessment and Plan Plan s/p FALL w TRAUMATIC INJURY THORACIC SPINE and ACUTE R CLAVICLE FX- pain control , ortho consult (also for abscess left biceps) ACUTE SEVERE COMPRESSION Fx T7-8 w prevertebral hemorrhage causing displacement of mediastinum and thoracic aorta - monitor hh, avoid anticoags, pain control, appreciate NS consult, DEHYDRATION w HYPONATREMIA - cont ivf HYPOKALEMIA - replace and check mg IVDA heroin/dilaudid/ addiction - hx w withdrawl symptoms, uds pos for cocaine amphetamines and thc...expressed interest in methadone/ suboxone detox/rehab SKIN ABSCESSes largest on LEFT BICEPS - warm compresses, iv abx, LOCULATED R PL EFFUSION - prob related to above clavicle fx and comp fx - not large enough to drain, will monitor. ASTHMA - intermittant, TOBACCO ABUSE w nicotine addiction - cessation, nicoderm hx MRSA OSTEO and ampuation R toe, incompletely treated, left ama, hx medical noncompliance, encourage complance, will get echo and fu blood cultures. agree w vanco dvt prophylaxis - scd due to hemorrhage dispo - home pending clinical course H&P: Quality VTE Deep Vein Thrombosis/Pulmonary Embolism Present on Admission: No
[2018-04-05] MEDS: Sod Chloride 0.9% Inj 1,000 ML IV.CONT SCH (22:15)
[2018-04-05 23:03] LABS: Hemoglobin 10.5 gm/dL (11.6-15.3)
[2018-04-06] MEDS ORDERED: Gadobutrol PF 7.5 MMOL/7.5 ML Vial (for RAD) IV.SIG ONE (00:35)
--- NOTE | 2018-04-06 01:20 | MR ---
EXAM DATE: 04/06/2018 12:47 AM EST AGE/SEX: 32 years / Female INDICATIONS: Abscess. CLINICAL DATA: This is the patient's initial encounter. Patient reports that signs and symptoms have been present for 4 - 6 days and indicates a pain score of 10/10. MEDICAL/SURGICAL HISTORY: Diabetes mellitus type II. None. COMPARISON: No prior exams available for comparison. TECHNIQUE: Multiplanar, multisequence MRI examination was performed without and with 6 ml Gadavist ( gadobutrol) contrast as single exam dose. FINDINGS: Bone marrow signal intensity normal. There is a T2 bright lesion within the superficial soft tissues distal humerus laterally measuring 1.8 x 2.0 cm. Peripheral enhancement on post gadolinium sequences. This is seen superficially. There is soft tissue swelling of the adjacent soft tissues. CONCLUSION: 1. Suspected small abscess within the distal lateral soft tissues measuring 2.0 x 1.8 cm. 2. No osteomyelitis. Electronically signed by: Kenn Cole MD Board Certified Radiologist 04/06/2018 1:19 AM EST
[2018-04-06] MEDS: diazePAM 5 MG Tablet PO PRN (01:40)
[2018-04-06] MEDS: Morphine Sulfate Inj 2 MG/ML Vial IV.PUSH PRN ×5 (04:13→21:12)
[2018-04-06] MEDS: Piperacil/Tazo 3.375 GM Premix 3.375 GM/50 ML PIGGYBACK IV.SIG SCH ×3 (06:02→18:11)
[2018-04-06 07:22] LABS: Baso # (Auto) 0.1 th/mm3 (0.0-0.2); Baso % (Auto) 0.8 % (0.0-2.0); Eos # (Auto) 0.6 th/mm3 (0.0-0.4); Eos % (Auto) 3.9 % (0.0-4.0); Hematocrit 31.7 % (35.0-46.0); Hemoglobin 10.8 gm/dL (11.6-15.3); Lymph # (Auto) 1.2 th/mm3 (1.0-4.8); Lymph % (Auto) 8.1 % (9.0-44.0); Mean Corpuscular HGB Conc 34.1 % (32.0-36.0); Mean Corpuscular Hemoglobin 30.4 pg (27.0-34.0); Mean Corpuscular Volume 89.1 fL (80.0-100.0); Mean Platelet Volume 7.2 fL (7.0-11.0); Mono # (Auto) 1.1 th/mm3 (0.0-0.9); Mono % (Auto) 7.1 % (0.0-8.0); Neut # (Auto) 12.3 th/mm3 (1.8-7.7); Neut % (Auto) 80.1 % (16.0-70.0); Platelet Count 510 th/mm3 (150-450); Red Blood Count 3.56 mil/mm3 (4.00-5.30); Red Cell Distribution Width 14.7 % (11.6-17.2); White Blood Count 15.3 th/mm3 (4.0-11.0)
[2018-04-06 07:43] LABS: Anion Gap 8 meq/L (5-15); Blood Urea Nitrogen 12 mg/dL (7-18); Calcium 8.1 mg/dL (8.5-10.1); Carbon Dioxide 28.3 meq/L (21.0-32.0); Chloride 98 meq/L (98-107); Glomerular Filtration Rate Greater Than 89 mL/min (>89); Glucose,Random 109 mg/dL (74-106); Potassium 3.6 meq/L (3.5-5.1); Sodium 134 meq/L (136-145)
--- NOTE | 2018-04-06 08:46 | P.CONOP ---
[facility] Orthopedics Consult Note - [facility] Consult date: 04/06/18 Chief complaint: Osteomyelitis/Discitis, Clavicle Fracture Narrative: This patient is a 32-year-old female who does have a history of intravenous drug use. She claims that she has not used drugs for several weeks. The patient had been drinking and she fell onto her right side. She noticed immediate pain about the right shoulder and upper arm. The patient was brought to [facility] and she was found to have a distal clavicle fracture. Incidentally she was also found to have what looks like infection about the left upper arm for which we were consulted for. The patient has been seen by the neurosurgeon because she has a compression fracture of her spine. Currently the patient is not complaining specific numbness or tingling radiating into the right upper extremity. 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 FAM hx - no premature dm, mi, cad, pos hx ca Review of Systems All other systems reviewed negative except as [facility] - History History Provided By: Patient - Medical History Medical History: Medical History (Last Reviewed 04/06/18 @ 08:41 by Alonzo Colvin MD) Amputated great toe of right foot Asthma Osteomyelitis - Surgical History Surgical History: Surgical History (Last Reviewed 04/06/18 @ 08:41 by Alonzo Colvin MD) Status post wrist surgery - Social History I have reviewed the patient's Social History: Yes - Tobacco History Second Hand Smoke Exposure: Yes Tobacco Use In Past 30 Days: Yes Smoking Status: Current every day smoker Tobacco Type: Cigarettes - Alcohol History How Often Do You Have a Drink Containing Alcohol: 2 to 3 times a week - Substance Use History Substance History: Active Abuse, Past History - Substance Use Type Amphetamines Status: Active Route Used: Intravenously Comment: also opioids, marijuana, etoh - Travel History Recent Travel in the [place] Within the Last 8 Weeks: No Recent Travel Out of the Country Within the Last 8 Weeks: No - Immunization History Tetanus Immunization: Never Vaccinated Hx Influenza Vaccine This Season: No Medications and Allergies Active Medications: Active Medications Acetaminophen (Tylenol) 650 mg PO Q4H PRN PRN Reason: Temp > 100.4 Last Admin: 04/05/18 20:14 Dose: 650 mg Hydrocodone Bitart/Acetaminophen ([place] 10/325) 1 tab PO Q4H PRN PRN Reason: pain 4-7 Last Admin: 04/06/18 03:08 Dose: 1 tab Al Hydroxide/Mg Hydroxide (Milk Of Magnesia Liq) 30 ml PO Q12H PRN PRN Reason: Mild Constipation Albuterol (Ventolin Hfa Inh) 2 puff INH Q4H PRN PRN Reason: SHORTNESS OF BREATH Bisacodyl (Dulcolax Supp) 10 mg RECTAL DAILY PRN PRN Reason: SEVERE CONSITIPATION Diazepam (Valium) 5 mg PO Q12H PRN PRN Reason: ANXIETY AND/OR INSOMNIA Last Admin: 04/06/18 01:40 Dose: 5 mg Piperacillin/Tazobactam/Dextrose (Zosyn 3.375 Gm Premix) 3.375 gm in 50 mls @ 100 mls/hr IV.SIG Q6H [facility] Last Infusion: 04/06/18 06:36 Dose: Infused Vancomycin HCl 1,000 mg/ (Sodium Chloride) 250 mls @ 250 mls/hr IV.SIG Q12H [facility] Last Infusion: 04/06/18 00:45 Dose: Infused Sodium Chloride (Ns Inj) 1,000 mls @ 100 mls/hr IV.CONT .Q10H [facility] Last Admin: 04/05/18 22:15 Dose: 100 mls/hr Lactulose (Lactulose Liq) 30 ml PO DAILY PRN PRN Reason: SEVERE CONSITIPATION Miscellaneous Information ([facility] [place] [facility] Ordered Lab Info) 0 each OTHER ONCE ONE Stop: 04/06/18 11:46 Morphine Sulfate (Morphine Inj) 2 mg IV.PUSH Q3H PRN PRN Reason: pain 5-10 Last Admin: 04/06/18 07:00 Dose: 2 mg Nicotine (Habitrol 14 Mg Patch.24 Hr) 1 patch T-DERMAL DAILY [facility] Ondansetron HCl (Zofran Inj) 4 mg IV.PUSH Q6H PRN PRN Reason: NAUSEA OR VOMITING Pharmacy Profile Note (Vancomycin Consult Pharmacy) 1 each OTHER UNSCH PRN PRN Reason: Pharmacy to dose Senna/Docusate Sodium (Lori-Colace) 1 tab PO BID [facility] Last Admin: 04/05/18 22:21 Dose: 1 tab Sennosides (Senokot) 17.2 mg PO Q12H PRN PRN Reason: Moderate Constipation Sodium Chloride (Ns Flush) 2 ml IV.FLUSH BID [facility] Last Admin: 04/05/18 22:16 Dose: 2 ml Sodium Chloride (Ns Flush) 2 ml IV.FLUSH PRN PRN PRN Reason: FLUSH AFTER USING IV ACCESS Last Admin: 04/06/18 04:14 Dose: 2 ml Allergies Allergy/AdvReac Type Severity Reaction Status Date / Time No Known Allergies Allergy Verified 01/21/18 11:21 Home Medications Medication Instructions Recorded Confirmed Type albuterol sulfate 2 puff INHALATION Q4-6H PRN 01/21/18 04/04/18 History Exam Vital signs: Vital Signs 04/05/18 12:00 04/05/18 15:45 04/05/18 16:00 Temperature 98.8 F 100.3 F H 98.1 F Pulse Rate 115 H 118 H 102 H Respiratory Rate 21 20 18 Blood Pressure 122/68 113/66 114/60 Pulse Oximetry 99 95 97 04/05/18 19:25 04/06/18 00:45 04/06/18 04:35 Temperature 98.4 F 98 F 98.4 F Pulse Rate 100 H 99 H 110 H Respiratory Rate 17 17 17 Blood Pressure 108/59 L 103/57 L 113/64 Pulse Oximetry 99 96 96 Intake & Output 04/05/18 04/06/18 04/06/18 18:59 06:59 18:59 Intake Total 590 / 590 350 / 350 Balance 590 / 590 350 / 350 Weight 57.6 kg 57.4 kg Intake: IV 350 / 350 350 / 350 Zosyn 3.375 GM Premix 3.375 gm 100 / 100 100 / 100 In 50 ml @ 100 mls/hr IV.SIG Q6H [facility] Rx#:[id number] Vancomycin Inj 1,000 MG In NS 250 / 250 250 / 250 Inj 250 ML @ 250 mls/hr IV.SIG Q12H [facility] Rx#:[id number] Oral 240 / 240 Other: Weight On Admission 58.967 kg Narrative: GENERAL: The patient is awake, alert and oriented x3. The patient is in distress due to pain. She was not very consolable during the examination. PSYCHIATRIC: Normal affect, insight, and judgment. HEENT: Head is atraumatic. Oropharynx is moist. Extraocular muscles are intact. NECK: Non-tender and supple. LUNGS: No audible wheezing. He has normal inspiratory effort with no signs of dyspnea HEART: Regular rate and rhythm. ABDOMEN: Soft, nontender, and nondistended. BACK: No CVA tenderness. EXTREMITIES/SKIN/NEURO/VASCULAR: The left upper extremity has a 2 cm x 2 cm area of swelling which appears to be superficial on the upper arm with no drainage. That area is rather red but the erythema does not spread proximally or distally. The erythema is completely isolated over the area of swelling. The compartments are soft. There is no sign of a necrotizing fasciitis in the left upper extremity. Antecubital fossa is unremarkable. Examination of the right upper extremity shows some mild swelling about the shoulder. She is limited range of motion. There is tenderness over the clavicle. She moves the fingers well on the right hand. She has 2+ radial pulse and has normal sensation. Results - Labs Result Diagrams: 04/06/18 06:32 04/06/18 06:32 Labs: Laboratory Results - last 24 hr 04/05/18 04/06/18 04/06/18 22:44 06:32 06:32 WBC 15.3 H RBC 3.56 L Hgb 10.5 L D 10.8 L Hct 31.0 L 31.7 L MCV 89.1 MCH 30.4 MCHC 34.1 RDW 14.7 Plt Count 510 H MPV 7.2 Neut % (Auto) 80.1 H Lymph % (Auto) 8.1 L [place] % (Auto) 7.1 Eos % (Auto) 3.9 Baso % (Auto) 0.8 Neut # (Auto) 12.3 H Lymph # (Auto) 1.2 [place] # (Auto) 1.1 H Eos # (Auto) 0.6 H Baso # (Auto) 0.1 WBC Differential . Differential Comment Auto diff final Sodium 134 L Potassium 3.6 Chloride 98 Carbon Dioxide 28.3 Anion Gap 8 BUN 12 Creatinine 0.57 Estimated GFR Greater than 89 Random Glucose 109 H Calcium 8.1 L - Diagnostic results Imaging: Impressions Humerus MRI 04/06/18 00:00 CONCLUSION: 1. Suspected small abscess within the distal lateral soft tissues measuring 2.0 x 1.8 cm. 2. No osteomyelitis. I have reviewed the images for this radiology study. I agree with the interpretation given by the radiologist. Additionally I did review x-rays of the right shoulder which shows a distal apical fracture with mild displacement. No Karissa humeral dislocation is noted. Assessment and Plan - Assessment and Plan 32-year-old female with history of intravenous drug use with history of MRSA osteomyelitis status post fall with right distal clavicle fracture mildly displaced. Left upper arm superficial cutaneous abscess. As for the right shoulder is concerned recommend nonoperative management for the clavicle fracture. We will order a sling for comfort. Will follow the patient as an outpatient for repeat x-rays and then we will initiate some range of motion exercises. She does have a concomitant fracture of her spine which is being treated by the neurosurgeons. As far as the left upper extremity cutaneous superficial abscess I would recommend management by the general surgeons. This area has not yet been decompressed in the emergency room. She may require a decompression. Based on the MRI findings there is no evidence of deep infection in the upper extremity. There is no evidence of advancing cellulitis or necrotizing fasciitis. According to department of surgery manjinder from 2017 it is the recommended that "superficial infections of the upper extremity are managed by emergency room physician or a general surgeon." - Attending Attestation Attending Attestation: A mid level provider in my office, nurse practitioner or PA, may see this patient on a follow up basis and continue to implement the plan including: starting or adjusting medications, injections of muscle, tendons, bursa or joints, cast application, orthotic or brace application, physical therapy, further radiographic studies including X-ray, MRI, CT, ultrasound or bone scan , vascular studies, neurological studies, or other specialist consultations, and proceeding with surgical management as appropriate.
[2018-04-06] MEDS: Senna/Docusate Sodium 8.6/50 MG Tablet PO SCH ×2 (09:07→21:11)
[2018-04-06] MEDS: Sod Chloride 0.9% Inj 1,000 ML IV.CONT SCH ×2 (09:08→18:12)
[2018-04-06] MEDS ORDERED: Gadobutrol PF 2 MMOL/2 ML Vial (for RAD) IV.SIG ONE (11:01)
--- NOTE | 2018-04-06 11:08 | MR ---
EXAM DATE: 04/06/2018 10:32 AM EST AGE/SEX: 32 years / Female INDICATIONS: . Back pain post fall. CLINICAL DATA: This is the patient's subsequent encounter. Patient reports that signs and symptoms h ave been present for 3 days and indicates a pain score of 6/10. MEDICAL/SURGICAL HISTORY: Asthma. IV drug user. . Right great toe removed. Right wrist surger y. COMPARISON: [place], CT SOFT TISSUE NECK W CONTRAST, 08/27/2017. [place], CTA PULMONARY W CONTRAST W 3D, 04/04/2018. . TECHNIQUE: Multiplanar, multisequence MRI of the thoracic spine was performed without and with 5.5 m l Gadavist (gadobutrol) contrast as a single exam dose. FINDINGS: There is extensive paravertebral enhancement extending from the superior aspect of T4 to the inferior aspect of T10. This area of enhancement measures 2.9 cm AP by 12.0 cm sagittal dimension. Paraverteb ral fluid collection is noted anterior to the T6 through T8 vertebral bodies and measures 3.7 cm sagi ttal by 4.5 cm transverse by 2.8 cm AP dimension. The findings are suggestive of probable paravertebr al abscess. There is displacement of the descending thoracic aorta anteriorly related to this collect ion also. There is evidence of a severe acute compression deformity involving T7 with underlying enha ncement of the vertebral body. There is moderate compression deformity involving T9 and mild to moder ate compression deformity involving T3. Focal enhancement involving the left posterior lateral aspect of the T6 vertebral body as well as the central portion of the T4 vertebral body also. No spinal nancy nosis is noted. Right pleural effusion is noted. Hepatosplenomegaly is noted. CONCLUSION: 1. Extensive paravertebral enhancement extending from the superior aspect of T4 to the inferior aspe ct of T10. This area of enhancement measures 2.9 cm AP by 12.0 cm sagittal dimension. Paravertebral f luid collection is noted anterior to the T6 through T8 vertebral bodies and measures 3.7 cm sagittal by 4.5 cm transverse by 2.8 cm AP dimension. The findings are suggestive of probable paravertebral ab scess. There is displacement of the descending thoracic aorta anteriorly related to this collection a lso. 2. Evidence of a severe acute compression deformity involving T7 with underlying enhancement of the vertebral body. 3. Moderate compression deformity involving T9 and mild to moderate compression deformity involving T3. Focal enhancement involving the left posterior lateral aspect of the T6 vertebral body as well as the central portion of the T4 vertebral body also. 4. No spinal stenosis is noted. 5. Right pleural effusion. 6. Hepatosplenomegaly. Electronically signed by: Shon Wahl MD Board Certified Radiologist 04/06/2018 11:07 AM EST
[2018-04-06] MEDS ORDERED: Pharmacy Ordered Lab Info OTHER ONE (11:45)
--- NOTE | 2018-04-06 12:05 | P.PNNS ---
Subjective Interval history: patient lying in bed, complains of pain to her RUE and midback, no neuro changes otherwise overnight <Sunni Payton - Last Filed: 04/06/18 12:01> Physical Exam Vital signs: Vital Signs 04/05/18 15:45 04/05/18 16:00 04/05/18 19:25 Temperature 100.3 F H 98.1 F 98.4 F Pulse Rate 118 H 102 H 100 H Respiratory Rate 20 18 17 Blood Pressure 113/66 114/60 108/59 L Pulse Oximetry 95 97 99 04/06/18 00:45 04/06/18 04:35 04/06/18 08:00 Temperature 98 F 98.4 F 100.3 F H Pulse Rate 99 H 110 H 113 H Respiratory Rate 17 17 16 Blood Pressure 103/57 L 113/64 117/59 L Pulse Oximetry 96 96 93 L Intake & Output 04/05/18 04/06/18 04/06/18 18:59 06:59 18:59 Intake Total 590 / 590 350 / 350 600 / 600 Balance 590 / 590 350 / 350 600 / 600 Weight 57.6 kg 57.4 kg Intake: IV 350 / 350 350 / 350 600 / 600 NS Inj 1,000 ML @ 100 mls/hr IV 600 / 600 .CONT .Q10H [facility] Rx#:[id number] Zosyn 3.375 GM Premix 3.375 gm 100 / 100 100 / 100 In 50 ml @ 100 mls/hr IV.SIG Q6H [facility] Rx#:[id number] Vancomycin Inj 1,000 MG In NS 250 / 250 250 / 250 Inj 250 ML @ 250 mls/hr IV.SIG Q12H [facility] Rx#:[id number] Oral 240 / 240 Other: Weight On Admission 58.967 kg Narrative: Pt A&Ox3 [place] and follows equal strength x4 PERRL bowel and bladder function intact positive sensation to light touch x4 extremities <Sunni Payton - Last Filed: 04/06/18 12:01> Vital signs: Vital Signs 04/05/18 19:25 04/06/18 00:45 04/06/18 04:35 Temperature 98.4 F 98 F 98.4 F Pulse Rate 100 H 99 H 110 H Respiratory Rate 17 17 17 Blood Pressure 108/59 L 103/57 L 113/64 Pulse Oximetry 99 96 96 04/06/18 08:00 Temperature 100.3 F H Pulse Rate 113 H Respiratory Rate 16 Blood Pressure 117/59 L Pulse Oximetry 93 L Intake & Output 04/05/18 04/06/18 04/06/18 18:59 06:59 18:59 Intake Total 590 / 590 350 / 350 850 / 850 Balance 590 / 590 350 / 350 850 / 850 Weight 57.6 kg 57.4 kg Intake: IV 350 / 350 350 / 350 850 / 850 NS Inj 1,000 ML @ 100 mls/hr IV 800 / 800 .CONT .Q10H [facility] Rx#:[id number] Zosyn 3.375 GM Premix 3.375 gm 100 / 100 100 / 100 50 / 50 In 50 ml @ 100 mls/hr IV.SIG Q6H [facility] Rx#:[id number] Vancomycin Inj 1,000 MG In NS 250 / 250 250 / 250 Inj 250 ML @ 250 mls/hr IV.SIG Q12H [facility] Rx#:[id number] Oral 240 / 240 Other: Weight On Admission 58.967 kg <Cuate Pena - Last Filed: 04/06/18 16:30> Assessment and Plan - Plan 32yoF with T7/T9 compression fractures, presumed osteo/discitis. MRI T-spine with contrast, as you have ordered. Please expedite (routine scans may take all day). Will follow. April 06, 2018 patient neurologically stable will obtain Thoracic MRI scan TLSO ordered for OOB Flexeril ordered for muscle spasms maintain current medical management will follow <Sunni Payton - Last Filed: 04/06/18 12:01> - Attending Attestation The exam, history, and the medical decision-making described in the above note were completed with the assistance of the mid-level provider. I reviewed and agree with the findings presented. I attest that I had a [id number] encounter with the patient on the same day, and personally performed and documented my assessment and findings in the medical record. <Cuate Pena - Last Filed: 04/06/18 16:30>
[2018-04-06] MEDS: Vancomycin Inj 1,000 MG in Sodium Chlor 0.9% Inj 250 ML IV.SIG SCH ×2 (13:03→21:11)
--- NOTE | 2018-04-06 14:57 | P.CONID ---
History of Present Illness Service: Infectious disease Consult date: 04/06/18 Requesting Physician: Felicia Hylton Reason for Consult: Evaluate patient with paravertebral abscess Primary Care Provider: No Primary Care Physician Chief Complaint: weakness History of Present Illness: Patient seen and examined. Records reviewed. Patient is a 32-year-old female, presented to the hospital complaining of severe pain especially on her right shoulder and in her back. She apparently fell and she had been drinking and she fell on her right side and hit her head and shoulder. This was about 2 weeks ago. Since then she has had pain, but the pain started increasing. Patient has known IV drug use and has been injecting. She also noted a painful nodule on her left biceps. The last 2 days she has been having fevers. Patient also has been having cough for the last week and has been bringing up some grayish phlegm. Denies any chest pain. She said she has had some vomiting. No diarrhea. Denies any dysuria, but she noted that her urine looks very dark and concentrated. Patient has been admitted, and she had 2 blood cultures done one is growing staph aureus. She has been found to have a paravertebral fluid collection with some pushing on the thoracic aorta. She has loculated effusion on the right, and a free- flowing effusion on the left side. Patient also with evidence of compression fracture severe in T7, and has other areas of fracture in her thoracic spine. Patient is being evaluated by neurosurgery. Orthopedic ulcers on the patient for to evaluate the abscess on her left upper arm. Her WBC is elevated at 15, 000. Urinalysis is okay. Infectious disease consultation has been requested to assist with evaluation and treatment. Review of Systems Constitutional: Reports body ache(s), Reports chills, Reports fever(s), Reports night sweats Eyes: Denies discharge, Denies dry eyes Ears, Nose, Mouth, and Throat: Denies dental pain, Denies difficulty swallowing , Denies nasal congestion, Denies nasal discharge, Denies pain with swallowing, Denies sore throat Cardiovascular: Denies chest pain, Denies foot swelling, Denies generalized swelling, Denies leg swelling, Denies shortness of breath Respiratory: Reports chest congestion, Reports cough, Reports shortness of breath Gastrointestinal: Denies abdominal pain, Denies loose stools, Denies pain with swallowing, Denies vomiting Genitourinary: Denies difficulty urinating, Denies painful urination Musculoskeletal: Reports back pain, Reports body aches, Reports joint pain Skin/Breast: Reports sores, Denies rash Neurologic: Denies localized weakness, Denies tingling/numbness/burning sensations PMFSH - History History Provided By: Patient - Medical History Medical History: Medical History (Last Reviewed 04/06/18 @ 15:05 by Eden Li MD) Amputated great toe of right foot Asthma Osteomyelitis - Surgical History Surgical History: Surgical History (Last Reviewed 04/06/18 @ 15:05 by Eden Li MD) Status post wrist surgery - Tobacco History Second Hand Smoke Exposure: Yes Tobacco Use In Past 30 Days: Yes Smoking Status: Current every day smoker Tobacco Type: Cigarettes - Alcohol History How Often Do You Have a Drink Containing Alcohol: 2 to 3 times a week - Substance Use History Substance History: Active Abuse, Past History - Substance Use Type Amphetamines Status: Active Route Used: Intravenously Comment: also opioids, marijuana, etoh - Travel History Recent Travel in the [place] Within the Last 8 Weeks: No Recent Travel Out of the Country Within the Last 8 Weeks: No - Immunization History Tetanus Immunization: Never Vaccinated Hx Influenza Vaccine This Season: No Medications and Allergies Active Medications: Active Medications Acetaminophen (Tylenol) 650 mg PO Q4H PRN PRN Reason: Temp > 100.4 Last Admin: 04/05/18 20:14 Dose: 650 mg Hydrocodone Bitart/Acetaminophen ([place] 10/325) 1 tab PO Q4H PRN PRN Reason: pain 4-7 Last Admin: 04/06/18 09:07 Dose: 1 tab Al Hydroxide/Mg Hydroxide (Milk Of Abhishek Fernandez) 30 ml PO Q12H PRN PRN Reason: Mild Constipation Albuterol (Ventolin Hfa Inh) 2 puff INH Q4H PRN PRN Reason: SHORTNESS OF BREATH Bisacodyl (Dulcolax Supp) 10 mg RECTAL DAILY PRN PRN Reason: SEVERE CONSITIPATION Cyclobenzaprine HCl (Flexeril) 5 mg PO Q8HR AMBIKA Last Admin: 04/06/18 13:03 Dose: 5 mg Diazepam (Valium) 5 mg PO Q12H PRN PRN Reason: ANXIETY AND/OR INSOMNIA Last Admin: 04/06/18 01:40 Dose: 5 mg Piperacillin/Tazobactam/Dextrose (Zosyn 3.375 Gm Premix) 3.375 gm in 50 mls @ 100 mls/hr IV.SIG Q6H [facility] Last Infusion: 04/06/18 12:20 Dose: Infused Vancomycin HCl 1,000 mg/ (Sodium Chloride) 250 mls @ 250 mls/hr IV.SIG Q12H [facility] Stop: 04/06/18 15:00 Last Admin: 04/06/18 13:03 Dose: 250 mls/hr Sodium Chloride (Ns Inj) 1,000 mls @ 100 mls/hr IV.CONT .Q10H [facility] Last Infusion: 04/06/18 13:12 Dose: 100 mls/hr Vancomycin HCl 1,000 mg/ (Sodium Chloride) 250 mls @ 250 mls/hr IV.SIG Q8H AMBIKA Lactulose (Lactulose Liq) 30 ml PO DAILY PRN PRN Reason: SEVERE CONSITIPATION Miscellaneous Information ([facility] Ordered Lab Info) 0 each OTHER ONCE ONE Stop: 04/07/18 19:46 Morphine Sulfate (Morphine Inj) 2 mg IV.PUSH Q3H PRN PRN Reason: pain 5-10 Last Admin: 04/06/18 11:50 Dose: 2 mg Nicotine (Habitrol 14 Mg Patch.24 Hr) 1 patch T-DERMAL DAILY [facility] Last Admin: 04/06/18 09:07 Dose: 1 patch Ondansetron HCl (Zofran Inj) 4 mg IV.PUSH Q6H PRN PRN Reason: NAUSEA OR VOMITING Pharmacy Profile Note (Vancomycin Consult Pharmacy) 1 each OTHER UNSCH PRN PRN Reason: Pharmacy to dose Senna/Docusate Sodium (Lori-Colace) 1 tab PO BID [facility] Last Admin: 04/06/18 09:07 Dose: 1 tab Sennosides (Senokot) 17.2 mg PO Q12H PRN PRN Reason: Moderate Constipation Sodium Chloride (Ns Flush) 2 ml IV.FLUSH BID [facility] Last Admin: 04/06/18 09:08 Dose: Not Given Sodium Chloride (Ns Flush) 2 ml IV.FLUSH PRN PRN PRN Reason: FLUSH AFTER USING IV ACCESS Last Admin: 04/06/18 04:14 Dose: 2 ml Allergies Allergy/AdvReac Type Severity Reaction Status Date / Time No Known Allergies Allergy Verified 01/21/18 11:21 Home Medications Medication Instructions Recorded Confirmed Type albuterol sulfate 2 puff INHALATION Q4-6H PRN 01/21/18 04/04/18 History Exam Vital signs: Vital Signs 04/05/18 15:45 04/05/18 16:00 04/05/18 19:25 Temperature 100.3 F H 98.1 F 98.4 F Pulse Rate 118 H 102 H 100 H Respiratory Rate 20 18 17 Blood Pressure 113/66 114/60 108/59 L Pulse Oximetry 95 97 99 04/06/18 00:45 04/06/18 04:35 04/06/18 08:00 Temperature 98 F 98.4 F 100.3 F H Pulse Rate 99 H 110 H 113 H Respiratory Rate 17 17 16 Blood Pressure 103/57 L 113/64 117/59 L Pulse Oximetry 96 96 93 L Intake & Output 04/05/18 04/06/18 04/06/18 18:59 06:59 18:59 Intake Total 590 / 590 350 / 350 850 / 850 Balance 590 / 590 350 / 350 850 / 850 Weight 57.6 kg 57.4 kg Intake: IV 350 / 350 350 / 350 850 / 850 NS Inj 1,000 ML @ 100 mls/hr IV 800 / 800 .CONT .Q10H AMBIKA Rx#:[id number] Zosyn 3.375 GM Premix 3.375 gm 100 / 100 100 / 100 50 / 50 In 50 ml @ 100 mls/hr IV.SIG Q6H AMBIKA Rx#:[id number] Vancomycin Inj 1,000 MG In NS 250 / 250 250 / 250 Inj 250 ML @ 250 mls/hr IV.SIG Q12H AMBIKA Rx#:[id number] Oral 240 / 240 Other: Weight On Admission 58.967 kg Narrative: Physical examination GENERAL: Patient is a well-nourished, well-developed female, awake and alert , not in respiratory distress. Patient is wearing a thoracic brace SKIN: Warm and dry. No generalized rash, no ecchymoses and no evidence of embolic lesions. HEAD: Atraumatic. Normocephalic. No temporal wasting, or tenderness. EYES: [place] conjunctiva. No petechia or hemorrhage. Pupils equal, round and reactive to light. Extraocular movements full and intact. No scleral icterus. No injection or drainage. EARS, NOSE AND THROAT: Nose without bleeding or purulent nasal discharge. No sinus tenderness. Mucous membranes pink and moist. No oral lesions noted. No exudate. No oral thrush. NECK: Trachea midline. Supple and not tender, no meningeal signs CARDIOVASCULAR: Regular rate and rhythm. No murmurs, rubs or gallops heard RESPIRATORY: Clear to auscultation. Breath sounds equal bilaterally. No rales , wheezing or rhonchi ABDOMEN: Soft, non-tender, nondistended. Bowel sounds present and normoactive. No guarding. No rebound. No organomegaly. EXTREMITIES: No clubbing, cyanosis, or edema. There is a red warm large nodular area in L upper arm with some fluctuance. No joint effusion, has good ROM. No calf tenderness. NEUROLOGICAL: Awake and alert. Cranial nerves grossly intact. Motor grossly within normal limits. PSYCHIATRIC: Normal affect, calm and cooperative. LINE: No evidence of infection Results - Labs CBC & Chem 7: 04/06/18 06:32 04/06/18 06:32 Labs: Laboratory Results - last 24 hr 04/05/18 04/06/18 04/06/18 22:44 06:32 06:32 WBC 15.3 H RBC 3.56 L Hgb 10.5 L D 10.8 L Hct 31.0 L 31.7 L MCV 89.1 MCH 30.4 MCHC 34.1 RDW 14.7 Plt Count 510 H MPV 7.2 Neut % (Auto) 80.1 H Lymph % (Auto) 8.1 L Lamb % (Auto) 7.1 Eos % (Auto) 3.9 Baso % (Auto) 0.8 Neut # (Auto) 12.3 H Lymph # (Auto) 1.2 Lamb # (Auto) 1.1 H Eos # (Auto) 0.6 H Baso # (Auto) 0.1 WBC Differential . Differential Comment Auto diff final Sodium 134 L Potassium 3.6 Chloride 98 Carbon Dioxide 28.3 Anion Gap 8 BUN 12 Creatinine 0.57 Estimated GFR Greater than 89 Random Glucose 109 H Calcium 8.1 L Magnesium 2.0 Vancomycin Trough 04/06/18 11:40 WBC RBC Hgb Hct MCV MCH MCHC RDW Plt Count MPV Neut % (Auto) Lymph % (Auto) Lamb % (Auto) Eos % (Auto) Baso % (Auto) Neut # (Auto) Lymph # (Auto) Lamb # (Auto) Eos # (Auto) Baso # (Auto) WBC Differential Differential Comment Sodium Potassium Chloride Carbon Dioxide Anion Gap BUN Creatinine Estimated GFR Random Glucose Calcium Magnesium Vancomycin Trough 5.8 - Imaging Impressions Humerus MRI 04/06/18 00:00 CONCLUSION: 1. Suspected small abscess within the distal lateral soft tissues measuring 2.0 x 1.8 cm. 2. No osteomyelitis. Thoracic Spine MRI 04/06/18 08:40 CONCLUSION: 1. Extensive paravertebral enhancement extending from the superior aspect of T4 to the inferior aspect of T10. This area of enhancement measures 2.9 cm AP by 12.0 cm sagittal dimension. Paravertebral fluid collection is noted anterior to the T6 through T8 vertebral bodies and measures 3.7 cm sagittal by 4.5 cm transverse by 2.8 cm AP dimension. The findings are suggestive of probable paravertebral abscess. There is displacement of the descending thoracic aorta anteriorly related to this collection also. 2. Evidence of a severe acute compression deformity involving T7 with underlying enhancement of the vertebral body. 3. Moderate compression deformity involving T9 and mild to moderate compression deformity involving T3. Focal enhancement involving the left posterior lateral aspect of the T6 vertebral body as well as the central portion of the T4 vertebral body also. 4. No spinal stenosis is noted. 5. Right pleural effusion. 6. Hepatosplenomegaly. Assessment and Plan - Plan Impression Staph aureus sepsis - worrisome for IE Paravertebral abscess, ?into thoracic cavity (has loculated effusion R) Abscess LUE,superficial Multiple thoracic spine fracture R clavicular fracture Recommendation Repeat 2 BC Echo Baseline ESR and CRP Continue Vanco and Zosyn Adjust Abx once C/S finalized Consult Dr Oliveira to evaluate the paravertebral fluid, pressing into thoracic aorta, ?effusion infected also Follow temps Follow C/S Monitor progress I will follow along with you Thank you for this consultation
--- NOTE | 2018-04-06 17:55 | P.PNIM ---
Subjective Interval history: Follow-up for IV drug use, sepsis, paravertebral abscess in the thoracic area, left upper extremity abscess. At the time of this interview , patient was undergoing echo study. Doing well. However she complains of pain in her left upper extremity. During discussion about her IV drug use, history as well as current probable diagnosis, she becomes tearful. Physical Exam Vital signs: Vital Signs 04/05/18 19:25 04/06/18 00:45 04/06/18 04:35 Temperature 98.4 F 98 F 98.4 F Pulse Rate 100 H 99 H 110 H Respiratory Rate 17 17 17 Blood Pressure 108/59 L 103/57 L 113/64 Pulse Oximetry 99 96 96 04/06/18 08:00 04/06/18 12:00 04/06/18 16:00 Temperature 100.3 F H 99 F 98.5 F Pulse Rate 113 H 113 H 112 H Respiratory Rate 16 14 16 Blood Pressure 117/59 L 129/73 125/66 Pulse Oximetry 93 L 94 L 93 L Intake & Output 04/05/18 04/06/18 04/06/18 18:59 06:59 18:59 Intake Total 590 / 590 350 / 350 850 / 850 Balance 590 / 590 350 / 350 850 / 850 Weight 57.6 kg 57.4 kg Intake: IV 350 / 350 350 / 350 850 / 850 NS Inj 1,000 ML @ 100 mls/hr IV 800 / 800 .CONT .Q10H AMBIKA Rx#:[id number] Zosyn 3.375 GM Premix 3.375 gm 100 / 100 100 / 100 50 / 50 In 50 ml @ 100 mls/hr IV.SIG Q6H AMBIKA Rx#:[id number] Vancomycin Inj 1,000 MG In NS 250 / 250 250 / 250 Inj 250 ML @ 250 mls/hr IV.SIG Q12H AMBIKA Rx#:[id number] Oral 240 / 240 Other: Weight On Admission 58.967 kg Narrative: GENERAL: Well-nourished, well-developed patient. Somewhat disheveled appearance SKIN: Warm and dry. No splinter hemorrhage noted. HEAD: Normocephalic. EYES: No scleral icterus. No injection or drainage. NECK: Supple, trachea midline. No JVD or lymphadenopathy. CARDIOVASCULAR: Regular rhythm, tachycardic without murmurs, gallops, or rubs. RESPIRATORY: Breath sounds equal bilaterally. No accessory muscle use. GASTROINTESTINAL: Abdomen soft, non-tender, nondistended. MUSCULOSKELETAL: No cyanosis, or edema. Left upper extremity above the antecubital fossa there is a lesion with erythema and tenderness to palpation. BACK: Nontender without obvious deformity. No CVA tenderness. Results Labs CBC & Chem 7: 04/06/18 06:32 04/06/18 06:32 Labs: Microbiology 04/04/18 23:30 Blood - Peripheral Aerobic Blood Culture - Preliminary No growth in 2 days 04/04/18 23:30 Blood - Peripheral Anaerobic Blood Culture - Preliminary Staphylococcus aureus 04/04/18 23:40 Blood - Peripheral Aerobic Blood Culture - Preliminary No growth in 2 days 04/04/18 23:40 Blood - Peripheral Anaerobic Blood Culture - Preliminary No growth in 2 days Imaging Imaging: Impressions Humerus MRI 04/06/18 00:00 CONCLUSION: 1. Suspected small abscess within the distal lateral soft tissues measuring 2.0 x 1.8 cm. 2. No osteomyelitis. Thoracic Spine MRI 04/06/18 08:40 CONCLUSION: 1. Extensive paravertebral enhancement extending from the superior aspect of T4 to the inferior aspect of T10. This area of enhancement measures 2.9 cm AP by 12.0 cm sagittal dimension. Paravertebral fluid collection is noted anterior to the T6 through T8 vertebral bodies and measures 3.7 cm sagittal by 4.5 cm transverse by 2.8 cm AP dimension. The findings are suggestive of probable paravertebral abscess. There is displacement of the descending thoracic aorta anteriorly related to this collection also. 2. Evidence of a severe acute compression deformity involving T7 with underlying enhancement of the vertebral body. 3. Moderate compression deformity involving T9 and mild to moderate compression deformity involving T3. Focal enhancement involving the left posterior lateral aspect of the T6 vertebral body as well as the central portion of the T4 vertebral body also. 4. No spinal stenosis is noted. 5. Right pleural effusion. 6. Hepatosplenomegaly. Assessment and Plan Plan Ms. Ambrocio is a 32-year-old female with a history of IV drug abuse who presented to the emergency department due to generalized pain. She apparently was drinking alcohol and fell about 2 weeks ago. She noticed a painful nodule on her left upper extremity above the antecubital fossa. MRI of the thoracic spine shows large paravertebral abscess formation there is also pressing against the descending aorta. Sepsis (heart rate of 100, WBC over 15, infection source left upper extremity abscess, paravertebral abscess) Left upper extremity abscess Paravertebral abscess of T4-T10 Loculated right pleural effusion Free-flowing left effusion -Vancomycin and Zosyn. Transthoracic echocardiogram completed, report pending. We will consult infectious disease as well as Dr. Jones due to paravertebral abscess with mass effect on descending aorta Appreciate neurosurgery, general surgery, orthopedic surgery input. General surgery and orthopedic surgery evaluated left upper extremity abscess. Continue acetaminophen, [place], morphine for pain management. Right-sided clavicular fracture Orthopedic surgery recommends nonoperative management. Sling ordered for comfort. IV drug abuse Patient admits to using IV Dilaudid as well as heroin. Patient has a history of IV drug related infections before. Patient is very remorseful. 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 Full code. Will start patient on Lovenox subcutaneous for DVT prophylaxis. Progress Note: Quality VTE Deep Vein Thrombosis/Pulmonary Embolism Present on Admission: No
--- NOTE | 2018-04-06 18:52 | ECHRPT ---
Indication: sepsis poss endocarditis CONCLUSIONS Normal left ventricular size. Wall thickness is normal. The left ventricular systolic function is hyperdynamic with an estimated ejection fraction in the ra nge of 65- 70%. Mild right ventricular enlargement. [id number] mitral valve regurgitation. Mild thickening of the mitral valve leaflets. There is mild tricuspid valve regurgitation. The estimated pulmonary arterial pressure is 31 mmHg. BP: / HR: Rhythm: MEASUREMENTS (Male / Female) Normal Values Technical Quality: 2D ECHO LV Diastolic Diameter PLAX 4.4 cm 4.2 - 5.9 / 3.9 - 5.3 cm LV Systolic Diameter PLAX 2.9 cm IVS Diastolic Thickness 0.6 cm 0.6 - 1.0 / 0.6 - 0.9 cm LVPW Diastolic Thickness 0.6 cm 0.6 - 1.0 / 0.6 - 0.9 cm LV Relative Wall Thickness 0.3 RV Internal Dim ED PLAX 2.4 cm LVOT Diameter 1.8 cm Aortic Root Diameter 2.5 cm LA Systolic Diameter LX 2.6 cm 3.0 - 4.0 / 2.7 - 3.8 cm M-MODE Aortic Root Diameter MM 2.8 cm LA Systolic Diameter MM 2.4 cm LA Ao Ratio MM 0.9 AV Cusp Separation MM 2.1 cm DOPPLER AV Peak Velocity 181.0 cm/s AV Peak Gradient 13.1 mmHg LVOT Peak Velocity 131.0 cm/s LVOT Peak Gradient 6.9 mmHg AV Area Cont Eq pk 1.8 cm Mitral E Point Velocity 90.3 cm/s TR Peak Velocity 227.0 cm/s TR Peak Gradient 20.6 mmHg Right Atrial Pressure 10.0 mmHg Pulmonary Artery Systolic Pressu 30.6 mmHg Right Ventricular Systolic Press 30.6 mmHg PV Peak Velocity 143.0 cm/s PV Peak Gradient 8.2 mmHg FINDINGS LEFT VENTRICLE Normal left ventricular size. Wall thickness is normal. The left ventricular systolic function is hyperdynamic with an estimated ejection fraction in the ra nge of 65- 70%. RIGHT VENTRICLE Normal right ventricular systolic function. Mild RV enlargement. LEFT ATRIUM The left atrial size is normal. RIGHT ATRIUM The right atrial size is normal. ATRIAL SEPTUM Normal atrial septal thickness without atrial level shunting by limited color doppler interrogation. AORTA The aortic root and proximal ascending aorta are normal in size on limited imaging. MITRAL VALVE [id number] mitral valve regurgitation. Mild thickening of the mitral valve leaflets. AORTIC VALVE Trileaflet aortic valve. No aortic valve stenosis or regurgitation. TRICUSPID VALVE There is mild tricuspid valve regurgitation. The estimated pulmonary arterial pressure is 31 mmHg. PULMONARY VALVE No pulmonary valve regurgitation or stenosis. VESSELS The inferior vena cava is normal in size. PERICARDIUM No pericardial effusion. Lynnette Woodall MD, FACC (Electronically Signed) Final Date:06 April 2018 18:51
[2018-04-07] MEDS: Piperacil/Tazo 3.375 GM Premix 3.375 GM/50 ML PIGGYBACK IV.SIG SCH ×4 (00:13→18:21)
[2018-04-07] MEDS: Morphine Sulfate Inj 2 MG/ML Vial IV.PUSH PRN ×4 (00:13→13:11)
[2018-04-07] MEDS: diazePAM 5 MG Tablet PO PRN (00:13)
[2018-04-07] MEDS: Acetaminophen 325 MG Tablet PO PRN (04:39)
[2018-04-07] MEDS: Vancomycin Inj 1,000 MG in Sodium Chlor 0.9% Inj 250 ML IV.SIG SCH ×3 (04:39→20:52)
[2018-04-07] MEDS: Sod Chloride 0.9% Inj 1,000 ML IV.CONT SCH ×2 (04:40→15:45)
[2018-04-07] MEDS ORDERED: Lidocaine 1% Inj 30 ML Vial I-DERMAL ONE (08:45)
[2018-04-07] MEDS: Senna/Docusate Sodium 8.6/50 MG Tablet PO SCH ×2 (09:28→20:46)
[2018-04-07] MEDS: Enoxaparin Inj 40 MG/0.4 ML Syringe SQ SCH (09:28)
--- NOTE | 2018-04-07 12:14 | P.PNVS ---
Subjective Subjective/Hospital Course: 32-year-old female with paravertebral and periaortic collection around T7 fracture Question of blood versus abscess Patient evaluated full consult dictated We will follow Mayra Oliveira Objective Vital Signs / I&O: Vital Signs 04/06/18 16:00 04/06/18 20:00 04/07/18 04:00 Temperature 98.5 F 99.1 F 101.2 F H Pulse Rate 112 H 115 H 121 H Respiratory Rate 16 16 16 Blood Pressure 125/66 99/54 L 117/56 L Pulse Oximetry 93 L 98 93 L 04/07/18 08:00 Temperature 98.5 F Pulse Rate 93 H Respiratory Rate 18 Blood Pressure 104/59 L Pulse Oximetry 94 L Intake & Output 04/06/18 04/07/18 04/07/18 18:59 06:59 18:59 Intake Total 1350 / 1350 2800 / 2800 Balance 1350 / 1350 2800 / 2800 Weight 64.2 kg Intake: IV 1350 / 1350 1600 / 1600 NS Inj 1,000 ML @ 100 mls/hr IV 1000 / 1000 1000 / 1000 .CONT .Q10H AMBIKA Rx#:[id number] Zosyn 3.375 GM Premix 3.375 gm 100 / 100 100 / 100 In 50 ml @ 100 mls/hr IV.SIG Q6H [facility]BIKA Rx#:[id number] Vancomycin Inj 1,000 MG In NS 250 / 250 500 / 500 Inj 250 ML @ 250 mls/hr IV.SIG Q8H AMBIKA Rx#:[id number] Oral 1200 / 1200 Other: # Voids 3 Date of Last Bowel Movement 04/06/18 # Bowel Movements 1 Laboratory Results - last 24 hr 04/06/18 11:40 Vancomycin Trough 5.8 Microbiology 04/04/18 23:40 Aerobic Blood Culture - Preliminary Blood - Peripheral No growth in 3 days Anaerobic Blood Culture - Preliminary No growth in 3 days 04/04/18 23:30 Aerobic Blood Culture - Preliminary Blood - Peripheral No growth in 3 days Anaerobic Blood Culture - Preliminary Staphylococcus aureus Impressions Humerus MRI 04/06/18 00:00 CONCLUSION: 1. Suspected small abscess within the distal lateral soft tissues measuring 2.0 x 1.8 cm. 2. No osteomyelitis. Thoracic Spine MRI 04/06/18 08:40 CONCLUSION: 1. Extensive paravertebral enhancement extending from the superior aspect of T4 to the inferior aspect of T10. This area of enhancement measures 2.9 cm AP by 12.0 cm sagittal dimension. Paravertebral fluid collection is noted anterior to the T6 through T8 vertebral bodies and measures 3.7 cm sagittal by 4.5 cm transverse by 2.8 cm AP dimension. The findings are suggestive of probable paravertebral abscess. There is displacement of the descending thoracic aorta anteriorly related to this collection also. 2. Evidence of a severe acute compression deformity involving T7 with underlying enhancement of the vertebral body. 3. Moderate compression deformity involving T9 and mild to moderate compression deformity involving T3. Focal enhancement involving the left posterior lateral aspect of the T6 vertebral body as well as the central portion of the T4 vertebral body also. 4. No spinal stenosis is noted. 5. Right pleural effusion. 6. Hepatosplenomegaly.
--- NOTE | 2018-04-07 14:03 | P.PNNS ---
Subjective Interval history: no changes continues to complain of mod to severe mid back pain, no new neurological complaints Physical Exam Vital signs: Vital Signs 04/06/18 16:00 04/06/18 20:00 04/07/18 04:00 Temperature 98.5 F 99.1 F 101.2 F H Pulse Rate 112 H 115 H 121 H Respiratory Rate 16 16 16 Blood Pressure 125/66 99/54 L 117/56 L Pulse Oximetry 93 L 98 93 L 04/07/18 08:00 04/07/18 12:00 Temperature 98.5 F 98.2 F Pulse Rate 93 H 102 H Respiratory Rate 18 18 Blood Pressure 104/59 L 110/63 Pulse Oximetry 94 L 94 L Intake & Output 04/06/18 04/07/18 04/07/18 18:59 06:59 18:59 Intake Total 1350 / 1350 2800 / 2800 650 / 650 Balance 1350 / 1350 2800 / 2800 650 / 650 Weight 64.2 kg Intake: IV 1350 / 1350 1600 / 1600 650 / 650 NS Inj 1,000 ML @ 100 mls/hr IV 1000 / 1000 1000 / 1000 600 / 600 .CONT .Q10H [facility] Rx#:[id number] Zosyn 3.375 GM Premix 3.375 gm 100 / 100 100 / 100 50 / 50 In 50 ml @ 100 mls/hr IV.SIG Q6H [facility] Rx#:[id number] Vancomycin Inj 1,000 MG In NS 250 / 250 500 / 500 Inj 250 ML @ 250 mls/hr IV.SIG Q8H [facility] Rx#:[id number] Oral 1200 / 1200 Other: # Voids 3 Date of Last Bowel Movement 04/06/18 # Bowel Movements 1 Narrative: Pt A&Ox3 [place] and follows equal strength x4 PERRL bowel and bladder function intact positive sensation to light touch x4 extremities pain in mid thoracic spine with movement Assessment and Plan - Plan 32yoF with T7/T9 compression fractures, presumed osteo/discitis. MRI T-spine with contrast, as you have ordered. Please expedite (routine scans may take all day). Will follow. April 06, 2018 patient neurologically stable will obtain Thoracic MRI scan TLSO ordered for OOB Flexeril ordered for muscle spasms maintain current medical management will follow April [id number] MRI T-spine reviewed by neurosurgery team, no indication for neurosurgical intervention Infectious Disease consult antibiotic management dw hospitalist yesterday regarding prevertebral abscess cont TLSO brace when out of bed and pain control advice patient regarding her history of drug use will sign off, please call prn
--- NOTE | 2018-04-07 14:04 | MB ---
cc: Hema Gonsalves MD DATE: 04/07/2018 CHIEF COMPLAINT: Left arm abscess. MESS ATTENDANT: Dr. Alonzo Colvin REASON FOR CONSULTATION: Evaluate left arm abscess complex. HISTORY OF PRESENT ILLNESS: The patient is a 32-year-old female who presents after a fall. She complains of multiple areas of pain diffusely throughout her body. She was noted to be drinking, hit her right side, and hit her head and shoulder with several lacerations. She had further workup including findings of right clavicle fracture and spine fracture at T8. She is currently being worked up by Neurosurgery with recommendation of TLSO and Orthopedic Surgery due to a clavicle fracture, who states nonoperative management. Orthopedics discovered a left arm abscess, for which they feel much more comfortable if General Surgery evaluates this abscess. The patient states the abscess has been going on for approximately 1 week and continued to get worse. The patient has history of IVDA but has not used in several days. She denies any fevers or chills. She states the pain is 8/10 and currently 7/10 with some pain medication. Worse with movement, better with lying still. She had further workup including radiologic imaging showing a 2 cm abscess. PAST MEDICAL HISTORY: IVDA, osteomyelitis, asthma. PAST SURGICAL HISTORY: Right greater toe amputation, history of I and D. SOCIAL HISTORY: Positive for smoking, ETOH and IVDA. ALLERGIES: NO KNOWN DRUG ALLERGIES. MEDICATIONS: See MAR. FAMILY HISTORY: Denies diabetes or hypertension. REVIEW OF SYSTEMS: GENERAL: Denies fevers. HEENT: Denies eye pain. NECK: Denies swelling. Complains of spine pain. LUNGS: Denies cough or wheeze. HEART: Denies palpitation or chest pain. ABDOMEN: Denies nausea or vomiting. GENITOURINARY: Denies dysuria or hematuria. ENDOCRINE: Denies polyuria or polydipsia. INTEGUMENT: Complains of abscess. PSYCHIATRIC: ETOH, IVDA abuse. PHYSICAL EXAMINATION: GENERAL: No acute distress. VITAL SIGNS: Temperature 100.8, pulse 113, respirations 16, blood pressure 115/69, saturation 95%. HEENT: Pupils equal, round, and reactive. NECK: Supple. Trachea midline. LUNGS: Bilateral air expansion, clear. HEART: S1, S2. Regular. BACK: TLSO brace in place. ABDOMEN: Soft, nontender, nondistended. EXTREMITIES: Left upper extremity 2 x 2 cm abscess at lateral aspect proximal to the antecubital fossa. EXTREMITIES: Warm and well perfused. NEUROLOGIC: GCS of 15, moving all extremities. PSYCHIATRIC: Appropriate mood. LABORATORY AND DIAGNOSTIC DATA: WBC is 15.6, hemoglobin 12.5, hematocrit 36.2, platelet 474. Sodium 133, potassium 3.4, chloride 93, BUN is 10, creatinine 0.5, glucose 108. X-ray of shoulder has no evidence of fracture of left arm. Humerus MRI: Small abscess, 2 cm. ASSESSMENT: The patient is a 32-year-old female, status post fall with spinal fracture and clavicle fracture. Orthopedics requests assistance for abscess on the lateral aspect of the left arm. PLAN: After full workup of the patient with the above-mentioned issues, discussion with Dr. Hylton, internal medicine, regarding 2017 and 2018 memos and anatomic jurisdiction reviewed with staff that Orthopedics typically is responsible from the olecranon process to proximal shoulder and Orthopedic Hand is responsible from olecranon on distally. This does sit on the lateral aspect of the arm, which is typically an orthopedic issue. New updated standards state that regardless whether complex or simple, Orthopedics is typically responsible for this area, but we will be happy to assist Orthopedics in management of this, but would recommend they update their 2017 guidelines to 2018 guidelines. Recommend continued antibiotics and pain control. Defer to Medicine for medical management. We will plan for I and D at bedside. Thank you for consultation. MD MORENITA Sebastian/mirtha , 01:10 PM , 01:26 PM
--- NOTE | 2018-04-07 14:08 | MP ---
cc: Hema Gonsalves MD DATE OF OPERATION: 04/07/2018 PREOPERATIVE DIAGNOSIS: Left upper extremity left lateral arm abscess, 2 cm. POSTOPERATIVE DIAGNOSIS: Left upper extremity left lateral arm abscess, 2 cm. PROCEDURE PERFORMED: Bedside incision and drainage with excisional debridement of soft tissue of left upper extremity left arm 2 cm abscess. SURGEON: Hema Gonsalves MD CLOTH BLEACHING SUPERVISOR: None. ANESTHESIA: Local 1% lidocaine. FINDINGS: Purulent pus fluid-filled cavity. SPECIMENS: Pus sent for culture. COMPLICATIONS: None. WOUND CLASSIFICATION: Dirty. INDICATIONS: The patient is a 32-year-old female who presented status post fall with orthopedic clavicle fracture along with spine fracture. Workups by both Orthopedic and Neurosurgery for treatment of this. Patient with history of IVDA, who developed abscess on the left upper extremity. Given new updated guidelines in 2018 specifying anatomical charts where Orthopedics is responsible for the olecranon to shoulder, despite this, requesting assistance for treatment from General Surgery. DESCRIPTION OF PROCEDURE: The patient was prepped and draped in usual sterile fashion. Brief timeout done stating correct patient, procedure, surgical site and all were in agreement. Attention was directed to the left lateral arm where a 1.5 cm stab jose incision was made after injection of local anesthetic. This was done with an 11 blade. Significant purulent drainage noted. A Q-tip was used for culture swab to send for cultures. Irrigation done to cavity. Cavity packed with 4 x 4 wrapped with Yannick and sterile dressings. No complication. The patient tolerated the procedure. MD MORENITA Sebastian/mirtha , 01:10 PM , 02:06 PM
[2018-04-07] MEDS ORDERED: Acetaminophen 325 MG Tablet PO PRN (14:42)
--- NOTE | 2018-04-07 15:30 | P.PNIM ---
Subjective Interval history: Follow-up for IV drug use, sepsis, paravertebral abscess in the thoracic area, left upper extremity abscess. Patient is resting in bed. Complains of significant back pain. She has had fever overnight with T-max 101.2 F. Physical Exam Vital signs: Vital Signs 04/06/18 16:00 04/06/18 20:00 04/07/18 04:00 Temperature 98.5 F 99.1 F 101.2 F H Pulse Rate 112 H 115 H 121 H Respiratory Rate 16 16 16 Blood Pressure 125/66 99/54 L 117/56 L Pulse Oximetry 93 L 98 93 L 04/07/18 08:00 04/07/18 12:00 Temperature 98.5 F 98.2 F Pulse Rate 93 H 102 H Respiratory Rate 18 18 Blood Pressure 104/59 L 110/63 Pulse Oximetry 94 L 94 L Intake & Output 04/06/18 04/07/18 04/07/18 18:59 06:59 18:59 Intake Total 1350 / 1350 2800 / 2800 650 / 650 Balance 1350 / 1350 2800 / 2800 650 / 650 Weight 64.2 kg Intake: IV 1350 / 1350 1600 / 1600 650 / 650 NS Inj 1,000 ML @ 100 mls/hr IV 1000 / 1000 1000 / 1000 600 / 600 .CONT .Q10H [facility] Rx#:[id number] Zosyn 3.375 GM Premix 3.375 gm 100 / 100 100 / 100 50 / 50 In 50 ml @ 100 mls/hr IV.SIG Q6H [facility] Rx#:[id number] Vancomycin Inj 1,000 MG In NS 250 / 250 500 / 500 Inj 250 ML @ 250 mls/hr IV.SIG Q8H [facility] Rx#:[id number] Oral 1200 / 1200 Other: # Voids 3 Date of Last Bowel Movement 04/06/18 04/06/18 # Bowel Movements 1 Narrative: GENERAL: Well-nourished, well-developed patient. SKIN: Warm and dry. No splinter hemorrhage noted. HEAD: Normocephalic. EYES: No scleral icterus. No injection or drainage. NECK: Supple, trachea midline. No JVD or lymphadenopathy. CARDIOVASCULAR: Regular rhythm, tachycardic without murmurs, gallops, or rubs. RESPIRATORY: Breath sounds equal bilaterally. No accessory muscle use. GASTROINTESTINAL: Abdomen soft, non-tender, nondistended. MUSCULOSKELETAL: No cyanosis, or edema. Status post IND of the left upper extremity abscess. BACK: Nontender without obvious deformity. No CVA tenderness. Results Labs CBC & Chem 7: 04/06/18 06:32 04/06/18 06:32 Labs: Microbiology 04/04/18 23:40 Blood - Peripheral Aerobic Blood Culture - Preliminary No growth in 3 days 04/04/18 23:40 Blood - Peripheral Anaerobic Blood Culture - Preliminary No growth in 3 days 04/04/18 23:30 Blood - Peripheral Aerobic Blood Culture - Preliminary No growth in 3 days 04/04/18 23:30 Blood - Peripheral Anaerobic Blood Culture - Preliminary Staphylococcus aureus Assessment and Plan Plan Ms. Ambrocio is a 32-year-old female with a history of IV drug abuse who presented to the emergency department due to generalized pain. She apparently was drinking alcohol and fell about 2 weeks ago. She noticed a painful nodule on her left upper extremity above the antecubital fossa. MRI of the thoracic spine shows large paravertebral abscess formation there is also pressing against the descending aorta. Sepsis (heart rate of 100, WBC over 15, infection source left upper extremity abscess, paravertebral abscess) Left upper extremity abscess Paravertebral abscess of T6-T10 T7 compression deformity Probable loculated right pleural effusion Free-flowing left effusion -Vancomycin and Zosyn. Transthoracic echocardiogram completed -shows no evidence of vegetation. Consulted infectious disease as well as Dr. Jones due to paravertebral abscess with mass effect on descending aorta Appreciate neurosurgery, general surgery, orthopedic surgery input. General surgery evaluated left upper extremity abscess and performed I&D today 04/07/2018. Continue acetaminophen, [place], morphine for pain management. Also continue Flexeril. Right-sided clavicular fracture Orthopedic surgery recommends nonoperative management. Sling ordered for comfort. IV drug abuse Patient admits to using IV Dilaudid as well as heroin. Patient has a history of IV drug related infections before. Patient is very remorseful. 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 Full code. Lovenox subcutaneous for DVT prophylaxis. Progress Note: Quality VTE Deep Vein Thrombosis/Pulmonary Embolism Present on Admission: No
[2018-04-07] MEDS: Morphine Inj 4 MG/ML Vial IV.PUSH PRN (19:13)
--- NOTE | 2018-04-07 19:27 | MB ---
cc: Yashira Jones MD DATE: 04/07/2018 DIGITAL ACCOUNT COORDINATOR: Yashira Jones MD, of vascular surgery. REASON FOR CONSULTATION: Periaortic and paravertebral collection in the chest, comminuted fracture of T7. HISTORY OF PRESENT ILLNESS: This 32-year-old female presented to the hospital after falling drunk and hitting the right side of her head and the shoulder about 2 weeks before the presentation. She is a known IV drug abuser and had some fevers. The patient was noted to have an abscess of the arm, which was drained, and then a CT scan based on her pain revealed a collection in the paravertebral space and periaortic around T7 up and down. A question arose about the nature of this and possible need for evacuation. Neurosurgery was consulted as well. PAST MEDICAL HISTORY: Drug abuse, asthma. PAST SURGICAL HISTORY: Wrist surgery, amputation of greater toe, osteomyelitis. SOCIAL HISTORY: The patient smokes a pack a day, drinks heavily and uses intravenous narcotics. PHYSICAL EXAMINATION: GENERAL: Reveals 32-year-old female. HEENT: Normocephalic. No trauma to the head. Pupils equal, reactive. Extraocular muscles intact. The patient is awake, alert and oriented; however, a very poor historian. The only thing she wanted to talk to me was if she could get more pain medicines. NECK: Bilateral carotid pulses. No bruits. CHEST: Bilateral breath sounds. HEART: Regular rhythm. ABDOMEN: Soft. Active bowel sounds. BACK: Appears to be normal actually. EXTREMITIES: Within normal limits. Good proximal and distal pulses and no signs of vascular deficit. Throughout the skin of the upper and lower extremities, there are multiple old and new puncture sites from previous drug abuse and tiny pustules. The patient just had recently an abscess drained of the arm and this is wrapped up. NEUROLOGIC: The patient is grossly intact. IMPRESSION AND RECOMMENDATIONS: I reviewed laboratory and diagnostic procedures. There is indeed a paravertebral collection pushing the thoracic aorta anteriorly. This is about 2 cm thick and about 10 cm long. I reviewed this with interventional radiology, Dr. Gordo Coley. At this point, I have no reason to suspect this being an infectious process, which it could be. Doing a thoracotomy for this would be quite a big operation and this patient would not do well postoperatively considering her drug abuse and need for heavy narcotics. In the modern era, the most appropriate way would be to access this percutaneously and see what it is and go from there. Most likely this is only an old collection of blood rather than an infected collection. It appears to be pretty much well circumscribed and does not appear to be kind of diffuse. Therefore, I will ask interventional radiology to go ahead and aspirate this and we will go from there. Surgery always, of course if possible, should be a last resort option. I thank you very much for this referral. MD MONSERRAT Burks/delilah , 06:23 PM , 06:33 PM
[2018-04-07] MEDS ORDERED: Pharmacy Ordered Lab Info OTHER ONE (19:45)
[2018-04-08] MEDS: Piperacil/Tazo 3.375 GM Premix 3.375 GM/50 ML PIGGYBACK IV.SIG SCH ×4 (00:17→17:32)
[2018-04-08] MEDS: Morphine Inj 4 MG/ML Vial IV.PUSH PRN ×4 (00:17→20:19)
[2018-04-08] MEDS: Sod Chloride 0.9% Inj 1,000 ML IV.CONT SCH ×3 (03:45→22:04)
[2018-04-08] MEDS: Vancomycin Inj 1,250 MG in Sodium Chlor 0.9% Inj 250 ML IV.SIG SCH ×3 (03:54→22:03)
[2018-04-08] MEDS: Enoxaparin Inj 40 MG/0.4 ML Syringe SQ SCH (08:46)
[2018-04-08] MEDS: Senna/Docusate Sodium 8.6/50 MG Tablet PO SCH ×2 (08:46→20:18)
--- NOTE | 2018-04-08 10:35 | P.PNID ---
Subjective Remarks: Patient is a 32-year-old female, presented to the hospital complaining of severe pain especially on her right shoulder and in her back. She apparently fell and she had been drinking and she fell on her right side and hit her head and shoulder. This was about 2 weeks ago. Since then she has had pain, but the pain started increasing. Patient has known IV drug use and has been injecting. She also noted a painful nodule on her left biceps. The last 2 days she has been having fevers. Patient also has been having cough for the last week and has been bringing up some grayish phlegm. Denies any chest pain. She said she has had some vomiting. No diarrhea. Denies any dysuria, but she noted that her urine looks very dark and concentrated. Patient has been admitted, and she had 2 blood cultures done one is growing staph aureus. She has been found to have a paravertebral fluid collection with some pushing on the thoracic aorta. She has loculated effusion on the right, and a free- flowing effusion on the left side. Patient also with evidence of compression fracture severe in T7, and has other areas of fracture in her thoracic spine. Patient is being evaluated by neurosurgery. Orthopedic ulcers on the patient for to evaluate the abscess on her left upper arm. Her WBC is elevated at 15, 000. Urinalysis is okay. Infectious disease consultation has been requested to assist with evaluation and treatment. Notes reviewed Still with fevers C/O back pain Dr Roxanne lucas reviewed One BC with MSSA Unable to do BC ordered yesterday NPO for IR drainage/aspiration paravertebral fluid collection Had I and D L arm abscess - C/S pending; G/S mixed Antibiotics: Vancomycin Zosyn Lines: PIV Past Medical History: Amputated great toe of right foot Asthma Osteomyelitis Status post wrist surgery Allergies/Adverse Reactions: Allergies No Known Allergies Allergy (Verified 01/21/18 11:21) Objective Vital Signs 04/07/18 12:00 04/07/18 16:00 04/07/18 20:00 Temperature 98.2 F 101.2 F H 99.2 F Pulse Rate 102 H 111 H 104 H Respiratory Rate 18 20 16 Blood Pressure 110/63 112/54 L 102/56 L Pulse Oximetry 94 L 96 93 L 04/08/18 00:00 04/08/18 04:00 04/08/18 04:42 Temperature 98.0 F 98.4 F Pulse Rate 92 H 102 H Respiratory Rate 14 16 17 Blood Pressure 102/58 L 101/59 L Pulse Oximetry 95 95 04/08/18 07:31 04/08/18 08:00 Temperature 100.1 F H Pulse Rate 108 H Respiratory Rate 17 20 Blood Pressure 127/77 Pulse Oximetry 93 L Intake & Output 04/07/18 04/08/18 04/08/18 18:59 06:59 18:59 Intake Total 1430 / 1430 1612.5 / 1612.5 1050 / 1050 Balance 1430 / 1430 1612.5 / 1612.5 1050 / 1050 Weight 59.1 kg Intake: IV 950 / 950 1112.5 / 1112.5 1050 / 1050 NS Inj 1,000 ML @ 100 mls/hr IV 600 / 600 550 / 550 1000 / 1000 .CONT .Q10H [facility] Rx#:[id number] Zosyn 3.375 GM Premix 3.375 gm 100 / 100 50 / 50 50 / 50 In 50 ml @ 100 mls/hr IV.SIG Q6H [facility] Rx#:[id number] Vancomycin Inj 1,000 MG In NS 250 / 250 250 / 250 Inj 250 ML @ 250 mls/hr IV.SIG Q8H [facility] Rx#:[id number] Vancomycin Inj 1,250 MG In NS 262.5 / 262.5 Inj 250 ML @ 250 mls/hr IV.SIG Q8H [facility] Rx#:[id number] Oral 480 / 480 500 / 500 Other: # Voids 3 3 Date of Last Bowel Movement 04/06/18 04/07/18 04/07/18 10:10 Abscess - Arm Gram Stain - Final 04/07/18 10:10 Abscess - Arm Wound Culture - Pending 04/04/18 23:40 Blood - Peripheral Aerobic Blood Culture - Preliminary No growth in 3 days 04/04/18 23:40 Blood - Peripheral Anaerobic Blood Culture - Preliminary No growth in 3 days 04/04/18 23:30 Blood - Peripheral Aerobic Blood Culture - Preliminary No growth in 3 days 04/04/18 23:30 Blood - Peripheral Anaerobic Blood Culture - Preliminary Staphylococcus aureus Lab - Chemistry Results 04/06/18 06:32 Sodium 134 L Potassium 3.6 Chloride 98 Carbon Dioxide 28.3 Anion Gap 8 BUN 12 Creatinine 0.57 Estimated GFR Greater than 89 Random Glucose 109 H Calcium 8.1 L Magnesium 2.0 Imaging: ITS Impressions Shoulder X-Ray 04/04/18 21:31 CONCLUSION: Distal right clavicle fracture Abdomen/Pelvis CT 04/04/18 21:32 CONCLUSION: 1. Severe compression fracture at T7 with prominent prevertebral hemorrhage which would be discussed on CT pulmonary angiogram. Fracture also T9. 2. Small amount of pelvic free fluid. Cervical Spine CT 04/04/18 21:32 CONCLUSION: 1. No acute findings on cervical spine CT. Chest CTA 04/04/18 21:32 CONCLUSION: 1. Negative for pulmonary embolus. 2. Abnormal complex presumed fluid collection in the paravertebral region of the lower thoracic spine centered around a severe compression deformity at the lower thoracic spine, probably T8. There is also a loculated right pleural effusion. Cannot exclude infection. Would recommend MRI of the thoracic spine to assess for discitis or osteomyelitis. 3. Small free-flowing left effusion. Subsegmental basilar airspace disease, right greater than left. 4. Prior left manubrial fracture with partial nonunion. Chest X-Ray 04/04/18 21:32 CONCLUSION: Right basilar infiltrate. Head CT 04/04/18 21:32 CONCLUSION: 1. No acute intracranial abnormalities. . . Humerus MRI 04/06/18 00:00 CONCLUSION: 1. Suspected small abscess within the distal lateral soft tissues measuring 2.0 x 1.8 cm. 2. No osteomyelitis. Thoracic Spine MRI 04/06/18 08:40 CONCLUSION: 1. Extensive paravertebral enhancement extending from the superior aspect of T4 to the inferior aspect of T10. This area of enhancement measures 2.9 cm AP by 12.0 cm sagittal dimension. Paravertebral fluid collection is noted anterior to the T6 through T8 vertebral bodies and measures 3.7 cm sagittal by 4.5 cm transverse by 2.8 cm AP dimension. The findings are suggestive of probable paravertebral abscess. There is displacement of the descending thoracic aorta anteriorly related to this collection also. 2. Evidence of a severe acute compression deformity involving T7 with underlying enhancement of the vertebral body. 3. Moderate compression deformity involving T9 and mild to moderate compression deformity involving T3. Focal enhancement involving the left posterior lateral aspect of the T6 vertebral body as well as the central portion of the T4 vertebral body also. 4. No spinal stenosis is noted. 5. Right pleural effusion. 6. Hepatosplenomegaly. Physical Exam: GENERAL: awake and alert, not in respiratory distress. Patient is wearing a thoracic brace SKIN: Warm and dry. No generalized rash, no ecchymoses and no evidence of embolic lesions. HEAD: Atraumatic. Normocephalic. No temporal wasting, or tenderness. EYES: [place] conjunctiva. No petechia or hemorrhage. Pupils equal, round and reactive to light. Extraocular movements full and intact. No scleral icterus. No injection or drainage. EARS, NOSE AND THROAT: Nose without bleeding or purulent nasal discharge. No sinus tenderness. Mucous membranes pink and moist. No oral lesions noted. No exudate. No oral thrush. NECK: Trachea midline. Supple and not tender, no meningeal signs CARDIOVASCULAR: Regular rate and rhythm. No murmurs, rubs or gallops heard RESPIRATORY: Clear to auscultation. Breath sounds equal bilaterally. No rales , wheezing or rhonchi ABDOMEN: Soft, non-tender, nondistended. Bowel sounds present and normoactive. No guarding. No rebound. No organomegaly. EXTREMITIES: No clubbing, cyanosis, or edema. Dry dressing L upper arm. No joint effusion, has good ROM. No calf tenderness. NEUROLOGICAL: Grossly non-focal PSYCHIATRIC: Normal affect, calm and cooperative. LINE: No evidence of infection Assessment and Plan - Plan Impression Staph aureus sepsis - worrisome for IE Paravertebral abscess, ?into thoracic cavity (has loculated effusion R) Abscess LUE,superficial Multiple thoracic spine fracture R clavicular fracture Recommendation Repeat 2 BC TULIO Will ask IR for central line To have IR aspirate paravertebral fluid collection Baseline ESR and CRP Continue Vanco and Zosyn Adjust Abx once C/S finalized Follow temps Follow C/S Monitor progress D/W Dr Hylton ([facility]) Explained plan to the patient
--- NOTE | 2018-04-08 11:18 | P.PNGS ---
Subjective Interval history: Resting in bed NPO for IR procedure today Physical Exam Vital signs: Vital Signs 04/07/18 12:00 04/07/18 16:00 04/07/18 20:00 Temperature 98.2 F 101.2 F H 99.2 F Pulse Rate 102 H 111 H 104 H Respiratory Rate 18 20 16 Blood Pressure 110/63 112/54 L 102/56 L Pulse Oximetry 94 L 96 93 L 04/08/18 00:00 04/08/18 04:00 04/08/18 04:42 Temperature 98.0 F 98.4 F Pulse Rate 92 H 102 H Respiratory Rate 14 16 17 Blood Pressure 102/58 L 101/59 L Pulse Oximetry 95 95 04/08/18 07:31 04/08/18 08:00 Temperature 100.1 F H Pulse Rate 108 H Respiratory Rate 17 20 Blood Pressure 127/77 Pulse Oximetry 93 L Intake & Output 04/07/18 04/08/18 04/08/18 18:59 06:59 18:59 Intake Total 1430 / 1430 1612.5 / 1612.5 1050 / 1050 Balance 1430 / 1430 1612.5 / 1612.5 1050 / 1050 Weight 59.1 kg Intake: IV 950 / 950 1112.5 / 1112.5 1050 / 1050 NS Inj 1,000 ML @ 100 mls/hr IV 600 / 600 550 / 550 1000 / 1000 .CONT .Q10H [facility] Rx#:[id number] Zosyn 3.375 GM Premix 3.375 gm 100 / 100 50 / 50 50 / 50 In 50 ml @ 100 mls/hr IV.SIG Q6H [facility] Rx#:[id number] Vancomycin Inj 1,000 MG In NS 250 / 250 250 / 250 Inj 250 ML @ 250 mls/hr IV.SIG Q8H [facility] Rx#:[id number] Vancomycin Inj 1,250 MG In NS 262.5 / 262.5 Inj 250 ML @ 250 mls/hr IV.SIG Q8H [facility] Rx#:[id number] Oral 480 / 480 500 / 500 Other: # Voids 3 3 Date of Last Bowel Movement 04/06/18 04/07/18 Narrative: Alert and awake LEFT arm--- superficial abscess--- packing removed and replaced Results - Labs 04/06/18 06:32 04/06/18 06:32 Laboratory Results - last 24 hr 04/07/18 20:00 Vancomycin Trough 15.4 H - Imaging Imaging: ITS Impressions Shoulder X-Ray 04/04/18 21:31 CONCLUSION: Distal right clavicle fracture Abdomen/Pelvis CT 04/04/18 21:32 CONCLUSION: 1. Severe compression fracture at T7 with prominent prevertebral hemorrhage which would be discussed on CT pulmonary angiogram. Fracture also T9. 2. Small amount of pelvic free fluid. Cervical Spine CT 04/04/18 21:32 CONCLUSION: 1. No acute findings on cervical spine CT. Chest CTA 04/04/18 21:32 CONCLUSION: 1. Negative for pulmonary embolus. 2. Abnormal complex presumed fluid collection in the paravertebral region of the lower thoracic spine centered around a severe compression deformity at the lower thoracic spine, probably T8. There is also a loculated right pleural effusion. Cannot exclude infection. Would recommend MRI of the thoracic spine to assess for discitis or osteomyelitis. 3. Small free-flowing left effusion. Subsegmental basilar airspace disease, right greater than left. 4. Prior left manubrial fracture with partial nonunion. Chest X-Ray 04/04/18 21:32 CONCLUSION: Right basilar infiltrate. Head CT 04/04/18 21:32 CONCLUSION: 1. No acute intracranial abnormalities. . . Humerus MRI 04/06/18 00:00 CONCLUSION: 1. Suspected small abscess within the distal lateral soft tissues measuring 2.0 x 1.8 cm. 2. No osteomyelitis. Thoracic Spine MRI 04/06/18 08:40 CONCLUSION: 1. Extensive paravertebral enhancement extending from the superior aspect of T4 to the inferior aspect of T10. This area of enhancement measures 2.9 cm AP by 12.0 cm sagittal dimension. Paravertebral fluid collection is noted anterior to the T6 through T8 vertebral bodies and measures 3.7 cm sagittal by 4.5 cm transverse by 2.8 cm AP dimension. The findings are suggestive of probable paravertebral abscess. There is displacement of the descending thoracic aorta anteriorly related to this collection also. 2. Evidence of a severe acute compression deformity involving T7 with underlying enhancement of the vertebral body. 3. Moderate compression deformity involving T9 and mild to moderate compression deformity involving T3. Focal enhancement involving the left posterior lateral aspect of the T6 vertebral body as well as the central portion of the T4 vertebral body also. 4. No spinal stenosis is noted. 5. Right pleural effusion. 6. Hepatosplenomegaly. Assessment and Plan - Plan 32 year old female with multiple injuries; LEFT upper extremity abscess -S/p bedside I&D -Await cultures -Continue daily dressing changes -GS will sign off
[2018-04-08] MEDS ORDERED: fentaNYL Citrate Inj 250 MCG/5 ML Ampul ONE (14:31)
--- NOTE | 2018-04-08 16:14 | IR ---
EXAM DATE: 04/08/2018 2:50 PM EST AGE/SEX: 32 years / Female INDICATIONS: Patient presents with history of IV drug use and a fall in need of a Central Line place ment. CLINICAL DATA: This is the patient's initial encounter. Patient reports that signs and symptoms have been present for 4 - 6 days and indicates a pain score of 8/10. MEDICAL/SURGICAL HISTORY: Asthma. Osteomyelitis. . Amputated great toe of right foot, Status p ost wrist surgery. COMPARISON: [facility], CHEST 1V SINGLE AP, 04/04/2018. . FLUORO TIME (min): 0.07 IMAGE SERIES: 2 RADIATION DOSE: 0 mGY CAK ACCESS SITE: Right internal jugular vein DEVICE(S): 7 Italian triple lumen Arrow central line 16 cm . . PROCEDURE : 1. Ultrasound guided venipuncture. 2. Fluoroscopic guidance. 3. Central line placement. The risks, benefits and alternatives to the procedure were explained and verbal and written consent w as obtained. The site was prepped in sterile fashion. Full sterile technique was used, including ca p, mask, sterile gloves and gown and a large sterile sheet. Hand hygiene and 2% chlorhexidine prep w as utilized per protocol for cutaneous antisepsis with appropriate dry time for site. Sterile gel an d sterile probe cover were utilized for ultrasound guidance. The skin and subcutaneous tissues were infiltrated with local anesthetic solution. A suitable site a sofiya the vein was selected with ultrasound and fluoroscopic guidance. A small incision was made. Th e vein was accessed under direct ultrasound visualization using the micropuncture technique. The zack ropuncture set was exchanged for a 0.035 wire. The tract was dilated. The catheter was advanced int o position under direct fluoroscopic visualization, and was advanced with the tip at the junction of the superior vena cava and rt atrium. The catheter was fixed in place with suture and a sterile dres sing was applied. The patient tolerated the procedure well and there were no complications. CONCLUSION: 1. Uncomplicated line placement as above. Electronically signed by: Maury Cancino MD Board Certified Radiologist 04/08/2018 4:13 PM EST
--- NOTE | 2018-04-08 16:14 | CT ---
EXAM DATE: 04/08/2018 3:44 PM EST AGE/SEX: 32 years / Female INDICATIONS: History of T7 spinal fracture and paraspinal fluid collection. Patient has a history of IV drug use and there is question of potential pathologic fracture. CT-guided aspiration of the para spinal fluid has been requested. CLINICAL DATA: This is the patient's initial encounter. Patient reports that signs and symptoms have been present for 1 day and indicates a pain score of 10/10. MEDICAL/SURGICAL HISTORY: Osteomyelitis. Recent fall None. COMPARISON: No prior exams available for comparison. BIOPSY SITE: T7 paraspinal fluid MEDICATION(S): 3mg midazolam (Versed) IV 150mcg fentanyl (Sublimaze) IV DEVICE(S): 19 gauge Introducer FLUID: Total volume of 5 of cloudy, red fluid was removed. Fluid was sent to lab for ordered studies.. . . PROCEDURE : CT guided aspiration of the T7 paraspinal fluid. The risks, benefits and alternatives to the procedure were explained and verbal and written consent w as obtained. Using automated exposure control and adjustment of the mA and/or kV according to patient size, radiation dose was kept as low as reasonably achievable to obtain optimal diagnostic quality i mages. The site was prepped in sterile fashion. Full sterile technique was used, including cap, ma sk, sterile gloves and gown and a large sterile sheet. Hand hygiene and 2% chlorhexidine and/or beta dine/alcohol prep was utilized per protocol for cutaneous antisepsis. The skin and subcutaneous tiss ues were infiltrated with local anesthetic solution. DICOM format image data is available electronic ally for review and comparison. Using CT guidance the prescribed site was localized. 19-gauge needle was advanced into the paraspinal collection under careful CT guidance. Approximately 5 cc of bloody fluid was aspirated. No additiona l fluid could be removed. Needle was then withdrawn. The patient tolerated the procedure well and there were no complications. The patient tolerated the procedure well and there were no complications. The patient was sent to post anesthesia recovery in s table condition. FINDINGS: CONCLUSION: 1. Uncomplicated CT guided aspiration of T7 paraspinal fluid, as above.. Electronically signed by: Maury Cancino MD Board Certified Radiologist 04/08/2018 4:13 PM EST
--- NOTE | 2018-04-08 16:18 | P.PNVS ---
Subjective Subjective/Hospital Course: 32-year-old female with paravertebral and periaortic collection around T7 fracture Question of blood versus abscess Patient evaluated full consult dictated We will follow Mayra Oliveira 04/08/2018 Today patient underwent successful aspiration of the prevertebral collection the level of T7 in interventional radiology/CT About 5 cc of blood obtained but no purulent material Patient with procedure well cultures have been sent Nothing to add from surgical point at this time Objective Vital Signs / I&O: Vital Signs 04/07/18 20:00 04/08/18 00:00 04/08/18 04:00 Temperature 99.2 F 98.0 F 98.4 F Pulse Rate 104 H 92 H 102 H Respiratory Rate 16 14 16 Blood Pressure 102/56 L 102/58 L 101/59 L Pulse Oximetry 93 L 95 95 04/08/18 04:42 04/08/18 07:31 04/08/18 08:00 Temperature 100.1 F H Pulse Rate 108 H Respiratory Rate 17 17 20 Blood Pressure 127/77 Pulse Oximetry 93 L 04/08/18 12:00 04/08/18 15:40 04/08/18 15:55 Temperature 97.8 F 98.7 F Pulse Rate 98 H 107 H 105 H Respiratory Rate 20 18 16 Blood Pressure 133/80 134/87 130/73 Pulse Oximetry 96 92 L 93 L Intake & Output 04/07/18 04/08/18 04/08/18 18:59 06:59 18:59 Intake Total 1430 / 1430 1612.5 / 1612.5 1362.5 / 1362.5 Balance 1430 / 1430 1612.5 / 1612.5 1362.5 / 1362.5 Weight 59.1 kg Intake: IV 950 / 950 1112.5 / 1112.5 1362.5 / 1362.5 NS Inj 1,000 ML @ 100 mls/hr IV 600 / 600 550 / 550 1000 / 1000 .CONT .Q10H [facility] Rx#:[id number] Zosyn 3.375 GM Premix 3.375 gm 100 / 100 50 / 50 100 / 100 In 50 ml @ 100 mls/hr IV.SIG Q6H [facility] Rx#:[id number] Vancomycin Inj 1,000 MG In NS 250 / 250 250 / 250 Inj 250 ML @ 250 mls/hr IV.SIG Q8H [facility] Rx#:[id number] Vancomycin Inj 1,250 MG In NS 262.5 / 262.5 262.5 / 262.5 Inj 250 ML @ 250 mls/hr IV.SIG Q8H [facility] Rx#:[id number] Oral 480 / 480 500 / 500 Other: # Voids 3 3 Date of Last Bowel Movement 04/06/18 04/07/18 Laboratory Results - last 24 hr 04/07/18 20:00 Vancomycin Trough 15.4 H Microbiology 04/07/18 10:10 Gram Stain - Final Abscess - Arm Wound Culture - Preliminary Heavy growth normal skin babatunde at 24 hours 04/04/18 23:40 Aerobic Blood Culture - Preliminary Blood - Peripheral No growth in 4 days Anaerobic Blood Culture - Preliminary No growth in 4 days 04/04/18 23:30 Aerobic Blood Culture - Preliminary Blood - Peripheral No growth in 4 days Anaerobic Blood Culture - Final Staphylococcus aureus Impressions Central Venous Line 04/08/18 00:00 CONCLUSION: 1. Uncomplicated line placement as above. Needle Aspiration CT 04/08/18 00:00 CONCLUSION: 1. Uncomplicated CT guided aspiration of T7 paraspinal fluid, as above..
--- NOTE | 2018-04-08 18:36 | P.PNIM ---
Subjective Interval history: Follow-up for IV drug use, sepsis, paravertebral abscess in the thoracic area, left upper extremity abscess. Patient is doing well today. Had low grade fever, 100.1F. Tolerating diet well. Physical Exam Vital signs: Vital Signs 04/07/18 20:00 04/08/18 00:00 04/08/18 04:00 Temperature 99.2 F 98.0 F 98.4 F Pulse Rate 104 H 92 H 102 H Respiratory Rate 16 14 16 Blood Pressure 102/56 L 102/58 L 101/59 L Pulse Oximetry 93 L 95 95 04/08/18 04:42 04/08/18 07:31 04/08/18 08:00 Temperature 100.1 F H Pulse Rate 108 H Respiratory Rate 17 17 20 Blood Pressure 127/77 Pulse Oximetry 93 L 04/08/18 12:00 04/08/18 15:40 04/08/18 15:55 Temperature 97.8 F 98.7 F Pulse Rate 98 H 107 H 105 H Respiratory Rate 20 18 16 Blood Pressure 133/80 134/87 130/73 Pulse Oximetry 96 92 L 93 L 04/08/18 16:25 Temperature Pulse Rate 107 H Respiratory Rate 16 Blood Pressure 128/74 Pulse Oximetry 93 L Intake & Output 04/07/18 04/08/18 04/08/18 18:59 06:59 18:59 Intake Total 1430 / 1430 1612.5 / 1612.5 1362.5 / 1362.5 Balance 1430 / 1430 1612.5 / 1612.5 1362.5 / 1362.5 Weight 59.1 kg Intake: IV 950 / 950 1112.5 / 1112.5 1362.5 / 1362.5 NS Inj 1,000 ML @ 100 mls/hr IV 600 / 600 550 / 550 1000 / 1000 .CONT .Q10H [facility] Rx#:[id number] Zosyn 3.375 GM Premix 3.375 gm 100 / 100 50 / 50 100 / 100 In 50 ml @ 100 mls/hr IV.SIG Q6H [facility] Rx#:[id number] Vancomycin Inj 1,000 MG In NS 250 / 250 250 / 250 Inj 250 ML @ 250 mls/hr IV.SIG Q8H [facility] Rx#:[id number] Vancomycin Inj 1,250 MG In NS 262.5 / 262.5 262.5 / 262.5 Inj 250 ML @ 250 mls/hr IV.SIG Q8H [facility] Rx#:[id number] Oral 480 / 480 500 / 500 Other: # Voids 3 3 Date of Last Bowel Movement 04/06/18 04/07/18 Narrative: GENERAL: Well-nourished, well-developed patient. SKIN: Warm and dry. No splinter hemorrhage noted. HEAD: Normocephalic. EYES: No scleral icterus. No injection or drainage. NECK: Supple, trachea midline. No JVD or lymphadenopathy. CARDIOVASCULAR: Regular rhythm, tachycardic without murmurs, gallops, or rubs. RESPIRATORY: Breath sounds equal bilaterally. No accessory muscle use. GASTROINTESTINAL: Abdomen soft, non-tender, nondistended. MUSCULOSKELETAL: No cyanosis, or edema. Status post I&D of the left upper extremity abscess. BACK: Nontender without obvious deformity. No CVA tenderness. Results Labs CBC & Chem 7: 04/06/18 06:32 04/06/18 06:32 Labs: Microbiology 04/07/18 10:10 Abscess - Arm Gram Stain - Final 04/07/18 10:10 Abscess - Arm Wound Culture - Preliminary Heavy growth normal skin babatunde at 24 hours 04/04/18 23:40 Blood - Peripheral Aerobic Blood Culture - Preliminary No growth in 4 days 04/04/18 23:40 Blood - Peripheral Anaerobic Blood Culture - Preliminary No growth in 4 days 04/04/18 23:30 Blood - Peripheral Aerobic Blood Culture - Preliminary No growth in 4 days 04/04/18 23:30 Blood - Peripheral Anaerobic Blood Culture - Final Staphylococcus aureus Imaging Imaging: Impressions Central Venous Line 04/08/18 00:00 CONCLUSION: 1. Uncomplicated line placement as above. Needle Aspiration CT 04/08/18 00:[address] CONCLUSION: [address] Uncom[address] CT guided aspiration of T7 paraspinal fluid, as above.. Assessment and Plan Plan Ms. Ambrocio is a 32-year-old female with a history of IV drug abuse who presented to the emergency department due to generalized pain. She apparently was drinking alcohol and fell about 2 weeks ago. She noticed a painful nodule on her left upper extremity above the antecubital fossa. MRI of the thoracic spine shows large paravertebral abscess formation there is also pressing against the descending aorta. Sepsis (heart rate of 100, WBC over 15, infection source left upper extremity abscess, paravertebral abscess) Left upper extremity abscess Paravertebral abscess of T6-T10 T7 compression deformity Probable loculated right pleural effusion Free-flowing left effusion -Vancomycin and Zosyn. Transthoracic echocardiogram completed -shows no evidence of vegetation. Consulted infectious disease as well as Dr. Jones due to paravertebral abscess with mass effect on descending aorta Appreciate neurosurgery, general surgery, orthopedic surgery input. General surgery evaluated left upper extremity abscess and performed I&D 2018. Continue acetaminophen, [place], morphine for pain management. Also continue Flexeril. -CT guided paravertebral fluid aspiration 04/08/2018. Follow cultures. Staph Aureus bacteremia -Discussed with ID. Will consult Cardiology for possible TULIO. -Obtain Central line since access and blood work seem to be difficult to do. D/ W ID. Right-sided clavicular fracture Orthopedic surgery recommends nonoperative management. Sling ordered for comfort. IV drug abuse Patient admits to using IV Dilaudid as well as heroin. Patient has a history of IV drug related infections before. Patient is very remorseful. 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 Full code. Lovenox subcutaneous for DVT prophylaxis. Progress Note: Quality VTE Deep Vein Thrombosis/Pulmonary Embolism Present on Admission: No
[2018-04-09] MEDS: Piperacil/Tazo 3.375 GM Premix 3.375 GM/50 ML PIGGYBACK IV.SIG SCH ×4 (00:11→18:09)
[2018-04-09] MEDS: diazePAM 5 MG Tablet PO PRN ×2 (01:29→17:51)
[2018-04-09] MEDS: Morphine Inj 4 MG/ML Vial IV.PUSH PRN ×4 (03:10→20:41)
[2018-04-09] MEDS: Vancomycin Inj 1,250 MG in Sodium Chlor 0.9% Inj 250 ML IV.SIG SCH ×3 (03:49→20:42)
[2018-04-09] MEDS: Sod Chloride 0.9% Inj 1,000 ML IV.CONT SCH ×2 (08:35→18:08)
[2018-04-09] MEDS: Enoxaparin Inj 40 MG/0.4 ML Syringe SQ SCH (08:39)
[2018-04-09] MEDS: Senna/Docusate Sodium 8.6/50 MG Tablet PO SCH ×2 (08:39→20:42)
[2018-04-09] MEDS ORDERED: Pharmacy Ordered Lab Info OTHER ONE (11:45)
--- NOTE | 2018-04-09 12:42 | MB ---
cc: Patricio Forman MD DATE: 04/09/2018 HISTORY OF PRESENT ILLNESS: This patient is a 32-year-old lady with history of amputated great toe, osteomyelitis, asthma. Consultation was obtained for consideration of TULIO. The patient does report dysphagia for pills. She is currently resting in bed, in no acute distress. She was admitted on 04/04/2018 with complaints of myalgias or arthralgias after a fall, reportedly woke up in a "pool of blood", also complains of flank pain, throbbing chest pain, dyspnea. PAST MEDICAL HISTORY: Per history of present illness. SOCIAL HISTORY: She smokes cigarettes daily. Smokes marijuana. Drinks alcohol 2-3 times a week. ALLERGIES: NONE. PAST MEDICAL HISTORY: Also includes asthma and wrist surgery. MEDICATIONS IN THE HOSPITAL: 1. Flexeril 5 mg q. 8 hours. 2. Lovenox 40 mg subcutaneous daily. 3. Nicotine patch. 4. Zosyn. 5. Lori-Colace. 6. Vancomycin IV. PHYSICAL EXAMINATION: VITAL SIGNS: Pulse 89, respiratory rate 18, temperature 98.1, blood pressure 113/68, sats 95% on room air. GENERAL: She is alert and oriented x3, in no acute distress. NECK: Supple. No JVD. No bruit. CARDIOVASCULAR: S1, S2. No murmurs, rubs or gallops. LUNGS: Coarse breath sounds bilaterally. ABDOMEN: Soft, nontender, nondistended with positive bowel sounds. EXTREMITIES: Lower extremity edema. DIAGNOSTIC DATA: The patient underwent incision and drainage of left upper extremity lateral arm abscess on 04/07/2018. Thoracic spine MRI 04/06/2018 with extensive paravertebral enhancement extending from the superior aspect of T4 to the inferior aspect of T10. This area of enhancement measures 2.9 cm AP x 12.0 cm sagittal dimension. Paravertebral fluid collection is noted anterior to the T6 through T8 vertebral bodies and measures 3.7 cm sagittal by 4.5 cm transverse x 2.8 cm AP dimension. The findings are suggestive of probable paravertebral abscess. There is displacement of the descending thoracic aorta anteriorly related to this collection also. Evidence of severe acute compression deformity involving T7 with underlying enhancement of the vertebral body. Moderate compression deformity involving T9, and mild to moderate compression deformity involving T3. Focal enhancement involving the left posterolateral aspect of the T6 vertebral body as well as the central portion of the T4 vertebral body. Also, no spinal stenosis is noted. Right pleural effusion, hepatosplenomegaly. Humerus MRI 04/06/2018: Suspected small abscess within the distal lateral soft tissues measuring 2.01 x 1.8 cm. No osteomyelitis. EKG 04/04/2018: Sinus tachycardia at 112 beats per minute, otherwise normal. Head CT 04/04/2018: No acute intracranial abnormalities. Chest CTA 04/04/2018: Negative for pulmonary embolus and normal, complex presumed fluid collection in the paravertebral region of the lower thoracic spine. Centered around it was severe compression deformity at the lower thoracic spine, probably T8. There is also a loculated right pleural effusion, cannot exclude infection. Would recommend MRI of the thoracic spine to assess for diskitis or osteomyelitis. Small free flowing left effusion and subsegmental basilar airspace disease, right greater than left. Prior left manubrial fracture with partial nonunion. Cervical spine CT 04/04/2018: No acute findings in the cervical spine. CT abdomen and pelvis CT 04/04/2018: Severe compression fracture of T7 with prominent paravertebral hemorrhage which will be discussed. On CT pulmonary angiogram: Fracture also T9, small amount of pelvic free fluid. Shoulder x-ray 04/04/2018: Distal right clavicle fracture. Echocardiogram 04/06/2018: EF 65-70%, trace to mild mitral regurgitation, PA systolic pressure 31 mmHg. LABORATORY DATA: One culture on 04/04/2018, growing out Staphylococcus aureus. All other cultures are negative at 5 days. White count 15.3, hemoglobin 10.8, hematocrit 31.7, platelet count 510,000. INR is 1.1. Sodium 134, potassium 3.6, chloride 98, bicarbonate 28.3, BUN 12, creatinine 0.57. Beta hCG less than 1. Troponin less than 0.02. Calcium 8.1. Toxicology positive for opiates, amphetamines, cocaine, cannabinoids. DIAGNOSES: 1. Paravertebral abscess. 2. Left upper extremity abscess, status post incision and drainage. 3. Severe compression fracture of T7. 4. Vertebral hemorrhage. 5. Fracture T9. 6. Hepatosplenomegaly. 7. Distal right clavicle fracture. 8. Prior left manubrial fracture with partial nonunion. 9. Left pleural effusion. 10. Intravenous drug abuse. 11. Marijuana abuse. 12. Amphetamine abuse. 13. Cocaine abuse. 14. Tobacco abuse. 15. Alcohol abuse. 16. Dysphagia. 17. Hyponatremia. 18. Hypokalemia. 19. Thrombocytosis. 20. Anemia. 21. Elevated white count. DISCUSSION: The patient will need an evaluation for dysphagia prior to TULIO. We will get a GI consult. I am also concerned about her candidacy for valve replacement should she be found to have endocarditis. Will discuss with CT surgery prior to TULOI. If the patient is not a candidate for valve replacement, would consider deferring TULIO. MD GIULIA Boles/viviane , 11:44 AM , 11:59 AM
--- NOTE | 2018-04-09 12:56 | P.PNID ---
Subjective Remarks: Patient is a 32-year-old female, presented to the hospital complaining of severe pain especially on her right shoulder and in her back. She apparently fell and she had been drinking and she fell on her right side and hit her head and shoulder. This was about 2 weeks ago. Since then she has had pain, but the pain started increasing. Patient has known IV drug use and has been injecting. She also noted a painful nodule on her left biceps. The last 2 days she has been having fevers. Patient also has been having cough for the last week and has been bringing up some grayish phlegm. Denies any chest pain. She said she has had some vomiting. No diarrhea. Denies any dysuria, but she noted that her urine looks very dark and concentrated. Patient has been admitted, and she had 2 blood cultures done one is growing staph aureus. She has been found to have a paravertebral fluid collection with some pushing on the thoracic aorta. She has loculated effusion on the right, and a free- flowing effusion on the left side. Patient also with evidence of compression fracture severe in T7, and has other areas of fracture in her thoracic spine. Patient is being evaluated by neurosurgery. Orthopedic ulcers on the patient for to evaluate the abscess on her left upper arm. Her WBC is elevated at 15, 000. Urinalysis is okay. Infectious disease consultation has been requested to assist with evaluation and treatment. Notes reviewed Temps better overnight C/O back pain Cardiology notes reviewed Paravertebral fluid aspirated yesterday - got only 5 cc body fluid Fluid C/S pending LUE abscess - skin bacteria No new (+) BC Has central line in place Antibiotics: Vancomycin Zosyn Lines: PIV Past Medical History: Amputated great toe of right foot Asthma Osteomyelitis Status post wrist surgery Allergies/Adverse Reactions: Allergies No Known Allergies Allergy (Verified 01/21/18 11:21) Objective Vital Signs 04/08/18 15:40 04/08/18 15:55 04/08/18 16:25 Temperature 98.7 F Pulse Rate 107 H 105 H 107 H Respiratory Rate 18 16 16 Blood Pressure 134/87 130/73 128/74 Pulse Oximetry 92 L 93 L 93 L 04/08/18 20:00 04/09/18 00:00 04/09/18 04:00 Temperature 98.9 F 98.1 F 97.8 F Pulse Rate 111 H 117 H 93 H Respiratory Rate 18 18 16 Blood Pressure 96/61 L 122/74 111/62 Pulse Oximetry 95 96 94 L 04/09/18 08:00 04/09/18 12:00 04/09/18 12:47 Temperature 98.1 F 98.3 F Pulse Rate 89 95 H Respiratory Rate 18 18 20 Blood Pressure 113/68 120/59 L Pulse Oximetry 95 93 L Intake & Output 04/08/18 04/09/18 04/09/18 18:59 06:59 18:59 Intake Total 1772.5 / 1772.5 2555.0 / 2555.0 350 / 350 Balance 1772.5 / 1772.5 2555.0 / 2555.0 350 / 350 Weight 60.7 kg Intake: IV 1412.5 / 1412.5 1575.0 / 1575.0 350 / 350 NS Inj 1,000 ML @ 100 mls/hr IV 1000 / 1000 1000 / 1000 300 / 300 .CONT .Q10H [facility] Rx#:[id number] Zosyn 3.375 GM Premix 3.375 gm 150 / 150 50 / 50 50 / 50 In 50 ml @ 100 mls/hr IV.SIG Q6H [facility] Rx#:[id number] Vancomycin Inj 1,250 MG In NS 262.5 / 262.5 525.0 / 525.0 Inj 250 ML @ 250 mls/hr IV.SIG Q8H [facility] Rx#:[id number] Oral 360 / 360 980 / 980 Other: # Voids 3 2 Date of Last Bowel Movement 04/07/18 04/08/18 15:25 Fluid - Other Gram Stain - Final 04/08/18 15:25 Fluid - Other Body Fluid Culture - Pending 04/08/18 18:20 Blood - Peripheral Aerobic Blood Culture - Preliminary No growth in 1 day 04/08/18 18:20 Blood - Peripheral Anaerobic Blood Culture - Preliminary No growth in 1 day 04/08/18 18:25 Blood - Peripheral Aerobic Blood Culture - Preliminary No growth in 1 day 04/08/18 18:25 Blood - Peripheral Anaerobic Blood Culture - Preliminary No growth in 1 day 04/04/18 23:40 Blood - Peripheral Aerobic Blood Culture - Final No growth in 5 days 04/04/18 23:40 Blood - Peripheral Anaerobic Blood Culture - Final No growth in 5 days 02/25/19 23:30 Blood - Peripheral Aerobic Blood Culture - Final No growth in 5 days 04/04/18 23:30 Blood - Peripheral Anaerobic Blood Culture - Final Staphylococcus aureus 04/07/18 10:10 Abscess - Arm Gram Stain - Final 04/07/18 10:10 Abscess - Arm Wound Culture - Final Heavy growth normal skin babatunde No anaerobes isolated Imaging: ITS Impressions Shoulder X-Ray 04/04/18 21:31 CONCLUSION: Distal right clavicle fracture Abdomen/Pelvis CT 04/04/18 21:32 CONCLUSION: 1. Severe compression fracture at T7 with prominent prevertebral hemorrhage which would be discussed on CT pulmonary angiogram. Fracture also T9. 2. Small amount of pelvic free fluid. Cervical Spine CT 04/04/18 21:32 CONCLUSION: 1. No acute findings on cervical spine CT. Chest CTA 04/04/18 21:32 CONCLUSION: 1. Negative for pulmonary embolus. 2. Abnormal complex presumed fluid collection in the paravertebral region of the lower thoracic spine centered around a severe compression deformity at the lower thoracic spine, probably T8. There is also a loculated right pleural effusion. Cannot exclude infection. Would recommend MRI of the thoracic spine to assess for discitis or osteomyelitis. 3. Small free-flowing left effusion. Subsegmental basilar airspace disease, right greater than left. 4. Prior left manubrial fracture with partial nonunion. Chest X-Ray 04/04/18 21:32 CONCLUSION: Right basilar infiltrate. Head CT 04/04/18 21:32 CONCLUSION: 1. No acute intracranial abnormalities. . . Humerus MRI 04/06/18 00:00 CONCLUSION: 1. Suspected small abscess within the distal lateral soft tissues measuring 2.0 x 1.8 cm. 2. No osteomyelitis. Thoracic Spine MRI 04/06/18 08:40 CONCLUSION: 1. Extensive paravertebral enhancement extending from the superior aspect of T4 to the inferior aspect of T10. This area of enhancement measures 2.9 cm AP by 12.0 cm sagittal dimension. Paravertebral fluid collection is noted anterior to the T6 through T8 vertebral bodies and measures 3.7 cm sagittal by 4.5 cm transverse by 2.8 cm AP dimension. The findings are suggestive of probable paravertebral abscess. There is displacement of the descending thoracic aorta anteriorly related to this collection also. 2. Evidence of a severe acute compression deformity involving T7 with underlying enhancement of the vertebral body. 3. Moderate compression deformity involving T9 and mild to moderate compression deformity involving T3. Focal enhancement involving the left posterior lateral aspect of the T6 vertebral body as well as the central portion of the T4 vertebral body also. 4. No spinal stenosis is noted. 5. Right pleural effusion. 6. Hepatosplenomegaly. Central Venous Line 04/08/18 00:00 CONCLUSION: 1. Uncomplicated line placement as above. Needle Aspiration CT 04/08/18 00:00 CONCLUSION: 1. Uncomplicated CT guided aspiration of T7 paraspinal fluid, as above.. Physical Exam: GENERAL: awake and alert, not in respiratory distress. Patient is wearing a thoracic brace SKIN: Warm and dry. No generalized rash, no ecchymoses and no evidence of embolic lesions. HEAD: Atraumatic. Normocephalic. No temporal wasting, or tenderness. EYES: [place] conjunctiva. No petechia or hemorrhage. No scleral icterus. No injection or drainage. EARS, NOSE AND THROAT: Mucous membranes pink and moist. No oral lesions noted. No exudate. No oral thrush. NECK: Trachea midline. Supple and not tender, no meningeal signs CARDIOVASCULAR: Regular rate and rhythm. No murmurs, rubs or gallops heard RESPIRATORY: Clear to auscultation. Breath sounds equal bilaterally. No rales , wheezing or rhonchi ABDOMEN: Soft, non-tender, nondistended. Bowel sounds present and normoactive. No guarding. No rebound. No organomegaly. EXTREMITIES: No clubbing, cyanosis, or edema. Dry dressing L upper arm. No joint effusion, has good ROM. No calf tenderness. NEUROLOGICAL: Grossly non-focal PSYCHIATRIC: Normal affect, calm and cooperative. LINE: No evidence of infection Assessment and Plan - Plan Impression Staph aureus sepsis - worrisome for IE Paravertebral abscess, ?into thoracic cavity (has loculated effusion R) Abscess LUE,superficial Multiple thoracic spine fracture R clavicular fracture Recommendation Follow repeat 2 [facility] Cardiology evaluating for TULIO Baseline ESR and CRP Continue Vanco and Zosyn Adjust Abx once C/S finalized Follow temps Follow C/S Monitor progress
[2018-04-09 13:21] LABS: Glomerular Filtration Rate Greater Than 89 mL/min (>89)
--- NOTE | 2018-04-09 16:52 | P.CONGI ---
History of Present Illness Consult date: 04/09/18 Consult reason: Dysphagia , clearance for TULIO Chief complaint: Osteomyelitis/Discitis, Clavicle Fracture History of Present Illness: Patient is a 32-year-old female, presented to the hospital complaining of severe pain in right shoulder and back s/p a fall about 2 weeks ago after she had been drinking which lead to loss in balance. Patient has known hx of IV drug use and has been injecting. Workup revealed sepsis, staph aureus bacteremia , left upper extremity abscess,Vertebrae abscess of T6-T10 and pleural effusion. ID, orthopedic, surgery and cardiology on the case. GI been consulted for evaluation for dysphagia. Patient states difficulty swallowing pills for past couple of days, odynophagia , and feels like she has strep throat, she also has been coughing up some black substance. There is plans for TULIO pending gastroenterology evaluation. Denies nausea, vomiting, abdomen pain, melena or hematochezia. Endorses chronic anemia since young age of unknown etiology <Hamida Gong - Last Filed: 04/09/18 16:34> Review of Systems All other systems reviewed negative except as stated in HPI <Hamida Gong - Last Filed: 04/09/18 16:34> PMFSH - History History Provided By: Patient - Medical History Medical History: Medical History (Last Reviewed 04/06/18 @ 15:05 by Eden Li MD) Amputated great toe of right foot Asthma Osteomyelitis - Surgical History Surgical History: Surgical History (Last Reviewed 04/06/18 @ 15:05 by Eden Li MD) Status post wrist surgery - Tobacco History Second Hand Smoke Exposure: Yes Tobacco Use In Past 30 Days: Yes Smoking Status: Current every day smoker Tobacco Type: Cigarettes - Alcohol History How Often Do You Have a Drink Containing Alcohol: 2 to 3 times a week - Substance Use History Substance History: Active Abuse, Past History - Substance Use Type Amphetamines Status: Active Route Used: Intravenously Comment: also opioids, marijuana, etoh - Travel History Recent Travel in the [place] Within the Last 8 Weeks: No Recent Travel Out of the Country Within the Last 8 Weeks: No - Immunization History Tetanus Immunization: Never Vaccinated Hx Influenza Vaccine This Season: No <Hamida Gong - Last Filed: 04/09/18 16:34> - Medical History Medical History: Medical History (Last Reviewed 04/06/18 @ 15:05 by Eden Li MD) Amputated great toe of right foot Asthma Osteomyelitis - Surgical History Surgical History: Surgical History (Last Reviewed 04/06/18 @ 15:05 by Eden Li MD) Status post wrist surgery <Alonzo Deleon - Last Filed: 04/10/18 09:11> Medications and Allergies Active Medications: Active Medications Acetaminophen (Tylenol) 650 mg PO Q4H PRN PRN Reason: Headache, fever, pain 1-4 Last Admin: 04/07/18 18:21 Dose: 650 mg Hydrocodone Bitart/Acetaminophen (Mccaskill 10/325) 1 tab PO Q4H PRN PRN Reason: Pain 5-10 Last Admin: 04/09/18 11:31 Dose: 1 tab Al Hydroxide/Mg Hydroxide (Milk Of Magnesia Liq) 30 ml PO Q12H PRN PRN Reason: Mild Constipation Albuterol (Ventolin Hfa Inh) 2 puff INH Q4H PRN PRN Reason: SHORTNESS OF BREATH Bisacodyl (Dulcolax Supp) 10 mg RECTAL DAILY PRN PRN Reason: SEVERE CONSITIPATION Cyclobenzaprine HCl (Flexeril) 5 mg PO Q8HR [facility] Last Admin: 04/09/18 13:35 Dose: 5 mg Diazepam (Valium) 5 mg PO Q12H PRN PRN Reason: ANXIETY AND/OR INSOMNIA Last Admin: 04/09/18 01:29 Dose: 5 mg Enoxaparin Sodium (Lovenox Inj) 40 mg SQ DAILY [facility] Last Admin: 04/09/18 08:39 Dose: 40 mg Piperacillin/Tazobactam/Dextrose (Zosyn 3.375 Gm Premix) 3.375 gm in 50 mls @ 100 mls/hr IV.SIG Q6H [facility] Last Infusion: 04/09/18 12:07 Dose: Infused Sodium Chloride (Ns Inj) 1,000 mls @ 100 mls/hr IV.CONT .Q10H [facility] Last Infusion: 04/09/18 13:46 Dose: 100 mls/hr Vancomycin HCl 1,250 mg/ (Sodium Chloride) 262.5 mls @ 250 mls/hr IV.SIG Q8H [facility] Last Infusion: 04/09/18 14:40 Dose: Infused Lactulose (Lactulose Liq) 30 ml PO DAILY PRN PRN Reason: SEVERE CONSITIPATION Morphine Sulfate (Morphine Inj) 5 mg IV.PUSH Q4H PRN PRN Reason: BREAKTHROUGH PAIN Last Admin: 04/09/18 13:34 Dose: 5 mg Nicotine (Habitrol 14 Mg Patch.24 Hr) 1 patch T-DERMAL DAILY [facility] Last Admin: 04/09/18 08:38 Dose: 1 patch Ondansetron HCl (Zofran Inj) 4 mg IV.PUSH Q6H PRN PRN Reason: NAUSEA OR VOMITING Last Admin: 04/09/18 11:40 Dose: 4 mg Pharmacy Profile Note (Vancomycin Consult Pharmacy) 1 each OTHER UNSCH PRN PRN Reason: Pharmacy to dose Senna/Docusate Sodium (Lori-Colace) 1 tab PO BID [facility] Last Admin: 04/09/18 08:39 Dose: 1 tab Sennosides (Senokot) 17.2 mg PO Q12H PRN PRN Reason: Moderate Constipation Sodium Chloride (Ns Flush) 2 ml IV.FLUSH BID [facility] Last Admin: 04/09/18 08:39 Dose: 2 ml Sodium Chloride (Ns Flush) 2 ml IV.FLUSH PRN PRN PRN Reason: FLUSH AFTER USING IV ACCESS Last Admin: 04/06/18 04:14 Dose: 2 ml <Hamida Gong - Last Filed: 04/09/18 16:34> Active Medications: Active Medications Acetaminophen (Tylenol) 650 mg PO Q4H PRN PRN Reason: Headache, fever, pain 1-4 Last Admin: 04/07/18 18:21 Dose: 650 mg Hydrocodone Bitart/Acetaminophen (Mccaskill 10/325) 1 tab PO Q4H PRN PRN Reason: Pain 5-10 Last Admin: 04/10/18 06:15 Dose: 1 tab Al Hydroxide/Mg Hydroxide (Milk Of Magnesia Liq) 30 ml PO Q12H PRN PRN Reason: Mild Constipation Albuterol (Ventolin Hfa Inh) 2 puff INH Q4H PRN PRN Reason: SHORTNESS OF BREATH Bisacodyl (Dulcolax Supp) 10 mg RECTAL DAILY PRN PRN Reason: SEVERE CONSITIPATION Cyclobenzaprine HCl (Flexeril) 5 mg PO Q8HR [facility] Last Admin: 04/10/18 06:15 Dose: 5 mg Diazepam (Valium) 5 mg PO Q12H PRN PRN Reason: ANXIETY AND/OR INSOMNIA Last Admin: 04/10/18 06:15 Dose: 5 mg Enoxaparin Sodium (Lovenox Inj) 40 mg SQ DAILY [facility] Last Admin: 04/09/18 08:39 Dose: 40 mg Piperacillin/Tazobactam/Dextrose (Zosyn 3.375 Gm Premix) 3.375 gm in 50 mls @ 100 mls/hr IV.SIG Q6H [facility] Last Infusion: 04/10/18 06:50 Dose: Infused Sodium Chloride (Ns Inj) 1,000 mls @ 100 mls/hr IV.CONT .Q10H [facility] Last Admin: 04/10/18 04:36 Dose: 100 mls/hr Vancomycin HCl 1,250 mg/ (Sodium Chloride) 262.5 mls @ 250 mls/hr IV.SIG Q8H [facility] Last Infusion: 04/10/18 04:56 Dose: Infused Lactated Ringer's (Lr 1000 Ml Inj) 1,000 mls @ 30 mls/hr IV.CONT .Q24H ONE Stop: 04/11/18 07:29 Sodium Chloride (Ns Inj) 500 mls @ 30 mls/hr IV.CONT .[id number] ONE Stop: 04/11/18 00:09 Lactulose (Lactulose Liq) 30 ml PO DAILY PRN PRN Reason: SEVERE CONSITIPATION Morphine Sulfate (Morphine Inj) 5 mg IV.PUSH Q4H PRN PRN Reason: BREAKTHROUGH PAIN Last Admin: 04/10/18 03:51 Dose: 5 mg Nicotine (Habitrol 14 Mg Patch.24 Hr) 1 patch T-DERMAL DAILY [facility] Last Admin: 04/09/18 08:38 Dose: 1 patch Ondansetron HCl (Zofran Inj) 4 mg IV.PUSH Q6H PRN PRN Reason: NAUSEA OR VOMITING Last Admin: 04/09/18 11:40 Dose: 4 mg Pharmacy Profile Note (Vancomycin Consult Pharmacy) 1 each OTHER UNSCH PRN PRN Reason: Pharmacy to dose Senna/Docusate Sodium (Lori-Colace) 1 tab PO BID [facility] Last Admin: 04/09/18 20:42 Dose: 1 tab Sennosides (Senokot) 17.2 mg PO Q12H PRN PRN Reason: Moderate Constipation Sodium Chloride (Ns Flush) 2 ml IV.FLUSH BID [facility] Last Admin: 04/09/18 20:42 Dose: 2 ml Sodium Chloride (Ns Flush) 2 ml IV.FLUSH PRN PRN PRN Reason: FLUSH AFTER USING IV ACCESS Last Admin: 04/06/18 04:14 Dose: 2 ml <Cindy Deleonian - Last Filed: 04/10/18 09:11> Allergies Allergy/AdvReac Type Severity Reaction Status Date / Time No Known Allergies Allergy Verified 01/21/18 11:21 Home Medications Medication Instructions Recorded Confirmed Type albuterol sulfate 2 puff INHALATION Q4-6H PRN 01/21/18 04/04/18 History Exam Vital signs: Vital Signs 04/08/18 20:00 04/09/18 00:00 04/09/18 04:00 Temperature 98.9 F 98.1 F 97.8 F Pulse Rate 111 H 117 H 93 H Respiratory Rate 18 18 16 Blood Pressure 96/61 L 122/74 111/62 Pulse Oximetry 95 96 94 L 04/09/18 08:00 04/09/18 12:00 04/09/18 12:47 Temperature 98.1 F 98.3 F Pulse Rate 89 95 H Respiratory Rate 18 18 20 Blood Pressure 113/68 120/59 L Pulse Oximetry 95 93 L Intake & Output 04/08/18 04/09/18 04/09/18 18:59 06:59 18:59 Intake Total 1772.5 / 1772.5 2555.0 / 2555.0 1062.5 / 1062.5 Balance 1772.5 / 1772.5 2555.0 / 2555.0 1062.5 / 1062.5 Weight 60.7 kg Intake: IV 1412.5 / 1412.5 1575.0 / 1575.0 1062.5 / 1062.5 NS Inj 1,000 ML @ 100 mls/hr IV 1000 / 1000 1000 / 1000 750 / 750 .CONT .Q10H [facility] Rx#:[id number] Zosyn 3.375 GM Premix 3.375 gm 150 / 150 50 / 50 50 / 50 In 50 ml @ 100 mls/hr IV.SIG Q6H [facility] Rx#:[id number] Vancomycin Inj 1,250 MG In NS 262.5 / 262.5 525.0 / 525.0 262.5 / 262.5 Inj 250 ML @ 250 mls/hr IV.SIG Q8H [facility] Rx#:[id number] Oral 360 / 360 980 / 980 Other: # Voids 3 2 Date of Last Bowel Movement 04/07/18 04/07/18 - Constitutional no acute distress - Routine HEENT Exam Head: Present: normocephalic - Routine Respiratory Exam Present: CTA bilaterally - Routine Cardiovascular Exam Present: RRR - Routine Abdominal Exam Present: soft, normoactive bowel sounds. Absent: tenderness, distended - Routine Skin Exam Present: intact, dry. Absent: jaundice - Routine Neurological Exam Present: alert, oriented X3 <Hamida Gong - Last Filed: 04/09/18 16:34> Vital signs: Vital Signs 04/09/18 12:00 04/09/18 12:47 04/09/18 16:00 Temperature 98.3 F 98.9 F Pulse Rate 95 H 106 H Respiratory Rate 18 20 18 Blood Pressure 120/59 L 101/63 Pulse Oximetry 93 L 97 04/09/18 19:20 04/09/18 22:58 04/10/18 00:00 Temperature 98.3 F 98.2 F Pulse Rate 111 H 106 H Respiratory Rate 17 16 17 Blood Pressure 104/57 L 130/61 Pulse Oximetry 95 94 L 04/10/18 03:20 Temperature 98.2 F Pulse Rate 95 H Respiratory Rate 17 Blood Pressure 129/72 Pulse Oximetry 93 L Intake & Output 04/09/18 04/10/18 04/10/18 18:59 06:59 18:59 Intake Total 1862.5 / 1862.5 2345.0 / 2345.0 Balance 1862.5 / 1862.5 2345.0 / 2345.0 Weight 66.2 kg Intake: IV 1362.5 / 1362.5 1625.0 / 1625.0 NS Inj 1,000 ML @ 100 mls/hr IV 1000 / 1000 1000 / 1000 .CONT .Q10H [facility] Rx#:[id number] Zosyn 3.375 GM Premix 3.375 gm 100 / 100 100 / 100 In 50 ml @ 100 mls/hr IV.SIG Q6H [facility] Rx#:[id number] Vancomycin Inj 1,250 MG In NS 262.5 / 262.5 525.0 / 525.0 Inj 250 ML @ 250 mls/hr IV.SIG Q8H [facility] Rx#:[id number] Oral 500 / 500 720 / 720 Other: # Voids 4 2 Date of Last Bowel Movement 04/07/18 04/09/18 # Bowel Movements 2 <Alonzo Deleon - Last Filed: 04/10/18 09:11> Results - Labs CBC & Chem 7: 04/06/18 06:32 04/09/18 12:44 Labs: Laboratory Results - last 24 hr 04/09/18 04/09/18 12:44 12:44 Creatinine 0.53 Estimated GFR Greater than 89 Vancomycin Trough 18.8 H <Hamida Gong - Last Filed: 04/09/18 16:34> - Labs CBC & Chem 7: 04/06/18 06:32 04/09/18 12:44 Labs: Laboratory Results - last 24 hr 04/09/18 04/09/18 04/10/18 12:44 12:44 06:00 ESR Greater than 140 H Creatinine 0.53 Estimated GFR Greater than 89 C-Reactive Protein Vancomycin Trough 18.8 H 04/10/18 06:00 ESR Creatinine Estimated GFR C-Reactive Protein 19.00 H Vancomycin Trough <Alonzo Deleon - Last Filed: 04/10/18 09:11> Assessment and Plan - Plan -Dysphagia/odynophagiaongoing for a couple of days mostly with swallowing pills , bringing up some black substance Needs clearance for TULIO - Patient has known hx of IV drug use and has been injecting - sepsis, staph aureus bacteremia, left upper extremity abscess,Vertebrae abscess of T6-T10 and pleural effusion. ID, orthopedic, surgery and cardiology on the case. - Fall s/p intoxication- - chronic anemia since young age of unknown etiology-denies any signs of active GI bleed Plan: - PERCY - EGD/dill tomorrow - NPO mn - Supportive care -Patient seen and examined by Dr. Deleon and myself and this note is written on his behalf. <Hamida Gong - Last Filed: 04/09/18 16:34> - Attending Attestation I have seen and examined the patient and reviewed the relevant portions of the chart and discussed the patient's current complaints, results and findings with the [employer]. We have reviewed the therapeutic plan for the patient. I agree with the above assessment and recommendations as documented above. <Alonzo Deleon - Last Filed: 04/10/18 09:11>
--- NOTE | 2018-04-09 21:21 | P.PNIM ---
Subjective Interval history: Follow-up for IV drug use, sepsis, paravertebral abscess in the thoracic area, left upper extremity abscess. Pt is currently doing well. No fever, chills. GI and Cardiology evaluated patient today. Physical Exam Vital signs: Vital Signs 04/09/18 00:00 04/09/18 04:00 04/09/18 08:00 Temperature 98.1 F 97.8 F 98.1 F Pulse Rate 117 H 93 H 89 Respiratory Rate 18 16 18 Blood Pressure 122/74 111/62 113/68 Pulse Oximetry 96 94 L 95 04/09/18 12:00 04/09/18 12:47 04/09/18 16:00 Temperature 98.3 F 98.9 F Pulse Rate 95 H 106 H Respiratory Rate 18 20 18 Blood Pressure 120/59 L 101/63 Pulse Oximetry 93 L 97 04/09/18 19:20 Temperature 98.3 F Pulse Rate 111 H Respiratory Rate 17 Blood Pressure 104/57 L Pulse Oximetry 95 Intake & Output 04/09/18 04/09/18 04/10/18 06:59 18:59 06:59 Intake Total 2555.0 / 2555.0 1862.5 / 1862.5 Balance 2555.0 / 2555.0 1862.5 / 1862.5 Weight 60.7 kg Intake: IV 1575.0 / 1575.0 1362.5 / 1362.5 NS Inj 1,000 ML @ 100 mls/hr IV 1000 / 1000 1000 / 1000 .CONT .Q10H [facility] Rx#:[id number] Zosyn 3.375 GM Premix 3.375 gm 50 / 50 100 / 100 In 50 ml @ 100 mls/hr IV.SIG Q6H [facility] Rx#:[id number] Vancomycin Inj 1,250 MG In NS 525.0 / 525.0 262.5 / 262.5 Inj 250 ML @ 250 mls/hr IV.SIG Q8H [facility] Rx#:[id number] Oral 980 / 980 500 / 500 Other: # Voids 2 4 Date of Last Bowel Movement 04/07/18 04/07/18 Narrative: GENERAL: Well-nourished, well-developed patient. SKIN: Warm and dry. No splinter hemorrhage noted. HEAD: Normocephalic. EYES: No scleral icterus. No injection or drainage. NECK: Supple, trachea midline. No JVD or lymphadenopathy. CARDIOVASCULAR: Regular rhythm, tachycardic without murmurs, gallops, or rubs. RESPIRATORY: Breath sounds equal bilaterally. No accessory muscle use. GASTROINTESTINAL: Abdomen soft, non-tender, nondistended. MUSCULOSKELETAL: No cyanosis, or edema. Status post I&D of the left upper extremity abscess. BACK: Nontender without obvious deformity. No CVA tenderness. Results Labs CBC & Chem 7: 04/06/18 06:32 04/09/18 12:44 Labs: Microbiology 04/08/18 15:25 Fluid - Other Gram Stain - Final 04/08/18 15:25 Fluid - Other Body Fluid Culture - Preliminary No growth in 24 hours 04/08/18 18:20 Blood - Peripheral Aerobic Blood Culture - Preliminary No growth in 1 day 04/08/18 18:20 Blood - Peripheral Anaerobic Blood Culture - Preliminary No growth in 1 day 04/08/18 18:25 Blood - Peripheral Aerobic Blood Culture - Preliminary No growth in 1 day 04/08/18 18:25 Blood - Peripheral Anaerobic Blood Culture - Preliminary No growth in 1 day 04/04/18 23:40 Blood - Peripheral Aerobic Blood Culture - Final No growth in 5 days 04/04/18 23:40 Blood - Peripheral Anaerobic Blood Culture - Final No growth in 5 days 04/04/18 23:30 Blood - Peripheral Aerobic Blood Culture - Final No growth in 5 days 04/04/18 23:30 Blood - Peripheral Anaerobic Blood Culture - Final Staphylococcus aureus 04/07/18 10:10 Abscess - Arm Gram Stain - Final 04/07/18 10:10 Abscess - Arm Wound Culture - Final Heavy growth normal skin babatunde No anaerobes isolated Assessment and Plan Plan Ms. Ambrocio is a 32-year-old female with a history of IV drug abuse who presented to the emergency department due to generalized pain. She apparently was drinking alcohol and fell about 2 weeks ago. She noticed a painful nodule on her left upper extremity above the antecubital fossa. MRI of the thoracic spine shows large paravertebral abscess formation there is also pressing against the descending aorta. Sepsis (heart rate of 100, WBC over 15, infection source left upper extremity abscess, paravertebral abscess) Left upper extremity abscess Paravertebral fluid collection of T6-T10 T7 compression deformity Probable loculated right pleural effusion Free-flowing left effusion -Vancomycin and Zosyn. Transthoracic echocardiogram completed -shows no evidence of vegetation. Consulted infectious disease as well as Dr. Jones due to paravertebral abscess with mass effect on descending aorta Appreciate neurosurgery, general surgery, orthopedic surgery input. General surgery evaluated left upper extremity abscess and performed I&D 2018. Continue acetaminophen, [place], morphine for pain management. Also continue Flexeril. -CT guided paravertebral fluid aspiration 04/08/2018. Cultures so far negative. Staph Aureus bacteremia -Discussed with ID. Cardiology evaluated patient for TULIO and consulted GI for dysphagia -s/p Central line by IR on 04/08/2018 since access and blood work seem to be difficult to do. Dysphagia Odynophagia -EGD with possible Dilatation tomorrow 04/10/2018. Right-sided clavicular fracture Orthopedic surgery recommends nonoperative management. Sling ordered for comfort. IV drug abuse Patient admits to using IV Dilaudid as well as heroin. Patient has a history of IV drug related infections before. Patient is very remorseful. 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 Full code. Lovenox subcutaneous for DVT prophylaxis. Progress Note: Quality VTE Deep Vein Thrombosis/Pulmonary Embolism Present on Admission: No
[2018-04-10] MEDS: Piperacil/Tazo 3.375 GM Premix 3.375 GM/50 ML PIGGYBACK IV.SIG SCH ×3 (00:04→13:44)
[2018-04-10] MEDS: Sod Chloride 0.9% Inj 1,000 ML IV.CONT SCH ×4 (03:32→23:42)
[2018-04-10] MEDS: Morphine Inj 4 MG/ML Vial IV.PUSH PRN ×3 (03:51→21:05)
[2018-04-10] MEDS: Vancomycin Inj 1,250 MG in Sodium Chlor 0.9% Inj 250 ML IV.SIG SCH ×4 (03:51→21:03)
[2018-04-10] MEDS: diazePAM 5 MG Tablet PO PRN (06:15)
[2018-04-10] MEDS ORDERED: Metoprolol Tartrate 25 MG Tablet PO ONE (07:30)
[2018-04-10] MEDS ORDERED: Chlorhexidine Gluconate 2% 1 Pack (2 Cloths) TOPICAL ONE (07:30)
[2018-04-10] MEDS ORDERED: Sodium Chlor 0.9% Inj 500 ML IV.CONT ONE (07:30)
--- NOTE | 2018-04-10 07:56 | P.PNIM ---
Subjective Interval history: Follow-up for IV drug use, sepsis, paravertebral abscess in the thoracic area, left upper extremity abscess. Patient is currently doing well. Denies any chest pain, shortness of breath, fever or chills. She reports some left eye itchiness and discomfort. No discharge in the left eye. Physical Exam Vital signs: Vital Signs 04/09/18 08:00 04/09/18 12:00 04/09/18 12:47 Temperature 98.1 F 98.3 F Pulse Rate 89 95 H Respiratory Rate 18 18 20 Blood Pressure 113/68 120/59 L Pulse Oximetry 95 93 L 04/09/18 16:00 04/09/18 19:20 04/09/18 22:58 Temperature 98.9 F 98.3 F Pulse Rate 106 H 111 H Respiratory Rate 18 17 16 Blood Pressure 101/63 104/57 L Pulse Oximetry 97 95 04/10/18 00:00 04/10/18 03:20 Temperature 98.2 F 98.2 F Pulse Rate 106 H 95 H Respiratory Rate 17 17 Blood Pressure 130/61 129/72 Pulse Oximetry 94 L 93 L Intake & Output 04/09/18 04/10/18 04/10/18 18:59 06:59 18:59 Intake Total 1862.5 / 1862.5 2345.0 / 2345.0 Balance 1862.5 / 1862.5 2345.0 / 2345.0 Weight 66.2 kg Intake: IV 1362.5 / 1362.5 1625.0 / 1625.0 NS Inj 1,000 ML @ 100 mls/hr IV 1000 / 1000 1000 / 1000 .CONT .Q10H [facility] Rx#:[id number] Zosyn 3.375 GM Premix 3.375 gm 100 / 100 100 / 100 In 50 ml @ 100 mls/hr IV.SIG Q6H [facility] Rx#:[id number] Vancomycin Inj 1,250 MG In NS 262.5 / 262.5 525.0 / 525.0 Inj 250 ML @ 250 mls/hr IV.SIG Q8H [facility] Rx#:[id number] Oral 500 / 500 720 / 720 Other: # Voids 4 2 Date of Last Bowel Movement 04/07/18 04/09/18 # Bowel Movements 2 Narrative: GENERAL: Well-nourished, well-developed patient. SKIN: Warm and dry. No splinter hemorrhage noted. HEAD: Normocephalic. EYES: No scleral icterus. No injection or drainage. No drainage from left eye, no redness. Medial aspect of left eye is somewhat tender to palpation. NECK: Supple, trachea midline. No JVD or lymphadenopathy. CARDIOVASCULAR: Regular rhythm, tachycardic without murmurs, gallops, or rubs. RESPIRATORY: Breath sounds equal bilaterally. No accessory muscle use. GASTROINTESTINAL: Abdomen soft, non-tender, nondistended. MUSCULOSKELETAL: No cyanosis, or edema. Status post I&D of the left upper extremity abscess. BACK: Nontender without obvious deformity. No CVA tenderness. Results Labs CBC & Chem 7: 04/06/18 06:32 04/09/18 12:44 Labs: Microbiology 04/08/18 15:25 Fluid - Other Gram Stain - Final 04/08/18 15:25 Fluid - Other Body Fluid Culture - Preliminary No growth in 24 hours 04/08/18 18:20 Blood - Peripheral Aerobic Blood Culture - Preliminary No growth in 1 day 04/08/18 18:20 Blood - Peripheral Anaerobic Blood Culture - Preliminary No growth in 1 day 04/08/18 18:25 Blood - Peripheral Aerobic Blood Culture - Preliminary No growth in 1 day 04/08/18 18:25 Blood - Peripheral Anaerobic Blood Culture - Preliminary No growth in 1 day 04/04/18 23:40 Blood - Peripheral Aerobic Blood Culture - Final No growth in 5 days 04/04/18 23:40 Blood - Peripheral Anaerobic Blood Culture - Final No growth in 5 days 04/04/18 23:30 Blood - Peripheral Aerobic Blood Culture - Final No growth in 5 days 04/04/18 23:30 Blood - Peripheral Anaerobic Blood Culture - Final Staphylococcus aureus 04/07/18 10:10 Abscess - Arm Gram Stain - Final 04/07/18 10:10 Abscess - Arm Wound Culture - Final Heavy growth normal skin babatunde No anaerobes isolated Assessment and Plan Plan Ms. Ambrocio is a 32-year-old female with a history of IV drug abuse who presented to the emergency department due to generalized pain. She apparently was drinking alcohol and fell about 2 weeks ago. She noticed a painful nodule on her left upper extremity above the antecubital fossa. MRI of the thoracic spine shows large paravertebral abscess formation there is also pressing against the descending aorta. Sepsis (heart rate of 100, WBC over 15, infection source left upper extremity abscess, paravertebral abscess) Left upper extremity abscess Paravertebral fluid collection of T6-T10 T7 compression deformity Probable loculated right pleural effusion Free-flowing left effusion -Vancomycin and Zosyn. Transthoracic echocardiogram completed -shows no evidence of vegetation. Consulted infectious disease as well as Dr. Jones due to paravertebral abscess with mass effect on descending aorta Appreciate neurosurgery, general surgery, orthopedic surgery input. General surgery evaluated left upper extremity abscess and performed I&D 2018. Continue acetaminophen, [place], morphine for pain management. Also continue Flexeril. -CT guided paravertebral fluid aspiration 04/08/2018. Cultures so far negative. Staph Aureus bacteremia -Discussed with ID. Cardiology evaluated patient for TULIO and consulted GI for dysphagia -s/p Central line by IR on 04/08/2018 since access and blood work seem to be difficult to do. Dysphagia Odynophagia -EGD with possible Dilatation today 04/10/2018. Left eye allergies -No discharge, redness. Will provide Clear eye drops. Right-sided clavicular fracture Orthopedic surgery recommends nonoperative management. Sling ordered for comfort. IV drug abuse Patient admits to using IV Dilaudid as well as heroin. Patient has a history of IV drug related infections before. Patient is very remorseful. 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 Full code. Lovenox subcutaneous for DVT prophylaxis. Progress Note: Quality VTE Deep Vein Thrombosis/Pulmonary Embolism Present on Admission: No
[2018-04-10] MEDS ORDERED: Ketamine Inj 500 MG/10 ML Vial ONE (09:05)
[2018-04-10] MEDS: Senna/Docusate Sodium 8.6/50 MG Tablet PO SCH ×2 (09:41→21:04)
[2018-04-10] MEDS ORDERED: Naphazoline 0.012% Opth Drops 30 ML Bottle LEFT EYE PRN (09:58)
[2018-04-10] MEDS: Enoxaparin Inj 40 MG/0.4 ML Syringe SQ SCH (10:14)
--- NOTE | 2018-04-10 10:23 | P.PCN ---
Date of procedure: 04/10/18 Pre-op diagnosis: Odynophagia and dysphagia Post-op diagnosis: other (Retained Gastric content, gastroparesis) Procedure: INDICATION: Odynophagia and dysphagia PROCEDURE PERFORMED: upper endoscopy with biopsy CONSENT: The patient understands the risks and benefits of the procedure and understands that these risks include, but are not limited to: sedation, allergic reaction, infection, perforation and/or bleeding. Alternative means of evaluation and treatment include, among others: physical exam, x-rays, and/or surgical intervention. The patient elects to proceed with this endoscopic procedure. Medical equipment was checked for proper function. Hand hygiene and appropriate measures for infection prevention was taken. After the risks, benefits and alternatives of the procedure were thoroughly explained, Informed consent was verified, confirmed and timeout was successfully executed by the treatment team. History and physical were updated. Patient was taken to the procedure room and placed in position. Time out was completed. ANESTHESIA: Adequate sedation was performed by anesthesia provider. PROCEDURE: Upper Endoscopy, the scope was placed in the mouth advanced under video guide to the second portion of the duodenum. The scope was then slowly withdrawn through the stomach and retro-flexion was performed to examine the cardia, the scope was then withdrawn through the esophagus with good views obtained throughout. The scope was then withdrawn out of the mouth without any immediate complications. FINDIINGS: Esophagus: Z line found at 40 cm normal esophageal mucosa upper to lower esophageal sphincter. No ulceration or erosions were seen no obvious stricture was present Stomach: Direct and retroflexed views were obtained. There was retained gastric content in the gastric fundus no erythema or ulcerations or erosions no stigmata of recent bleeding. Biopsies obtained from the gastric antrum for possible chronic gastritis. Retroflex examination revealed normal cardia and no evidence of hiatal hernia Duodenum: Normal bulb and second portion IMPRESSION: Possible gastroparesis No esophageal stricture identified COMPLICATIONS: None BLOOD LOSS: None RECOMMENDATIONS: 1- Supportive care 2- ok to transfer to recovery area 3- The patient is provided with postprocedure educational materials and contact information incase of an emergency. 4- Diet: Resume prior diet as tolerated 5- Medications: Resume preop medications 6- Disposition return to floor when meets standard criteria. Anesthesia: MAC Surgeon: Alonzo Deleon Pathology: other (gastric antrum) Condition: stable Disposition: floor
[2018-04-10] MEDS ORDERED: Piperacil/Tazo 3.375 GM Premix 3.375 GM/50 ML PIGGYBACK IV.SIG SCH (20:00)
[2018-04-10 21:10] VITALS: PULSE 104; RESP 17
[2018-04-11] MEDS: diazePAM 5 MG Tablet PO PRN (00:12)
[2018-04-11 00:16] VITALS: BP 156/89; TEMP 98.8; O2SAT 97
[2018-04-11] MEDS: Sod Chloride 0.9% Inj 1,000 ML IV.CONT SCH (00:48)
== END 2018-04-11 01:33 | disposition left against medical advice (07) | DRG 871 ==
LOC: NEPB 17:13 → NEDA 04-05 00:07 → NEDH 04-05 04:10 → NEDA 04-05 07:23 → N04 04-05 15:50
PROVIDERS: ADMIT Hospitalist; ATTEND Hospitalist
CPT/HCPCS: 10009; 10061; 36556; 70450; 71010; 71045; 71275; 72125; 72157; 73030; 73220; 74177; 76360; 76937; 77003; 77012; 80048; 80202; 80307; 81001; 82565; 83735; 84484; 84702; 84703; 85014; 85018; 85025; 85610; 85651; 85652; 85730; 86140; 87040; 87070; 87149; 87186; 87205; 88305; 88312; 90471; 90658; 90686; 90761; 90765; 90775; 93005; 93306; 96361; 96365; 96375; 99145; 99152; 99153; 99291; A9585; G0008; J1650; J2250; J2270; J2405; J2543; J3010; J3370; J7030; J7050; L0200; L0484; L0560; L0565; Q2038; Q9967